=== PATIENT | female | born 1985 | race Caucasian/White ===

== ENCOUNTER 2020-06-13 16:06 | Outpatient (REF) | payer OTHER, SELFPAY | END 2020-06-13 16:07 | disposition home or self-care (01) | LOC: HO.LAB 16:06 | PROVIDERS: Visit Provider Internal Medicine | DX: Z20.828 Contact with and (suspected) exposure to other viral communicable diseases (principal) | CPT/HCPCS: C9803; U0003 ==

== ENCOUNTER 2020-11-15 10:34 | Outpatient (REF) | payer OTHER, SELFPAY ==
[2020-11-18 23:06] LABS: TS Negative Control Passed; TS Panel A 0; TS Panel B 2; TS Positive Control Passed; TSpotTB Negative (SeeBelow)
== END 2020-11-15 10:35 | disposition home or self-care (01) ==
LOC: HO.HMGCLDS 10:34
PROVIDERS: PCP Internal Medicine; Visit Provider Internal Medicine
DX: Z11.1 Encounter for screening for respiratory tuberculosis (principal)
CPT/HCPCS: 36415; 86481

== ENCOUNTER → 2021-11-05 09:44 | Outpatient (BNVA) | payer OTHER, SELFPAY | PROVIDERS: PCP Internal Medicine; Referring Provider Internal Medicine; Visit Provider Internal Medicine Cardiovascular Disease | DX: I49.8 Other specified cardiac arrhythmias (principal) | CPT/HCPCS: 93005; 99212 ==

== ENCOUNTER 2023-01-19 12:41 | Outpatient (AMB) | payer OTHER, SELFPAY ==
--- NOTE | 2023-01-19 13:57 | AM.OFFWIN_ITS ---
Intake Vital Signs 01/19/23 14:00 BP 120/82 Blood Pressure Location Lt brachial Position Sitting Pulse 82 Pulse Source Pulse Oximeter Pulse Oximetry (%) 99 Oxygen Delivery Method Room Air Intake Visit Reasons: EP Redness around big toe (lobby) Intake Note: Patient here for redness on left big toe for about 2 weeks. she is not sure if there was an injury as she has neuropathy and most of the time has a hard time feeling pain. Patient Tobacco Use Status: Former Tobacco user Allergies sulfamethoxazole [From Bactrim] Allergy (Mild, Verified 01/23/23 14:50) RASH trimethoprim [From Bactrim] Allergy (Mild, Verified 01/23/23 14:50) RASH oxycodone Allergy (Unknown, Verified 01/23/23 14:50) hives rash penicillin V Allergy (Unknown, Verified 01/23/23 14:50) hives, rash Sulfa (Sulfonamide Antibiotics) Allergy (Unknown, Verified 01/23/23 14:50) rash amoxicillin [Amoxicillin] Adverse Reaction (Mild, Verified 01/23/23 14:50) CANT FEEL LEGS Adhesive tape Allergy (Unknown, Uncoded 01/23/23 14:50) Rash Bactrim Allergy (Unknown, Uncoded 01/23/23 14:50) Anaphylaxis From PERCOCET Allergy (Unknown, Uncoded 01/23/23 14:50) RASH PCN Allergy (Unknown, Uncoded 01/23/23 14:50) Anaphylaxis Percocet Allergy (Unknown, Uncoded 01/23/23 14:50) Rash Medication List - Last Reconciled 01/23/23 by Umang Cohen MD aspirin (Adult Low Dose Aspirin) 162 mg PO DAILY doxycycline hyclate 100 mg PO BID insulin lispro subcut insulin pump cart,cont inf,BT (Omnipod Dash Pods (Gen 4) subcutaneous cartridge) As directed insulin pump cartridge As directed PNV no.151-pdlp-czlwi acid 28 mg iron- 800 mcg tabs PO propranolol ER 160 mg PO DAILY Do you need a note to return to daycare/school/sports/work: No HPI EP Redness around big toe (lobby) HPI Details 38-year-old female presents to the office for a sick visit. Patient has redness around the big toe of her right foot. [facility] Medical History (Updated 07/21/23 @ 14:51 by Umang Cohen MD) Annual physical exam Hidradenitis suppurativa HTN (hypertension) Hyperlipidemia IBS (irritable bowel syndrome) MDD (major depressive disorder) Migraine Normal Pap smear Palpitation POTS (postural orthostatic tachycardia syndrome) Psoriasis Type 2 diabetes mellitus Surgical History History of liver biopsy Hx of cholecystectomy Family History (Updated 01/21/23 @ 13:59 by Sandrine Emmanuel [facility]) Father Diabetes HTN (hypertension) Mother Multiple sclerosis Social History Household Members Other:: Student for respiratory therapy. Two children 11 and 18-year-old Housing: House Alcohol intake: current Alcohol intake frequency: holidays/special occasions only Patient Tobacco Use Status: Former Tobacco user e-Cigarette/Vaping Use: Never Used Current occupational status: unemployed Cognitive needs: No Hearing needs: No Vision needs: No Physical Exam Vital Signs: Last Vital Signs Pulse 82 01/19/23 14:00 BP 120/82 01/19/23 14:00 Pulse Ox 99 01/19/23 14:00 Oxygen Delivery Method Room Air 01/19/23 14:00 Extrem Other: Right foot: Great toe: Erythema beneath the nail base. Tender to touch. Assessment & Plan Assessment & Plan (1) Paronychia of fifth toe: Code(s): L03.039 - Cellulitis of unspecified toe Plan: Antibiotic called in. Keep foot elevated. Coding Level of Care Code Est Pt Level 3 (68047) Diagnoses Paronychia of fifth toe L03.039
[2023-01-19 14:00] VITALS: BP 120/82; PULSE 82; O2SAT 99
== END 2023-01-19 14:33 | disposition home or self-care (01) ==
PROVIDERS: PCP Internal Medicine; Visit Provider Internal Medicine
DX: L03.039 Cellulitis of unspecified toe (principal)
CPT/HCPCS: 99213

== ENCOUNTER 2023-01-21 13:51 | Outpatient (AMB) | payer OTHER, SELFPAY ==
--- NOTE | 2023-01-21 13:53 | A.OFFPC_ITS ---
Vital Signs 01/21/23 13:54 Height 5 ft 6 in Weight 201 lb BMI 32.4 BP 118/70 Blood Pressure Location Rt brachial Position Sitting Pulse 85 Pulse Source Pulse Oximeter Pulse Oximetry (%) 100 Oxygen Delivery Method Room Air Intake Visit Reasons: Podiatry Referral-Ingrown Toenail Intake Note: Pt is here today for a sick visit. Pt c/o ingrown nail in her toenail L foot. Allergies sulfamethoxazole [From Bactrim] Allergy (Mild, Verified 01/21/23 13:57) RASH trimethoprim [From Bactrim] Allergy (Mild, Verified 01/21/23 13:57) RASH oxycodone Allergy (Unknown, Verified 01/21/23 13:57) hives rash penicillin V Allergy (Unknown, Verified 01/21/23 13:57) hives, rash Sulfa (Sulfonamide Antibiotics) Allergy (Unknown, Verified 01/21/23 13:57) rash amoxicillin [Amoxicillin] Adverse Reaction (Mild, Verified 01/21/23 13:57) CANT FEEL LEGS Adhesive tape Allergy (Unknown, Uncoded 01/21/23 13:57) Rash Bactrim Allergy (Unknown, Uncoded 01/19/23 13:59) Anaphylaxis From PERCOCET Allergy (Unknown, Uncoded 01/21/23 13:57) RASH PCN Allergy (Unknown, Uncoded 01/21/23 13:57) Anaphylaxis Percocet Allergy (Unknown, Uncoded 01/21/23 13:57) Rash Medication List - Last Reconciled 01/21/23 by Linda Toney MD aspirin (Adult Low Dose Aspirin) 162 mg PO DAILY doxycycline hyclate 100 mg PO BID insulin lispro subcut insulin pump cart,cont inf,BT (Omnipod Dash Pods (Gen 4) subcutaneous cartridge) As directed insulin pump cartridge As directed PNV no.415-rybg-bblam acid 28 mg iron- 800 mcg tabs PO propranolol ER 160 mg PO DAILY Tobacco use date assessed: 01/21/23 Dental Screening Dental Screen Date: 01/21/23 Did you have a dental visit in the last 12 months?: Yes Did you have a dental problem in the last 6 months where you did not have access to dental care?: No Was dental information given to patient?: Patient has dentist HPI Podiatry Referral-Ingrown Toenail HPI Details Patient complains of left big toe pain and swelling for the last week. Patient denies any injury or discharge. Type 1 diabetes is controlled on insulin pump and patient follows up with endocrinology. [facility] Medical History (Updated 01/21/23 @ 14:29 by Linda Toney MD) Annual physical exam Hidradenitis suppurativa HTN (hypertension) Hyperlipidemia IBS (irritable bowel syndrome) MDD (major depressive disorder) Migraine Normal Pap smear Palpitation POTS (postural orthostatic tachycardia syndrome) Psoriasis Type 2 diabetes mellitus Surgical History History of liver biopsy Hx of cholecystectomy Family History (Updated 01/21/23 @ 13:59 by Sandrine Emmanuel [facility]) Father Diabetes HTN (hypertension) Mother Multiple sclerosis Social History Household Members Other:: Student for respiratory therapy. Two children 11 and 18-year-old Housing: House Alcohol intake: current Alcohol intake frequency: holidays/special occasions only Patient Tobacco Use Status: Former Tobacco user e-Cigarette/Vaping Use: Never Used Current occupational status: unemployed Cognitive needs: No Hearing needs: No Vision needs: No Questionnaire PHQ-9 Over the last 2 weeks, how often have you been bothered by any of the following problems? 1. Little interest or pleasure in doing things: more than half the days 2. Feeling down, depressed, or hopeless: not at all 3. Trouble falling or staying asleep, or sleeping too much: more than half the days 4. Feeling tired or having little energy: more than half the days 5. Poor appetite or overeating: not at all 6. Feeling bad about yourself - or that you are a failure or have let yourself or your family down: not at all 7. Trouble concentrating on things, such as reading the newspaper or watching television: not at all 8. Moving or speaking so slowly that other people could have noticed. Or the opposite - being so fidgety or restless that you have been moving around a lot more than usual: not at all 9. Thoughts that you would be better off or of hurting yourself in some way: not at all Total score: 6 Depression Screening Interpretation: Negative Source: Developed by Madi Molinaet B.W. Jeffery, Ang Smiley and colleagues, with an educational sharon from [employer]. Thrive Questionnaire Date Thrive assessed: 01/21/23 I am a: Patient What is your living situation today?: I have a steady place to live Within the past 12 months, did the food you bought not last and you didn't have the money to get more?: Never true Within the past 12 months, did you worry whether your food would run out before you got money to buy more?: Never true Do you have trouble paying for medicines?: No Do you have trouble getting transportation to medical appointments?: No Do you have trouble paying your heating and electricity bill?: No Do you have trouble taking care of your child, family member or friend?: No Do you have trouble with day-to-day activities such as bathing, preparing meals, shopping, managing finances, etc.?: No Are you currently unemployed and looking for a job?: No Are you interested in more education?: No Please select the resources that you would like help with: None Currently or been in a relationship where the following occur: no concerns reported AUDIT C Alcohol Use Questionnaire (AUDIT-C) 1. How often do you have a drink containing alcohol?: Never 3. How often do you have six or more drinks on one occasion?: Never Total Score: 0 Review of Systems Const All systems reviewed & are unremarkable except as noted in HPI and below Reports no additional complaints Eyes Reports no additional complaints ENT Reports no additional complaints Card Reports no additional complaints Resp Reports no additional complaints GI Reports no additional complaints Physical exam (Primary Care) Vital Signs: Last Vital Signs Pulse 85 01/21/23 13:54 BP 118/70 01/21/23 13:54 Pulse Ox 100 01/21/23 13:54 Oxygen Delivery Method Room Air 01/21/23 13:54 BMI result Body Mass Index 32.4 Tobacco/Smoking Status: Tobacco use Status Tobacco use date assessed 01/21/23 01/21/23 14:00 Patient Tobacco Use Status Former Tobacco user 01/21/23 14:00 e-Cigarette/Vaping Use Never Used 01/21/23 13:53 PHQ-9: PHQ-9 Score PHQ-9: Total score 6 01/21/23 14:00 Depression Screening Interpretation: Negative Thrive Assessment: Date of Thrive Assessment Date Thrive assessed 01/21/23 01/21/23 14:00 Currently or been in a relationship where the following occur: no concerns reported Const General: no acute distress HENMT Ears: hearing grossly normal bilaterally Neck Neck: Yes supple Resp Effort & Inspection: normal respiratory effort Auscultation: clear to auscultation bilaterally Cardio Rhythm: regular rhythm Heart sounds: S1 normal heart sound present and S2 normal heart sound present Extrem Other: Left 1st toe slight erythema and tenderness of the nailfold no discharge Assessment and Plan Assessment & Plan (1) Hyperlipidemia: Code(s): E78.5 - Hyperlipidemia, unspecified Plan: check lipids (2) Type 2 diabetes mellitus: Comment: IDDM , Dr. Boland, on Insulin pump,last A1C 8.6 09/2020 Code(s): E11.9 - Type 2 diabetes mellitus without complications Plan: cont current tx (3) POTS (postural orthostatic tachycardia syndrome): Comment: f/u Dr. Maxwell Code(s): I49.8 - Other specified cardiac arrhythmias (4) Ingrown toenail of left foot: Code(s): L60.0 - Ingrowing nail Plan: Doxycycline 100 mg twice a day for 7 days is prescribed and she will be referred to podiatry Orders: Orders Comprehensive [place]. Panel Fast Today E11.9 - Type 2 diabetes mellitus without complications, E78.5 - Hyperlipidemia, unspecified, I49.8 - Other specified cardiac arrhythmias Hemoglobin A1c Today E11.9 - Type 2 diabetes mellitus without complications, E78.5 - Hyperlipidemia, unspecified, I49.8 - Other specified cardiac arrhythmias Lipid Panel Today E11.9 - Type 2 diabetes mellitus without complications, E78.5 - Hyperlipidemia, unspecified, I49.8 - Other specified cardiac arrhythmias TSH reflex Free T4 Today E11.9 - Type 2 diabetes mellitus without complications, E78.5 - Hyperlipidemia, unspecified, I49.8 - Other specified cardiac arrhythmias Complete Blood Count Auto Diff Today E11.9 - Type 2 diabetes mellitus without complications, E78.5 - Hyperlipidemia, unspecified, I49.8 - Other specified cardiac arrhythmias Microalbumin, Random (w Creat) Today E11.9 - Type 2 diabetes mellitus without complications Referrals Podiatry Referral L60.0 - Ingrowing nail Medications: New doxycycline hyclate 100 mg PO BID 14 tabs 0RF Coding Level of Care Code Est Pt Level 3 (41154) Diagnoses Hyperlipidemia E78.5 Type 2 diabetes mellitus E11.9 POTS (postural orthostatic tachycardia syndrome) I49.8 Ingrown toenail of left foot L60.0
[2023-01-21 13:54] VITALS: BP 118/70; PULSE 85; O2SAT 100; BMI 32.4
== END 2023-01-21 14:31 | disposition home or self-care (01) ==
PROVIDERS: PCP Internal Medicine; Visit Provider Internal Medicine
DX: E78.5 Hyperlipidemia, unspecified (principal); E11.9 Type 2 diabetes mellitus without complications; I49.8 Other specified cardiac arrhythmias; L60.0 Ingrowing nail
CPT/HCPCS: 99213

== ENCOUNTER 2023-02-13 08:33 | Outpatient (REF) | payer OTHER, SELFPAY ==
[2023-02-13 11:36] LABS: MANUAL DIFF FLAG NO
[2023-02-13 11:47] LABS: Basophils Absolute Auto 0.1 X10*3/uL (0.0-0.2); Basophils Percent Auto 0.6 % (0-2); Eosinophils Absolute Auto 0.2 X10*3/uL (0.0-0.4); Eosinophils Percent Auto 2.3 % (0-4); Hematocrit 43.5 % (37.0-47.0); Hemoglobin 14.4 g/dl (12.0-16.0); Imm Gran Abs Auto 0.03 X10*3/uL (0.00-0.03); Imm Gran Pct Auto 0.3 % (0.0-0.4); Lymphocytes Absolute Auto 3.5 X10*3/uL (1.2-4.9); Lymphocytes Percent Auto 34.7 % (20-40); Mean Corpuscular HGB Conc 33.1 g/dl (31.0-35.0); Mean Corpuscular Hemoglobin 29.1 pg (27.0-33.0); Mean Corpuscular Volume 88.1 fL (80.0-98.0); Monocytes Percent Auto 9.6 % (2-11); Neutrophils Absolute Auto 5.3 x10*3/uL (2.0-8.3); Neutrophils Percent Auto 52.5 % (45-73); Platelet Count 308 X10*3/uL (160-400); Red Blood Count 4.94 X10*6/uL (4.20-5.50); Red Cell Distribution Width 12.8 % (11.0-16.0); White Blood Count 10.1 X10*3/uL (4.8-10.8)
[2023-02-13 12:15] LABS: Estimated Average Glucose 183 mg/dL
[2023-02-13 12:19] LABS: Creatinine Urine 184.38 mg/dL
[2023-02-13 12:35] LABS: Alanine Aminotransferase 26 U/L (0-31); Alkaline Phosphatase 86 U/L (39-117); Anion Gap 13 (12-20); Aspartate Amino Transferase 18 U/L (5-31); Bilirubin Total 0.5 mg/dL (0.0-1.0); Blood Urea Nitrogen 11 mg/dL (9-16); Calcium 9.9 mg/dL (8.4-10.2); Carbon Dioxide 23 mmol/L (22-29); Chloride 104 mmol/L (96-108); Cholesterol 178 mg/dL; Estimated Glomerular Filt Rate > 60; Glucose Fasting 163 mg/dL (60-99); HDL Cholesterol 38 mg/dL; LDL Cholesterol Calculated 111 mg/dl; Potassium 3.8 mmol/L (3.3-5.1); Sodium 136 mmol/L (135-145); Total Protein 8.1 g/dL (6.5-8.0); Triglycerides 148 mg/dL
[2023-02-13 12:40] LABS: TSH reflex Free T4 1.42 uIU/mL (0.32-4.0)
== END 2023-02-13 08:34 | disposition home or self-care (01) ==
LOC: HO.HMGCLDS 08:33
PROVIDERS: PCP Internal Medicine; Visit Provider Internal Medicine
DX: E11.9 Type 2 diabetes mellitus without complications (principal); E78.5 Hyperlipidemia, unspecified; I49.8 Other specified cardiac arrhythmias
CPT/HCPCS: 36415; 80053; 80061; 82043; 83036; 84443; 85025

== ENCOUNTER 2023-02-17 08:36 | Outpatient (AMB) | payer OTHER, SELFPAY ==
--- NOTE | 2023-02-17 09:10 | MHC.PC.OV ---
Vital Signs 02/17/23 09:11 Height 5 ft 6 in Weight 200 lb BMI 32.3 BP 104/66 Blood Pressure Location Rt brachial Position Sitting Pulse 88 Pulse Source Pulse Oximeter Pulse Oximetry (%) 99 Oxygen Delivery Method Room Air Intake Visit Reasons: Physical exam Intake Note: Pt is here today for PE. 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 Allergies sulfamethoxazole [From Bactrim] Allergy (Mild, Verified 02/17/23 09:20) RASH trimethoprim [From Bactrim] Allergy (Mild, Verified 02/17/23 09:20) RASH oxycodone Allergy (Unknown, Verified 02/17/23 09:20) hives rash penicillin V Allergy (Unknown, Verified 02/17/23 09:20) hives, rash Sulfa (Sulfonamide Antibiotics) Allergy (Unknown, Verified 02/17/23 09:20) rash amoxicillin [Amoxicillin] Adverse Reaction (Mild, Verified 02/17/23 09:20) CANT FEEL LEGS Adhesive tape Allergy (Unknown, Uncoded 02/17/23 09:20) Rash Bactrim Allergy (Unknown, Uncoded 02/17/23 09:20) Anaphylaxis From PERCOCET Allergy (Unknown, Uncoded 02/17/23 09:20) RASH PCN Allergy (Unknown, Uncoded 02/17/23 09:20) Anaphylaxis Percocet Allergy (Unknown, Uncoded 02/17/23 09:20) Rash Medication List - Last Reconciled 02/17/23 by Linda Toney MD aspirin (Adult Low Dose Aspirin) 162 mg PO DAILY insulin lispro subcut insulin pump cart,cont inf,BT (Omnipod Dash Pods (Gen 4) subcutaneous cartridge) As directed insulin pump cartridge As directed PNV no.600-haqp-posra acid 28 mg iron- 800 mcg tabs PO propranolol ER 160 mg PO DAILY Tobacco use date assessed: 01/21/23 HPI Physical exam HPI Details Pt presents for PE. She follows up with residential concierge for type 1 diabetes and has been on insulin pump. Patient was evaluated by horse breaker for left eyelid ptosis and was recommended to see neurologist, have carotid artery ultrasound and chest x-ray to rule out Marshal's syndrome. [facility] Medical History (Updated 02/17/23 @ 10:23 by Linda Toney MD) Annual physical exam Hidradenitis suppurativa HTN (hypertension) Hyperlipidemia IBS (irritable bowel syndrome) MDD (major depressive disorder) Migraine Normal Pap smear Palpitation POTS (postural orthostatic tachycardia syndrome) Psoriasis Type 2 diabetes mellitus Surgical History History of liver biopsy Hx of cholecystectomy Family History Father Diabetes HTN (hypertension) Mother Multiple sclerosis Social History Household Members Other:: Student for respiratory therapy. Two children 11 and 18-year-old Housing: House Alcohol intake: current Alcohol intake frequency: holidays/special occasions only Patient Tobacco Use Status: Former Tobacco user e-Cigarette/Vaping Use: Never Used Current occupational status: unemployed Cognitive needs: No Hearing needs: No Vision needs: No Questionnaire Thrive Questionnaire Date Thrive assessed: 01/21/23 I am a: Patient What is your living situation today?: I have a steady place to live Within the past 12 months, did the food you bought not last and you didn't have the money to get more?: Never true Within the past 12 months, did you worry whether your food would run out before you got money to buy more?: Never true AUDIT C Alcohol Use Questionnaire (AUDIT-C) 1. How often do you have a drink containing alcohol?: Never 3. How often do you have six or more drinks on one occasion?: Never Total Score: 0 ROHIT-7 AMB Questionnaire ROHIT-7 Feeling nervous, anxious, or on edge: 1 = Several days Not being able to stop or control worryin = Several days Worrying too much about different things: 1 = Several days Trouble relaxin = More than half the days Being so restless that it is hard to sit still: 1 = Several days Becoming easily annoyed or irritable: 3 = Nearly every day Feeling afraid as if something awful might happen: 1 = Several days Total ROHIT-7 score (0-4 normal; 5-9 mild; 10-14 moderate; 15-21 severe): 10 Source: Developed by Drs. Arun Raphael, Galina Gil, Ang Smiley and colleagues, with an educational sharon from [employer]. Review of Systems Const All systems reviewed & are unremarkable except as noted in HPI and below Reports no additional complaints Eyes Reports no additional complaints ENT Reports no additional complaints Card Reports no additional complaints Resp Reports no additional complaints GI Reports no additional complaints Reports no additional complaints Musc Reports no additional complaints Physical exam (Primary Care) Vital Signs: Last Vital Signs Pulse 88 02/17/23 09:11 BP 104/66 02/17/23 09:11 Pulse Ox 99 02/17/23 09:11 Oxygen Delivery Method Room Air 02/17/23 09:11 BMI result Body Mass Index 32.3 Tobacco/Smoking Status: Tobacco use Status Tobacco use date assessed 01/21/23 02/17/23 09:11 Patient Tobacco Use Status Former Tobacco user 02/17/23 09:11 e-Cigarette/Vaping Use Never Used 02/17/23 09:11 Thrive Assessment: Date of Thrive Assessment Date Thrive assessed 01/21/23 02/17/23 09:11 Const General: no acute distress HENMT Head: Yes normal to inspection Ears: hearing grossly normal bilaterally General nose exam: Normal external nose present Face and sinus: Yes normal facial exam Mouth: Normal oral and palatal mucosa present Throat: Yes posterior oropharynx normal Eyes General: appearance normal, both eyes and all related structures Neck Neck: Yes no lymphadenopathy and Yes supple Resp Effort & Inspection: normal respiratory effort Auscultation: clear to auscultation bilaterally Cardio Rhythm: regular rhythm Heart sounds: S1 normal heart sound present and S2 normal heart sound present GI Inspection: Yes normal to inspection Palpation (GI): Soft to palpation Percussion: Yes normal to percussion Auscultation: normal bowel sounds Assessment and Plan Assessment & Plan (1) Ptosis of eyelid, left: Code(s): H02.402 - Unspecified ptosis of left eyelid Plan: Check carotid artery ultrasound chest x-ray and referred to Neurology (2) Type 2 diabetes mellitus: Comment: IDDM , Dr. Boland, on Insulin pump,last A1C 8.6 09/2020 Code(s): E11.9 - Type 2 diabetes mellitus without complications Plan: A1c was 8.0. ADA diet regular physical activity weight loss discussed with the patient. She follows up with residential concierge every 3 months and has her insulin pump adjusted (3) Hyperlipidemia: Comment: Diet-controlled Code(s): E78.5 - Hyperlipidemia, unspecified Plan: Continue low-cholesterol diet check lipid profile in 1 year (4) POTS (postural orthostatic tachycardia syndrome): Comment: f/u Dr. Maxwell Code(s): I49.8 - Other specified cardiac arrhythmias Plan: Follow-up with Cardiology Orders: Orders US carotid duplex BI Today H02.402 - Unspecified ptosis of left eyelid XR chest 1V Today H02.402 - Unspecified ptosis of left eyelid Comprehensive [place]. Panel Fast 365 Days E11.9 - Type 2 diabetes mellitus without complications, E78.5 - Hyperlipidemia, unspecified, I49.8 - Other specified cardiac arrhythmias, Z00.00 - Encounter for general adult medical examination without abnormal findings Hemoglobin A1c 365 Days E11.9 - Type 2 diabetes mellitus without complications, E78.5 - Hyperlipidemia, unspecified, I49.8 - Other specified cardiac arrhythmias, Z00.00 - Encounter for general adult medical examination without abnormal findings Lipid Panel 365 Days E11.9 - Type 2 diabetes mellitus without complications, E78.5 - Hyperlipidemia, unspecified, I49.8 - Other specified cardiac arrhythmias, Z00.00 - Encounter for general adult medical examination without abnormal findings TSH reflex Free T4 365 Days E11.9 - Type 2 diabetes mellitus without complications, E78.5 - Hyperlipidemia, unspecified, I49.8 - Other specified cardiac arrhythmias, Z00.00 - Encounter for general adult medical examination without abnormal findings Vitamin D 25-OH Total 365 Days E11.9 - Type 2 diabetes mellitus without complications, E78.5 - Hyperlipidemia, unspecified, I49.8 - Other specified cardiac arrhythmias, Z00.00 - Encounter for general adult medical examination without abnormal findings Complete Blood Count Auto Diff 365 Days E11.9 - Type 2 diabetes mellitus without complications, E78.5 - Hyperlipidemia, unspecified, I49.8 - Other specified cardiac arrhythmias, Z00.00 - Encounter for general adult medical examination without abnormal findings Referrals Neurology Referral H02.402 - Unspecified ptosis of left eyelid Coding Level of Care Code Est Pt Prev Care 18-39y(66138) Diagnoses Ptosis of eyelid, left H02.402 Type 2 diabetes mellitus E11.9 Hyperlipidemia E78.5 POTS (postural orthostatic tachycardia syndrome) I49.8
[2023-02-17 09:11] VITALS: BP 104/66; PULSE 88; O2SAT 99; BMI 32.3
== END 2023-02-17 10:26 | disposition home or self-care (01) ==
PROVIDERS: PCP Internal Medicine; Visit Provider Internal Medicine
DX: Z00.00 Encounter for general adult medical examination without abnormal findings (principal); H02.402 Unspecified ptosis of left eyelid; E11.9 Type 2 diabetes mellitus without complications; E78.5 Hyperlipidemia, unspecified; I49.8 Other specified cardiac arrhythmias
CPT/HCPCS: 99395

== ENCOUNTER 2023-02-23 14:53 | Outpatient (REF) | payer OTHER, SELFPAY ==
--- NOTE | ~2023-02-23 | XR_ITS ---
EXAMINATION: XR CHEST CLINICAL INFORMATION: Ptosis left eyelid COMPARISON: Previous chest x-ray most recent January 2015 TECHNIQUE: 2 views of the chest were obtained. FINDINGS: No significant abnormality is noted involving the heart, lungs, mediastinum, bony thorax or soft tissues. XR/XR chest 2V IMPRESSION: Unremarkable examination.
--- NOTE | ~2023-02-23 | US_ITS ---
EXAMINATION: US EXTRACRANIAL CAROTID DUPLEX, BILATERAL CLINICAL INFORMATION: Left eye ptosis. COMPARISON: None available. TECHNIQUE: Real-time ultrasound and Doppler techniques (integrating B-mode 2-D vascular images, Doppler spectral analysis and color-flow Doppler imaging) were utilized to interrogate the extracranial carotid arteries, the vertebral arteries and proximal subclavian arteries bilaterally. The degree of stenosis is determined by criteria similar to NASCET. FINDINGS: Right Side: 1. There is mild atherosclerotic plaque seen in the bifurcation/proximal ICA region. 2. The common carotid artery PSV proximally is 126 cm/s and distally 93 cm/s. 3. The proximal internal carotid artery velocities are 95 cm/s systolic and 27 cm/s diastolic. 4. The proximal external carotid artery PSV is 94 cm/s. 5. The vertebral artery shows antegrade flow. 6. The subclavian artery waveforms are normal. Left Side: 1. There is no atherosclerotic plaque seen in the bifurcation/proximal ICA region. 2. The common carotid artery PSV proximally is 120 cm/s and distally 84 cm/s. 3. The proximal internal carotid artery velocities are 84 cm/s systolic and 28 cm/s diastolic. 4. The proximal external carotid artery PSV is 86 cm/s. 5. The vertebral artery shows antegrade flow. 6. The subclavian artery waveforms are normal. US/US carotid duplex BI IMPRESSION: 1. RIGHT: Minimal, non-hemodynamically significant stenosis of the proximal right internal carotid artery corresponding to a 0-49% stenosis by velocity criteria. 2. LEFT: Normal left internal carotid artery without atherosclerotic plaque or hemodynamically significant stenosis.
== END 2023-02-23 14:54 | disposition home or self-care (01) ==
LOC: HO.US 14:53
PROVIDERS: PCP Internal Medicine; Visit Provider Internal Medicine
DX: H02.402 Unspecified ptosis of left eyelid (principal)
CPT/HCPCS: 71046; 93880

== ENCOUNTER 2023-03-02 10:36 | Outpatient (AMB) | payer OTHER, SELFPAY ==
--- NOTE | 2023-03-02 10:41 | A.OFFVIS_ITS ---
Intake Vital Signs 03/02/23 10:43 Height 5 ft 6 in Weight 199 lb 2 oz BMI 32.1 BP 110/82 Blood Pressure Location Rt brachial Position Sitting Pulse 82 Pulse Source Pulse Oximeter Pulse Oximetry (%) 96 Oxygen Delivery Method Room Air Intake Visit Reasons: INP-Unspecified ptosis of left eyelid-confirmed Intake Note: Pt presents to the office today for a new patient visit for uspecified ptosis of left eyelid. She states this started about a year ago. Pts states that when she is tired her eye tends to close more. Pt states she get double vision and blurred vision constantly. Pt does drive but only in times of emergencies or if her is at work. She states sunlight bothers her eyes more. Allergies sulfamethoxazole [From Bactrim] Allergy (Mild, Verified 03/02/23 10:41) RASH trimethoprim [From Bactrim] Allergy (Mild, Verified 03/02/23 10:41) RASH oxycodone Allergy (Unknown, Verified 03/02/23 10:41) hives rash penicillin V Allergy (Unknown, Verified 03/02/23 10:41) hives, rash Sulfa (Sulfonamide Antibiotics) Allergy (Unknown, Verified 03/02/23 10:41) rash amoxicillin [Amoxicillin] Adverse Reaction (Mild, Verified 03/02/23 10:41) CANT FEEL LEGS Adhesive tape Allergy (Unknown, Uncoded 03/02/23 10:41) Rash Bactrim Allergy (Unknown, Uncoded 03/02/23 10:41) Anaphylaxis From PERCOCET Allergy (Unknown, Uncoded 03/02/23 10:41) RASH PCN Allergy (Unknown, Uncoded 03/02/23 10:41) Anaphylaxis Percocet Allergy (Unknown, Uncoded 03/02/23 10:41) Rash HPI HPI Comments History of Present Illness Details 38y/o female comes for evaluation of left eyelid drooping she started noticing droopy left eye about 8 months ago . she also has double vision on and off . It is worse with bright light.she denies pain. she has h/o diabetes - over 20 years , has insulin pump she denies head injury or headaches. she had carotid doppler last week which showed minimal disease on the right. she denies numbness or tingling in herface. Denies speech problems, denies vertigo , tongue numbness or dysphagia. she has loud snoring with frequent arousals and daytime sleepiness. [facility]LY [facility] Medical History (Updated 03/02/23 @ 11:19 by Antonia Rock MD) Annual physical exam Diplopia Hidradenitis suppurativa HTN (hypertension) Hyperlipidemia Hypersomnia IBS (irritable bowel syndrome) Loud snoring MDD (major depressive disorder) Migraine Normal Pap smear Palpitation POTS (postural orthostatic tachycardia syndrome) Psoriasis Type 2 diabetes mellitus Surgical History History of liver biopsy Hx of cholecystectomy Family History Father Diabetes HTN (hypertension) Mother Multiple sclerosis Social History Household Members Other:: Student for respiratory therapy. Two children 11 and 18-year-old Housing: House Alcohol intake: current Alcohol intake frequency: holidays/special occasions only Patient Tobacco Use Status: Former Tobacco user e-Cigarette/Vaping Use: Never Used Current occupational status: unemployed Cognitive needs: No Hearing needs: No Vision needs: No Review of Systems Const Reports snoring and Reports stops breathing during sleep Eyes Reports diplopia Resp Reports snoring Musc Reports numbness and Reports tingling Neuro Reports numbness and Reports tingling Physical Exam Vital Signs: Last Vital Signs Pulse 82 03/02/23 10:43 BP 110/82 03/02/23 10:43 Pulse Ox 96 03/02/23 10:43 Oxygen Delivery Method Room Air 03/02/23 10:43 BMI result Body Mass Index 32.1 Const General: cooperative, healthy appearing and comfortable Nutritional Appearance: overweight Orientation/consciousness: patient oriented x3 Eyes Pupils: Equal, round and reactive pupils present Neck Neck: Yes no meningeal signs Neuro Other: left eye partial ptosis, no diplopia , no nystagmus General: patient oriented x3, no meningeal signs and no focal motor deficits Cranial nerves: Yes Facial sensation intact/muscles of mastication intact, Yes Equal, round and reactive pupils present, Yes Bilaterally intact EOM present, Yes Nystagmus not present and Yes Normal facial strength present Cognition (Neuro): normal cognition Gait exam (Neuro): Normal gait present Motor exam (neuro): 5/5 motor strength present throughout, Normal motor muscle tone present throughout and Motor abnormalities not present Deep tendon reflexes (DTR's): Right triceps reflex intensity grade: 1+, Left triceps reflex intensity grade: 1+, Rt Biceps (C5, C6): 1+, Left biceps reflex intensity grade: 1+, Right brachioradialis reflex intensity grade: 1+, Left brachioradialis reflex intensity grade: 1+, Right patellar reflex intensity grade: 1+ and Left patellar reflex intensity grade: 1+ Coordination: [id number] test normal and [id number] test normal Pupils: Normal pupillary reactivity/response: right and left Psych Appearance: grossly normal Assessment & Plan Assessment & Plan (1) Ptosis of eyelid, left: Comment: ? left 3 rd nerve palsy R/O aneurysm Code(s): H02.402 - Unspecified ptosis of left eyelid (2) Diplopia: Code(s): H53.2 - Diplopia (3) Loud snoring: Code(s): R06.83 - Snoring (4) Hypersomnia: Code(s): G47.10 - Hypersomnia, unspecified Plan I will schedule her for MRI and MRA to r/o 3rd nerve compression Home sleep study to r/o sleep apnea. Orders: Orders MR angio head wo/w con Today H02.402 - Unspecified ptosis of left eyelid, H53.2 - Diplopia MR head/brain wo con Today H02.402 - Unspecified ptosis of left eyelid, H53.2 - Diplopia RT home sleep study Today G47.10 - Hypersomnia, unspecified, R06.83 - Snoring Coding Level of Care Code New Pt Level 4 (23571) Diagnoses Ptosis of eyelid, left H02.402 Diplopia H53.2 Loud snoring R06.83 Hypersomnia G47.10
[2023-03-02 10:43] VITALS: BP 110/82; PULSE 82; O2SAT 96; BMI 32.1
== END 2023-03-02 11:17 | disposition home or self-care (01) ==
PROVIDERS: PCP Internal Medicine; Visit Provider Psychiatry & Neurology Neurology
DX: H02.402 Unspecified ptosis of left eyelid (principal); H53.2 Diplopia; R06.83 Snoring; G47.10 Hypersomnia, unspecified
CPT/HCPCS: 99204

== ENCOUNTER → 2023-03-02 10:36 | Outpatient (BNVA) | payer OTHER, SELFPAY | PROVIDERS: PCP Internal Medicine; Visit Provider Psychiatry & Neurology Neurology | DX: H02.402 Unspecified ptosis of left eyelid (principal); H53.2 Diplopia; R06.83 Snoring; G47.10 Hypersomnia, unspecified | CPT/HCPCS: 99202 ==

== ENCOUNTER → 2023-04-06 16:08 | Outpatient (REF) | payer OTHER, SELFPAY | LOC: HO.SL 16:08 | PROVIDERS: PCP Internal Medicine; Visit Provider Psychiatry & Neurology Neurology | DX: G47.10 Hypersomnia, unspecified (principal); R06.83 Snoring | CPT/HCPCS: 95806 ==

== ENCOUNTER → 2023-04-06 16:17 | Outpatient (BNV) | payer OTHER, SELFPAY | PROVIDERS: PCP Internal Medicine; Visit Provider Psychiatry & Neurology Neurology | DX: R06.83 Snoring (principal) | CPT/HCPCS: 95806 ==

== ENCOUNTER 2023-04-08 10:35 | Outpatient (REF) | payer OTHER, SELFPAY ==
--- NOTE | ~2023-04-08 | MR_ITS ---
EXAMINATION: MR BRAIN WITHOUT CONTRAST MR ANGIOGRAPHY HEAD WITHOUT AND WITH CONTRAST CLINICAL INFORMATION: Diplopia. COMPARISON: Brain MRI report from 04/11/2009. TECHNIQUE: Multiplanar, multisequence imaging of the brain was obtained without intravenous administration of contrast. Postcontrast and 3-D [id number] MR angiography acquired. Multiple 3-D reformatted images are processed on the technologist workstation. The patient received 10 mL of Gadavist intravenously for the MR angiogram portion of the study. FINDINGS: No diffusion abnormalities are identified to suggest an acute or subacute infarct. The ventricles are normal in size. No mass effect or midline shift is seen. Nonspecific mild scattered white matter signal changes are visible. No extra-axial fluid collections are seen. The brainstem and cerebellum are normal. No pathologic magnetic susceptibility artifact is identified on the gradient refocused acquisition. The craniovertebral junction, marrow signal, and midline structures are normal. The major intracranial flow voids at the level of the viejas of [place] are preserved. The dural venous sinus flow voids are maintained. The mastoid air cells are well aerated. There is mild patchy mucosal thickening in the paranasal sinuses. MRA of the viejas of [place] demonstrates a normal caliber to the anterior and posterior circulation vasculature. No stenoses or occlusions are seen. No vascular malformation or aneurysms are identified. MR/MR angio head wo/w con IMPRESSION: Nonspecific mild scattered white matter signal changes. Otherwise, no acute process. Normal MRA of the head.
--- NOTE | ~2023-04-08 | MR_ITS ---
EXAMINATION: MR BRAIN WITHOUT CONTRAST MR ANGIOGRAPHY HEAD WITHOUT AND WITH CONTRAST CLINICAL INFORMATION: Diplopia. COMPARISON: Brain MRI report from 04/11/2009. TECHNIQUE: Multiplanar, multisequence imaging of the brain was obtained without intravenous administration of contrast. Postcontrast and 3-D [id number] MR angiography acquired. Multiple 3-D reformatted images are processed on the technologist workstation. The patient received 10 mL of Gadavist intravenously for the MR angiogram portion of the study. FINDINGS: No diffusion abnormalities are identified to suggest an acute or subacute infarct. The ventricles are normal in size. No mass effect or midline shift is seen. Nonspecific mild scattered white matter signal changes are visible. No extra-axial fluid collections are seen. The brainstem and cerebellum are normal. No pathologic magnetic susceptibility artifact is identified on the gradient refocused acquisition. The craniovertebral junction, marrow signal, and midline structures are normal. The major intracranial flow voids at the level of the lum[place] of [place] are preserved. The dural venous sinus flow voids are maintained. The mastoid air cells are well aerated. There is mild patchy mucosal thickening in the paranasal sinuses. MRA of the lum[place] of [place] demonstrates a normal caliber to the anterior and posterior circulation vasculature. No stenoses or occlusions are seen. No vascular malformation or aneurysms are identified. MR/MR head/brain wo con IMPRESSION: Nonspecific mild scattered white matter signal changes. Otherwise, no acute process. Normal MRA of the head.
[2023-04-08] MEDS: gadobutroL 10 ML VIAL IVPUSH (11:58)
== END 2023-04-08 10:36 | disposition home or self-care (01) ==
LOC: HO.MRI 10:35
PROVIDERS: PCP Internal Medicine; Visit Provider Psychiatry & Neurology Neurology
DX: H53.2 Diplopia (principal); H02.402 Unspecified ptosis of left eyelid
CPT/HCPCS: 70546; 70551; A9585

== ENCOUNTER → 2023-05-08 20:30 | Outpatient (REF) | payer OTHER, SELFPAY | LOC: HO.SL 20:30 | PROVIDERS: PCP Internal Medicine; Visit Provider Nurse Practitioner Family | DX: G47.10 Hypersomnia, unspecified (principal); R06.83 Snoring | CPT/HCPCS: 95810 ==

== ENCOUNTER → 2023-05-08 22:29 | Outpatient (BNV) | payer OTHER, SELFPAY | PROVIDERS: PCP Internal Medicine; Visit Provider Psychiatry & Neurology Neurology | DX: G47.10 Hypersomnia, unspecified (principal) | CPT/HCPCS: 95810 ==

== ENCOUNTER 2023-06-15 09:23 | Outpatient (AMB) | payer OTHER, SELFPAY ==
--- NOTE | 2023-06-15 09:28 | MHC.OFFVIS ---
Intake Vital Signs 06/15/23 09:30 Height 5 ft 6 in Weight 196 lb 6 oz BMI 31.7 BP 116/72 Blood Pressure Location Lt brachial Position Sitting Respiration 15 Pulse 81 Pulse Source Pulse Oximeter Pulse Oximetry (%) 98 Oxygen Delivery Method Room Air Intake Visit Reasons: 3m f/u ptosis of left eyelid - Conf Intake Note: Pt presents to the office for 3 month follow up for blepharoptosis. Director Of Assisted Living Required: No Allergies sulfamethoxazole [From Bactrim] Allergy (Mild, Verified 06/15/23 09:29) RASH trimethoprim [From Bactrim] Allergy (Mild, Verified 06/15/23 09:29) RASH oxycodone Allergy (Unknown, Verified 06/15/23 09:29) hives rash penicillin V Allergy (Unknown, Verified 06/15/23 09:29) hives, rash Sulfa (Sulfonamide Antibiotics) Allergy (Unknown, Verified 06/15/23 09:29) rash amoxicillin [Amoxicillin] Adverse Reaction (Mild, Verified 06/15/23 09:29) CANT FEEL LEGS Adhesive tape Allergy (Unknown, Uncoded 06/15/23 09:29) Rash Bactrim Allergy (Unknown, Uncoded 06/15/23 09:29) Anaphylaxis From PERCOCET Allergy (Unknown, Uncoded 06/15/23 09:29) RASH PCN Allergy (Unknown, Uncoded 06/15/23 09:29) Anaphylaxis Percocet Allergy (Unknown, Uncoded 06/15/23 09:29) Rash Medication List - Last Reconciled 06/15/23 by Antonia Rock MD aspirin (Adult Low Dose Aspirin) 162 mg PO DAILY insulin lispro subcut insulin pump cart,cont inf,BT (Omnipod Dash Pods (Gen 4) subcutaneous cartridge) As directed insulin pump cartridge As directed [MuSK antibody levels As directed] propranolol ER 160 mg PO DAILY pyridostigmine bromide 30 mg PO TID HPI HPI Comments History of Present Illness Details 38y/o female comes for follow up of left eyelid drooping . Her MRI MRA brain were normal. she started noticing droopy left eye about 11 months ago . she also has double vision on and off . It is worse with bright light.she denies pain. she has h/o diabetes - over 20 years , has insulin pump she denies head injury or headaches. she had carotid doppler last week which showed minimal disease on the right. she denies numbness or tingling in her face. Denies speech problems, denies vertigo , tongue numbness or dysphagia. she has loud snoring with frequent arousals and daytime sleepiness- sleep study was normal [facility] Medical History Hypersomnia Loud snoring Diplopia Annual physical exam Normal Pap smear Hyperlipidemia POTS (postural orthostatic tachycardia syndrome) Migraine Hidradenitis suppurativa HTN (hypertension) MDD (major depressive disorder) Psoriasis IBS (irritable bowel syndrome) Palpitation Type 2 diabetes mellitus Surgical History Hx of cholecystectomy History of liver biopsy Family History Father Diabetes HTN (hypertension) Mother Multiple sclerosis Social History Household Members Other:: Student for respiratory therapy. Two children 11 and 18-year-old Housing: House Alcohol intake: current Alcohol intake frequency: holidays/special occasions only Patient Tobacco Use Status: Former Tobacco user e-Cigarette/Vaping Use: Never Used Current occupational status: unemployed Cognitive needs: No Hearing needs: No Vision needs: No Physical Exam Vital Signs: Last Vital Signs Pulse 81 06/15/23 09:30 Resp 15 06/15/23 09:30 BP 116/72 06/15/23 09:30 Pulse Ox 98 06/15/23 09:30 Oxygen Delivery Method Room Air 06/15/23 09:30 BMI result Body Mass Index 31.7 Const General: cooperative, healthy appearing and comfortable Nutritional Appearance: overweight Orientation/consciousness: patient oriented x3 Eyes Pupils: Equal, round and reactive pupils present Neck Neck: Yes no meningeal signs Neuro Other: left eye partial ptosis, no diplopia , no nystagmus General: patient oriented x3, no meningeal signs and no focal motor deficits Cranial nerves: Yes Facial sensation intact/muscles of mastication intact, Yes Equal, round and reactive pupils present, Yes Bilaterally intact EOM present, Yes Nystagmus not present and Yes Normal facial strength present Cognition (Neuro): normal cognition Gait exam (Neuro): Normal gait present Motor exam (neuro): 5/5 motor strength present throughout, Normal motor muscle tone present throughout and Motor abnormalities not present Coordination: [id number] test normal and [id number] test normal Pupils: Normal pupillary reactivity/response: right and left Psych Appearance: grossly normal Assessment & Plan Assessment & Plan (1) Ptosis of eyelid, left: Comment: ? left 3 rd nerve palsy R/O aneurysm Code(s): H02.402 - Unspecified ptosis of left eyelid (2) Diplopia: Code(s): H53.2 - Diplopia Plan Reviewed MRI MRA and sleep study results I suggested f/u with ophthalmology will check her MuSK , ACh antibodies- and trial he ysabel pyridostigmine 30 mg tid. she will contact me in 1 week for response. diabetes might be contributing to 3 rd nerve paresis. Discussed about monitoring and will follow up if she worsens Snoring- suggested breath easy or breath right nasal strips . Orders: Orders Acetylcholine Cath Laboratory Technician Modulating Today H02.402 - Unspecified ptosis of left eyelid, H53.2 - Diplopia Acetylcholine Recept. Blocking Today H02.402 - Unspecified ptosis of left eyelid, H53.2 - Diplopia Acetylcholine Receptor Binding Today H02.402 - Unspecified ptosis of left eyelid, H53.2 - Diplopia Medications: New [MuSK antibody levels] As directed 1 ea 0RF pyridostigmine bromide 30 mg PO TID 90 tabs 0RF Coding Level of Care Code Est Pt Level 4 (98934) Diagnoses Ptosis of eyelid, left H02.402 Diplopia H53.2
[2023-06-15 09:30] VITALS: BP 116/72; PULSE 81; RESP 15; O2SAT 98; BMI 31.7
== END 2023-06-15 09:54 | disposition home or self-care (01) ==
PROVIDERS: PCP Internal Medicine; Visit Provider Psychiatry & Neurology Neurology
DX: H02.402 Unspecified ptosis of left eyelid (principal); H53.2 Diplopia
CPT/HCPCS: 99214

== ENCOUNTER → 2023-06-15 09:23 | Outpatient (BNVA) | payer OTHER, SELFPAY | PROVIDERS: PCP Internal Medicine; Visit Provider Psychiatry & Neurology Neurology | DX: H02.402 Unspecified ptosis of left eyelid (principal); H53.2 Diplopia | CPT/HCPCS: 99212 ==

== ENCOUNTER 2023-07-18 09:43 | Outpatient (AMB) | payer OTHER, SELFPAY ==
--- NOTE | 2023-07-18 13:17 | MHC.OFFWIV ---
Intake Vital Signs 07/18/23 13:19 Weight 195 lb BP 120/90 H Blood Pressure Location Rt brachial Position Sitting Pulse 80 Pulse Source Pulse Oximeter Temp 97.9 F Temp Source Oral Pulse Oximetry (%) 100 Oxygen Delivery Method Room Air Intake Visit Reasons: EP open abscess lft breast (lobby) Intake Note: Patient here for abscess under left breast that has been leaking for about 1 week. Patient Tobacco Use Status: Former Tobacco user Allergies sulfamethoxazole [From Bactrim] Allergy (Mild, Verified 07/18/23 13:20) RASH trimethoprim [From Bactrim] Allergy (Mild, Verified 07/18/23 13:20) RASH oxycodone Allergy (Unknown, Verified 07/18/23 13:20) hives rash penicillin V Allergy (Unknown, Verified 07/18/23 13:20) hives, rash Sulfa (Sulfonamide Antibiotics) Allergy (Unknown, Verified 07/18/23 13:20) rash amoxicillin [Amoxicillin] Adverse Reaction (Mild, Verified 07/18/23 13:20) CANT FEEL LEGS Adhesive tape Allergy (Unknown, Uncoded 07/18/23 13:20) Rash Bactrim Allergy (Unknown, Uncoded 07/18/23 13:20) Anaphylaxis From PERCOCET Allergy (Unknown, Uncoded 07/18/23 13:20) RASH PCN Allergy (Unknown, Uncoded 07/18/23 13:20) Anaphylaxis Percocet Allergy (Unknown, Uncoded 07/18/23 13:20) Rash Do you need a note to return to daycare/school/sports/work: No HPI EP open abscess lft breast (lobby) HPI Details Patient is a 38-year-old female with a history of hidradenitis suppurativa who comes to the walk-in clinic complaining of Patient here for abscess under left breast that has been leaking for about 1 week. [facility] Medical History Hypersomnia Loud snoring Diplopia Annual physical exam Normal Pap smear Hyperlipidemia POTS (postural orthostatic tachycardia syndrome) Migraine Hidradenitis suppurativa HTN (hypertension) MDD (major depressive disorder) Psoriasis IBS (irritable bowel syndrome) Palpitation Type 2 diabetes mellitus Surgical History Hx of cholecystectomy History of liver biopsy Family History Father Diabetes HTN (hypertension) Mother Multiple sclerosis Social History Household Members Other:: Student for respiratory therapy. Two children 11 and 18-year-old Housing: House Alcohol intake: current Alcohol intake frequency: holidays/special occasions only Patient Tobacco Use Status: Former Tobacco user e-Cigarette/Vaping Use: Never Used Current occupational status: unemployed Cognitive needs: No Hearing needs: No Vision needs: No Review of Systems Const All systems reviewed & are unremarkable except as noted in HPI and below Physical Exam Vital Signs: Last Vital Signs Temp 97.9 F 07/18/23 13:19 Pulse 80 07/18/23 13:19 BP 120/90 H 07/18/23 13:19 Pulse Ox 100 07/18/23 13:19 Oxygen Delivery Method Room Air 07/18/23 13:19 Const General: cooperative, healthy appearing, no acute distress, alert, awake, Physically active and well groomed; No anxious, diaphoretic, ill appearing, intoxicated appearing, poor hygiene or tired appearing Orientation/consciousness: oriented to person Limitations: no limitations Resp Effort & Inspection: normal respiratory effort Cardio Rate: regular rate Skin Other: approx 1 cm lesion under the left pendulous breats with bloody dermal tissue visible, no tract visible and no palpable fluctuance. There is some underlying induration/edema that is mild, and no appreciable warmth or erythema. No streaking. No current bleeding or discharge. Neuro General: oriented to person Psych Appearance: grossly normal Mental Status: mental status grossly normal Speech and movement: Normal speech and movement present Affect: normal affect Attitude: cooperative Thought process: Normal thought process present Insight: Good insight present (Psych) Judgement: Good judgement present (Psych) Assessment & Plan Assessment & Plan (1) Hidradenitis suppurativa: Code(s): L73.2 - Hidradenitis suppurativa Plan Patient with hydradenitis suppurativa who has a chronic/1 year abscess that has acutely become painful and with active scant serosanguinous discharge as of the last few days. She has no systemic infection symptoms. The lesion does not look cellulitic but as she has acute symptoms suggestive of possible tunneling of the lesion, I think she needs to return to a package center supervisor or general surgeon if it continues to be aggravated, for surgical excision. She had excision of a few prior abscesses that had tunneled, however she had a change in insurance and needs a new referral. I put a referral in for her through the walk in, as her PCP is also in the [facility] group, however I told her that she might need an appointment for the referral to go through PCP if her insurance requires it. She will call the office early next week to see what the next step should be, and I will send a copy of this visit to her PCP, Dr. Toney. She might also benefit from a soft tissue ultrasound to evaluate this in the meantime, which could be ordered by her PCP. This was not available at the walk in today. We discussed that she will continue to soak the abscess a few times a day, and to keep the area clean, covered and dry otherwise. I also put her on doxycycline- which resolved the initial flare of the abscess for a year, and wrote her for naproxen to help with inflammation and pain. She knows to follow up with the walk in or with her PCP sooner if symptoms persist or worsen, or to go to the emergency department with worrisome symptoms. Orders: Referrals Dermatology Referral L73.2 - Hidradenitis suppurativa Medications: New doxycycline hyclate 100 mg PO BID 10 days 20 caps 0RF naproxen 500 mg PO BID 14 days PRN 28 tabs 0RF pain Coding Level of Care Code Est Pt Level 4 (58509) Diagnoses Hidradenitis suppurativa L73.2
[2023-07-18 13:19] VITALS: BP 120/90; PULSE 80; TEMP 36.6; O2SAT 100
== END 2023-07-18 14:12 | disposition home or self-care (01) ==
PROVIDERS: PCP Internal Medicine; Visit Provider Physician Assistant Medical
DX: L73.2 Hidradenitis suppurativa (principal)
CPT/HCPCS: 99051; 99214

== ENCOUNTER 2023-07-31 13:32 | Outpatient (AMB) | payer OTHER, SELFPAY ==
[2023-07-31 13:40] VITALS: BP 110/66; PULSE 92; O2SAT 98; BMI 32.1
--- NOTE | 2023-07-31 13:40 | A.OFFPC_ITS ---
Vital Signs 07/31/23 13:40 Height 5 ft 6 in Weight 199 lb BMI 32.1 BP 110/66 Blood Pressure Location Lt brachial Position Sitting Pulse 92 Pulse Source Pulse Oximeter Pulse Oximetry (%) 98 Oxygen Delivery Method Room Air Intake Visit Reasons: recurrent cyst on the breast Intake Note: Pt is here today for a sick visit. Pt c/o cyst under her L breast. Pt states that she has one 2 weeks ago. Allergies sulfamethoxazole [From Bactrim] Allergy (Mild, Verified 07/31/23 13:42) RASH trimethoprim [From Bactrim] Allergy (Mild, Verified 07/31/23 13:42) RASH oxycodone Allergy (Unknown, Verified 07/18/23 13:20) hives rash penicillin V Allergy (Unknown, Verified 07/31/23 13:42) hives, rash Sulfa (Sulfonamide Antibiotics) Allergy (Unknown, Verified 07/31/23 13:42) rash amoxicillin [Amoxicillin] Adverse Reaction (Mild, Verified 07/31/23 13:42) CANT FEEL LEGS Adhesive tape Allergy (Unknown, Uncoded 07/31/23 13:42) Rash Bactrim Allergy (Unknown, Uncoded 07/31/23 13:42) Anaphylaxis From PERCOCET Allergy (Unknown, Uncoded 07/31/23 13:42) RASH PCN Allergy (Unknown, Uncoded 07/31/23 13:42) Anaphylaxis Percocet Allergy (Unknown, Uncoded 07/31/23 13:42) Rash Medication List - Last Reconciled 07/31/23 by Linda Toney MD aspirin (Adult Low Dose Aspirin) 162 mg PO DAILY doxycycline hyclate 100 mg PO BID insulin lispro subcut insulin pump cart,cont inf,BT (Omnipod Dash Pods (Gen 4) subcutaneous cartridge) As directed insulin pump cartridge As directed [MuSK antibody levels As directed] naproxen 500 mg PO BID PRN 14 days propranolol ER 160 mg PO DAILY pyridostigmine bromide 30 mg PO TID Tobacco use date assessed: 07/31/23 Dental Screening Dental Screen Date: 07/31/23 Did you have a dental visit in the last 12 months?: Yes Did you have a dental problem in the last 6 months where you did not have access to dental care?: No Was dental information given to patient?: Patient has dentist HPI recurrent cyst on the breast HPI Details Patient presents complaining of recurrent skin cyst on the left breast. She completed a 10 day of doxycycline for skin abscess on the left breast 3 days ago and developed in the area next to original infection skin swelling erythema warmth and tenderness. Patient denies fever chills but reports the whole left breast tender to the touch. Patient A1c was 7.4 and she follows up with endocrinology for insulin-dependent diabetes on insulin pump. [facility] Medical History Hypersomnia Loud snoring Diplopia Annual physical exam Normal Pap smear Hyperlipidemia POTS (postural orthostatic tachycardia syndrome) Migraine Hidradenitis suppurativa HTN (hypertension) MDD (major depressive disorder) Psoriasis IBS (irritable bowel syndrome) Palpitation Type 2 diabetes mellitus Surgical History Hx of cholecystectomy History of liver biopsy Family History Father Diabetes HTN (hypertension) Mother Multiple sclerosis Social History Household Members Other:: Student for respiratory therapy. Two children 11 and 18-year-old Housing: House Alcohol intake: current Alcohol intake frequency: holidays/special occasions only Patient Tobacco Use Status: Former Tobacco user e-Cigarette/Vaping Use: Never Used Current occupational status: unemployed Cognitive needs: No Hearing needs: No Vision needs: No Questionnaire Thrive Questionnaire Date Thrive assessed: 01/21/23 AUDIT C Alcohol Use Questionnaire (AUDIT-C) 1. How often do you have a drink containing alcohol?: Never 3. How often do you have six or more drinks on one occasion?: Never Total Score: 0 Review of Systems Const All systems reviewed & are unremarkable except as noted in HPI and below Eyes Reports no additional complaints ENT Reports no additional complaints Card Reports no additional complaints GI Reports no additional complaints Reports no additional complaints Physical exam (Primary Care) Vital Signs: Last Vital Signs Pulse 92 07/31/23 13:40 BP 110/66 07/31/23 13:40 Pulse Ox 98 07/31/23 13:40 Oxygen Delivery Method Room Air 07/31/23 13:40 BMI result Body Mass Index 32.1 Tobacco/Smoking Status: Tobacco use Status Tobacco use date assessed 07/31/23 07/31/23 13:44 Patient Tobacco Use Status Former Tobacco user 07/31/23 13:44 e-Cigarette/Vaping Use Never Used 07/31/23 13:44 Thrive Assessment: Date of Thrive Assessment Date Thrive assessed 01/21/23 07/31/23 13:44 Const General: no acute distress HENMT Face and sinus: Yes normal facial exam Chest Other: There is an area of 2 x 2 induration erythema and tenderness at 05:00 o'clock area of left breast Resp Effort & Inspection: normal respiratory effort Auscultation: clear to auscultation bilaterally Cardio Rhythm: regular rhythm Heart sounds: S1 normal heart sound present and S2 normal heart sound present Assessment and Plan Assessment & Plan (1) Breast abscess: Code(s): N61.1 - Abscess of the breast and nipple Plan: For recurrent breast abscess doxycycline for 2 weeks is prescribed and patient will be referred to breast surgeon for evaluation. (2) Type 2 diabetes mellitus: Comment: IDDM , Dr. Boland, on Insulin pump,last A1C 8.6 09/2020 Code(s): E11.9 - Type 2 diabetes mellitus without complications Plan: Patient follows up with endocrinology Orders: Referrals Breast Surgery Referral N61.1 - Abscess of the breast and nipple Medications: Changed From doxycycline hyclate 100 mg PO BID 10 days 28 caps 0RF To doxycycline hyclate 100 mg PO BID 28 caps 0RF Refilled doxycycline hyclate 100 mg PO BID 10 days 28 caps 0RF Coding Level of Care Code Est Pt Level 3 (96919) Diagnoses Breast abscess N61.1 Type 2 diabetes mellitus E11.9
== END 2023-07-31 14:04 | disposition home or self-care (01) ==
PROVIDERS: PCP Internal Medicine; Visit Provider Internal Medicine
DX: N61.1 Abscess of the breast and nipple (principal); E11.9 Type 2 diabetes mellitus without complications
CPT/HCPCS: 99213

== ENCOUNTER 2023-09-14 11:48 | Outpatient (AMB) | payer OTHER, SELFPAY ==
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
[2023-09-14 12:23] VITALS: BP 130/80; PULSE 104; O2SAT 98
== END 2023-09-14 15:19 | disposition home or self-care (01) ==
PROVIDERS: PCP Internal Medicine; Visit Provider Internal Medicine
DX: S13.9XXA Sprain of joints and ligaments of unspecified parts of neck, initial encounter (principal)
CPT/HCPCS: 99213

== ENCOUNTER 2023-11-12 14:46 | Outpatient (AMB) | payer OTHER, SELFPAY ==
--- NOTE | 2023-11-12 14:52 | A.OFFVIS_ITS ---
Vital Signs 11/12/23 15:13 Height 5 ft 6 in Weight 194 lb 0.108 oz BMI 31.3 BP 108/60 Blood Pressure Location Rt brachial Position Sitting Pulse 88 Intake Visit Reasons: 2 year follow up NS Intake Note: 2 year follow-up with ekg feeling good It Sales Representative Required: No Allergies sulfamethoxazole [From Bactrim] Allergy (Mild, Verified 09/14/23 12:50) RASH trimethoprim [From Bactrim] Allergy (Mild, Verified 09/14/23 12:50) RASH oxycodone Allergy (Unknown, Verified 09/14/23 12:50) hives rash penicillin V Allergy (Unknown, Verified 09/14/23 12:50) hives, rash Sulfa (Sulfonamide Antibiotics) Allergy (Unknown, Verified 09/14/23 12:50) rash amoxicillin [Amoxicillin] Adverse Reaction (Mild, Verified 09/14/23 12:50) CANT FEEL LEGS Adhesive tape Allergy (Unknown, Uncoded 09/14/23 12:50) Rash Bactrim Allergy (Unknown, Uncoded 09/14/23 12:50) Anaphylaxis From PERCOCET Allergy (Unknown, Uncoded 09/14/23 12:50) RASH PCN Allergy (Unknown, Uncoded 09/14/23 12:50) Anaphylaxis Percocet Allergy (Unknown, Uncoded 09/14/23 12:50) Rash Medication List - Last Reconciled 11/12/23 by Morgan Maxwell MD aspirin (Adult Low Dose Aspirin) 162 mg PO DAILY cyclobenzaprine 10 mg PO BEDTIME doxycycline hyclate 100 mg PO BID insulin lispro subcut insulin pump cart,cont inf,BT (Omnipod Dash Pods (Gen 4) subcutaneous cartridge) As directed insulin pump cartridge As directed meloxicam 15 mg PO DAILY [MuSK antibody levels As directed] naproxen 500 mg PO BID PRN 14 days norethindrone (contraceptive) 0.35 mg PO DAILY propranolol ER 160 mg PO DAILY pyridostigmine bromide 30 mg PO TID spironolactone 100 mg PO DAILY HPI Comments Details: Ebony comes for follow-up. She is done very well from cardiac perspective. Denies any symptoms of lightheadedness. Denies any symptoms of rapid heart rate. Maintains adequate hydration. Takes all her medications. [facility] Medical History Hypersomnia Loud snoring Diplopia Annual physical exam Normal Pap smear Hyperlipidemia POTS (postural orthostatic tachycardia syndrome) Migraine Hidradenitis suppurativa HTN (hypertension) MDD (major depressive disorder) Psoriasis IBS (irritable bowel syndrome) Palpitation Type 2 diabetes mellitus Surgical History Hx of cholecystectomy History of liver biopsy Family History Father Diabetes HTN (hypertension) Mother Multiple sclerosis Social History Household Members Other:: Student for respiratory therapy. Two children 11 and 18-year-old Housing: House Alcohol intake: current Alcohol intake frequency: holidays/special occasions only Patient Tobacco Use Status: Former Tobacco user e-Cigarette/Vaping Use: Never Used Current occupational status: unemployed Cognitive needs: No Hearing needs: No Vision needs: No Review of Systems Const Denies chills, Denies fatigue, Denies fever(s), Denies frequent falls, Denies weakness, Denies weight gain and Denies weight loss ENT Denies dizziness Card Denies chest pain, Denies leg edema, Denies lightheadedness, Denies palpitations, Denies dyspnea, Denies dyspnea on exertion, Denies orthopnea and Denies other (loss of consciousness) Resp Denies cough, Denies dyspnea and Denies dyspnea on exertion GI Denies hematochezia and Denies change in stool character Musc Denies abnormal gait, Denies muscle weakness, Denies numbness, Denies radiating pain into limb and Denies tingling Neuro Denies abnormal gait, Denies dizziness, Denies frequent falls, Denies numbness, Denies tingling and Denies weakness Endo Denies fatigue and Denies palpitations Physical Exam Vital Signs: Last Vital Signs Pulse 88 11/12/23 15:13 BP 108/60 11/12/23 15:13 BMI result Body Mass Index 31.3 Const General: cooperative, comfortable, no acute distress, alert and awake Nutritional Appearance: obese Orientation/consciousness: patient oriented x3 Limitations: no limitations Neck Neck: Yes trachea midline, Yes supple and Yes no JVD Chest Chest palpation & inspection: normal inspection of the chest Resp Effort & Inspection: normal respiratory effort Auscultation: clear to auscultation bilaterally Cardio Jugular venous distension: no JVD Palpation: normal PMI Rate: regular rate Rhythm: regular rhythm Heart sounds: S1 normal heart sound present, S2 normal heart sound present, no click, no gallops, no murmurs and no rubs GI Auscultation: normal bowel sounds Skin General skin exam: no rashes or lesions noted Neuro General: patient oriented x3 and no focal motor deficits Extrem General: Yes no clubbing, cyanosis or edema Psych Appearance: grossly normal Office Procedures EKG Details: EKG shows normal sinus rhythm with normal EKG at 88 beats per minute [id number], Complete Assessment & Plan Assessment & Plan (1) POTS (postural orthostatic tachycardia syndrome): Comment: f/u Dr. Maxwell Code(s): I49.8 - Other specified cardiac arrhythmias Category: Medical Plan: Patient with prior history of POTS which is not well controlled on current medical therapy. Mechanism of POTS was discussed. She is done well with current nonselective beta-clarissa with propranolol on increase hydration. Dione nue the same. No other change in therapy. Orthostatic precautions were discussed. Stress mitigation strategies to be avoided. Will follow up in the clinic if need be. Thank you for allowing me to partake in his Coding Level of Care Code Est Pt Level 3 (08219) Diagnoses POTS (postural orthostatic tachycardia syndrome) I49.8 CPT Codes EKG - CPT: 06455-[id number], Complete ([id number])
[2023-11-12 15:13] VITALS: BP 108/60; PULSE 88; BMI 31.3
== END 2023-11-12 15:16 | disposition home or self-care (01) ==
PROVIDERS: PCP Internal Medicine; Visit Provider Internal Medicine Cardiovascular Disease
DX: I49.8 Other specified cardiac arrhythmias (principal)
CPT/HCPCS: 93010; 99213

== ENCOUNTER → 2023-11-12 14:46 | Outpatient (BNVA) | payer OTHER, SELFPAY | PROVIDERS: PCP Internal Medicine; Visit Provider Internal Medicine Cardiovascular Disease | DX: I49.8 Other specified cardiac arrhythmias (principal) | CPT/HCPCS: 93005; 99212 ==

== ENCOUNTER 2023-11-27 08:04 | Outpatient (AMB) | payer OTHER, SELFPAY ==
--- NOTE | 2023-11-27 08:06 | MHC.OFFWIV ---
Intake Vital Signs 11/27/23 08:07 Height 5 ft 6 in BP 120/80 Blood Pressure Location Rt brachial Position Sitting Pulse 97 Pulse Source Pulse Oximeter Temp 98.2 F Temp Source Oral Pulse Oximetry (%) 100 Oxygen Delivery Method Room Air Intake Visit Reasons: EP shortness of breath cough Intake Note: pt is here for shortness of breath with cough Patient Tobacco Use Status: Former Tobacco user Allergies sulfamethoxazole [From Bactrim] Allergy (Mild, Verified 11/27/23 08:07) RASH trimethoprim [From Bactrim] Allergy (Mild, Verified 11/27/23 08:07) RASH oxycodone Allergy (Unknown, Verified 11/27/23 08:07) hives rash penicillin V Allergy (Unknown, Verified 11/27/23 08:07) hives, rash Sulfa (Sulfonamide Antibiotics) Allergy (Unknown, Verified 11/27/23 08:07) rash amoxicillin [Amoxicillin] Adverse Reaction (Mild, Verified 11/27/23 08:07) CANT FEEL LEGS Adhesive tape Allergy (Unknown, Uncoded 09/14/23 12:50) Rash Bactrim Allergy (Unknown, Uncoded 09/14/23 12:50) Anaphylaxis From PERCOCET Allergy (Unknown, Uncoded 09/14/23 12:50) RASH PCN Allergy (Unknown, Uncoded 09/14/23 12:50) Anaphylaxis Percocet Allergy (Unknown, Uncoded 09/14/23 12:50) Rash Do you need a note to return to daycare/school/sports/work: Yes HPI HPI Comments History of Present Illness Details 38 y/o female patient who presents to walk in clinic with c/o cough and SOB for few days now. Denies any Asthma or COPD history. [facility], [facility] Medical History Hypersomnia Loud snoring Diplopia Annual physical exam Normal Pap smear Hyperlipidemia POTS (postural orthostatic tachycardia syndrome) Migraine Hidradenitis suppurativa HTN (hypertension) MDD (major depressive disorder) Psoriasis IBS (irritable bowel syndrome) Palpitation Type 2 diabetes mellitus Surgical History Hx of cholecystectomy History of liver biopsy Family History Father Diabetes HTN (hypertension) Mother Multiple sclerosis Social History Household Members Other:: Student for respiratory therapy. Two children 11 and 18-year-old Housing: House Alcohol intake: current Alcohol intake frequency: holidays/special occasions only Patient Tobacco Use Status: Former Tobacco user e-Cigarette/Vaping Use: Never Used Current occupational status: unemployed Cognitive needs: No Hearing needs: No Vision needs: No Review of Systems Const All systems reviewed & are unremarkable except as noted in HPI and below Physical Exam Vital Signs: Last Vital Signs Temp 98.2 F 11/27/23 08:07 Pulse 97 11/27/23 08:07 BP 120/80 11/27/23 08:07 Pulse Ox 100 11/27/23 08:07 Oxygen Delivery Method Room Air 11/27/23 08:07 Const General: comfortable and no acute distress Nutritional Appearance: obese Orientation/consciousness: patient oriented x3 HEENT Head: Yes normocephalic Ears: external ears normal and TM's normal bilaterally General nose exam: Normal nasal mucous membranes and turbinates present Face and sinus: Yes sinuses nontender Mouth: moist mucous membranes Throat: Yes postnasal drainage Resp Effort & Inspection: normal respiratory effort and able to speak in complete sentences Auscultation: clear to auscultation bilaterally, no crackles, no rales, no rhonchi and no wheezes Cardio Rate: regular rate Rhythm: regular rhythm Neuro General: patient oriented x3, gait normal and moves all extremities Psych Speech and movement: Normal speech and movement present Assessment & Plan Assessment & Plan (1) Cough in adult: Code(s): R05.9 - Cough, unspecified Plan: - OTC cough remedies - Warm fluids with honey - Rest Medications: New benzonatate 100 mg PO TID 30 caps 0RF R05.9 - Cough, unspecified loratadine (Claritin) 10 mg PO DAILY 30 tabs 0RF R05.9 - Cough, unspecified Coding Level of Care Code Est Pt Level 3 (16084) Diagnoses Cough in adult R05.9 Time Spent (min) 15
[2023-11-27 08:07] VITALS: BP 120/80; PULSE 97; TEMP 36.8; O2SAT 100
== END 2023-11-27 09:06 | disposition home or self-care (01) ==
PROVIDERS: PCP Internal Medicine; Visit Provider Nurse Practitioner Family
DX: R05.9 Cough, unspecified (principal)
CPT/HCPCS: 99213

== ENCOUNTER 2024-01-13 13:54 | Outpatient (AMB) | payer OTHER, SELFPAY ==
--- NOTE | 2024-01-13 14:22 | MHC.OFFVIS ---
Vital Signs 01/13/24 14:23 Height 5 ft 6 in Weight 202 lb BMI 32.6 BP 112/62 Blood Pressure Location Rt brachial Position Sitting Respiration 16 Pulse 89 Pulse Source Pulse Oximeter Pulse Oximetry (%) 99 Oxygen Delivery Method Room Air Intake Visit Reasons: follow up Ptosis of left eyelid - Confirmed Intake Note: Pt presents for a 7 month follow up for diplopia. 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 Allergies sulfamethoxazole [From Bactrim] Allergy (Mild, Verified 01/13/24 14:23) RASH trimethoprim [From Bactrim] Allergy (Mild, Verified 01/13/24 14:23) RASH oxycodone Allergy (Unknown, Verified 01/13/24 14:23) hives rash penicillin V Allergy (Unknown, Verified 01/13/24 14:23) hives, rash Sulfa (Sulfonamide Antibiotics) Allergy (Unknown, Verified 01/13/24 14:23) rash amoxicillin [Amoxicillin] Adverse Reaction (Mild, Verified 01/13/24 14:23) CANT FEEL LEGS Adhesive tape Allergy (Unknown, Uncoded 01/13/24 14:23) Rash Bactrim Allergy (Unknown, Uncoded 01/13/24 14:23) Anaphylaxis From PERCOCET Allergy (Unknown, Uncoded 01/13/24 14:23) RASH PCN Allergy (Unknown, Uncoded 01/13/24 14:23) Anaphylaxis Percocet Allergy (Unknown, Uncoded 01/13/24 14:23) Rash Medication List - Last Reconciled 01/13/24 by Antonia Rock MD aspirin (Adult Low Dose Aspirin) 162 mg PO DAILY benzonatate 100 mg PO TID cyclobenzaprine 10 mg PO BEDTIME insulin lispro subcut insulin pump cart,cont inf,BT (Omnipod Dash Pods (Gen 4) subcutaneous cartridge) As directed insulin pump cartridge As directed loratadine (Claritin) 10 mg PO DAILY [MuSK antibody levels As directed] norethindrone (contraceptive) 0.35 mg PO DAILY propranolol ER 160 mg PO DAILY pyridostigmine bromide 30 mg PO TID spironolactone 100 mg PO DAILY HPI Comments Details: 38y/o female comes for follow up of left eyelid drooping . Her MRI MRA brain were normal. she started noticing droopy left eye about 18 months ago . she also has double vision on and off . It is worse with bright light.she denies pain. she has h/o diabetes - over 20 years , has insulin pump she denies head injury or headaches. she had carotid doppler last week which showed minimal disease on the right. she denies numbness or tingling in her face. Denies speech problems, denies vertigo , tongue numbness or dysphagia. she has loud snoring with frequent arousals and daytime sleepiness- sleep study was normal [facility] Medical History Hypersomnia Loud snoring Diplopia Annual physical exam Normal Pap smear Hyperlipidemia POTS (postural orthostatic tachycardia syndrome) Migraine Hidradenitis suppurativa HTN (hypertension) MDD (major depressive disorder) Psoriasis IBS (irritable bowel syndrome) Palpitation Type 2 diabetes mellitus Surgical History Hx of cholecystectomy History of liver biopsy Family History Father Diabetes HTN (hypertension) Mother Multiple sclerosis Social History Household Members Other:: Student for respiratory therapy. Two children 11 and 18-year-old Housing: House Alcohol intake: current Alcohol intake frequency: holidays/special occasions only Patient Tobacco Use Status: Former Tobacco user e-Cigarette/Vaping Use: Never Used Current occupational status: unemployed Cognitive needs: No Hearing needs: No Vision needs: No Physical Exam Vital Signs: Last Vital Signs Pulse 89 01/13/24 14:23 Resp 16 01/13/24 14:23 BP 112/62 01/13/24 14:23 Pulse Ox 99 01/13/24 14:23 Oxygen Delivery Method Room Air 01/13/24 14:23 BMI result Body Mass Index 32.6 Const General: cooperative, healthy appearing and comfortable Nutritional Appearance: overweight Orientation/consciousness: patient oriented x3 Eyes Pupils: Equal, round and reactive pupils present Neck Neck: Yes no meningeal signs Neuro Other: left eye partial ptosis, no diplopia , no nystagmus General: patient oriented x3, no meningeal signs and no focal motor deficits Cranial nerves: Yes Facial sensation intact/muscles of mastication intact, Yes Equal, round and reactive pupils present, Yes Bilaterally intact EOM present, Yes Nystagmus not present and Yes Normal facial strength present Cognition (Neuro): normal cognition Gait exam (Neuro): Normal gait present Motor exam (neuro): 5/5 motor strength present throughout, Normal motor muscle tone present throughout and Motor abnormalities not present Coordination: [id number] test normal and [id number] test normal Pupils: Normal pupillary reactivity/response: right and left Psych Appearance: grossly normal Assessment & Plan Assessment & Plan (1) Ptosis of eyelid, left: Comment: ? 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 she did not trial pyridostigmine diabetes might be contributing to 3 rd nerve paresis. Her recent Hag A 1 C is 7.9. discussed about good diabetes control Discussed about monitoring and will follow up if she worsens Snoring- suggested breath easy or breath right nasal strips . Orders: Orders MuSK Antibody Today H02.402 - Unspecified ptosis of left eyelid, H53.2 - Diplopia Coding Level of Care Code Est Pt Level 4 (37405) Diagnoses Ptosis of eyelid, left H02.402 Diplopia H53.2
[2024-01-13 14:23] VITALS: BP 112/62; PULSE 89; RESP 16; O2SAT 99; BMI 32.6
== END 2024-01-13 14:39 | disposition home or self-care (01) ==
PROVIDERS: PCP Internal Medicine; Visit Provider Psychiatry & Neurology Neurology
DX: H02.402 Unspecified ptosis of left eyelid (principal); H53.2 Diplopia
CPT/HCPCS: 99214

== ENCOUNTER → 2024-01-13 13:54 | Outpatient (BNVA) | payer OTHER, SELFPAY | PROVIDERS: PCP Internal Medicine; Visit Provider Psychiatry & Neurology Neurology | DX: H02.402 Unspecified ptosis of left eyelid (principal); H53.2 Diplopia | CPT/HCPCS: 99212 ==

== ENCOUNTER 2024-01-13 14:42 | Outpatient (REF) | payer OTHER, SELFPAY ==
[2024-01-19 16:08] LABS: Acetylcholine Receptor Binding <0.30 nmol/L
[2024-01-22 16:58] LABS: Acetylcholine Recep Modulating <1
[2024-01-26 18:34] LABS: Acetylcholine Recept. Blocking <15 (<15)
== END 2024-01-13 14:43 | disposition home or self-care (01) ==
LOC: HO.HKASLDS 14:42
PROVIDERS: Visit Provider Psychiatry & Neurology Neurology
DX: H53.2 Diplopia (principal); H02.402 Unspecified ptosis of left eyelid
CPT/HCPCS: 36415; 86041; 86042; 86043; 86366

== ENCOUNTER 2024-02-17 09:15 | Outpatient (REF) | payer OTHER, SELFPAY ==
[2024-02-17 10:30] LABS: MANUAL DIFF FLAG NO
[2024-02-17 10:36] LABS: Basophils Absolute Auto 0.1 X10*3/uL (0.0-0.2); Basophils Percent Auto 0.5 % (0-2); Eosinophils Absolute Auto 0.3 X10*3/uL (0.0-0.4); Eosinophils Percent Auto 2.7 % (0-4); Hematocrit 36.7 % (37.0-47.0); Hemoglobin 12.6 g/dl (12.0-16.0); Imm Gran Abs Auto 0.06 X10*3/uL (0.00-0.03); Imm Gran Pct Auto 0.6 % (0.0-0.4); Lymphocytes Absolute Auto 3.4 X10*3/uL (1.2-4.9); Lymphocytes Percent Auto 35.3 % (20-40); Mean Corpuscular HGB Conc 34.3 g/dl (31.0-35.0); Mean Corpuscular Hemoglobin 30.7 pg (27.0-33.0); Mean Corpuscular Volume 89.5 fL (80.0-98.0); Mean Platelet Volume 12.2 fL (9.4-12.3); Monocytes Absolute Auto 0.8 X10*3/uL (0.1-1.2); Neutrophils Absolute Auto 5.1 x10*3/uL (2.0-8.3); Neutrophils Percent Auto 52.9 % (45-73); Platelet Count 302 X10*3/uL (160-400); White Blood Count 9.7 X10*3/uL (4.8-10.8)
[2024-02-17 10:55] LABS: Alanine Aminotransferase 23 U/L (0-31); Albumin Level 3.7 g/dL (3.5-5.0); Alkaline Phosphatase 76 U/L (39-117); Anion Gap 13 (12-20); Aspartate Amino Transferase 22 U/L (5-31); Bilirubin Total 0.4 mg/dL (0.0-1.0); Blood Urea Nitrogen 11 mg/dL (9-16); Calcium 9.3 mg/dL (8.4-10.2); Carbon Dioxide 24 mmol/L (22-29); Chloride 104 mmol/L (96-108); Cholesterol 161 mg/dL (<200); Estimated Glomerular Filt Rate > 60; Glucose Fasting 107 mg/dL (60-99); HDL Cholesterol 38 mg/dL (>40); LDL Cholesterol Calculated 99 mg/dL (<100); Potassium 3.7 mmol/L (3.3-5.1); Sodium 137 mmol/L (135-145); Total Protein 7.3 g/dL (6.5-8.0); Triglycerides 122 mg/dL (<150)
[2024-02-17 11:02] LABS: Estimated Average Glucose 154 mg/dL
[2024-02-17 11:13] LABS: TSH reflex Free T4 1.25 uIU/mL (0.32-4.0); Vitamin D 25-OH Total 39.2 ng/mL (>30)
== END 2024-02-17 09:16 | disposition home or self-care (01) ==
LOC: HO.HMGCLDS 09:15
PROVIDERS: PCP Internal Medicine; Visit Provider Internal Medicine
DX: Z00.00 Encounter for general adult medical examination without abnormal findings (principal); E78.5 Hyperlipidemia, unspecified; E11.9 Type 2 diabetes mellitus without complications; I49.8 Other specified cardiac arrhythmias
CPT/HCPCS: 36415; 80053; 80061; 82306; 83036; 84443; 85025

== ENCOUNTER 2024-02-23 08:45 | Outpatient (AMB) | payer OTHER, SELFPAY ==
[2024-02-23 08:46] VITALS: BP 122/80; PULSE 83; O2SAT 97; BMI 32.8
--- NOTE | 2024-02-23 08:46 | MHC.PC.OV ---
Vital Signs 02/23/24 08:46 Height 5 ft 6 in Weight 203 lb BMI 32.8 BP 122/80 Blood Pressure Location Lt brachial Position Sitting Pulse 83 Pulse Source Pulse Oximeter Pulse Oximetry (%) 97 Oxygen Delivery Method Room Air Intake Visit Reasons: PE- NEEDS PHQ9 + A1C Intake Note: Pt is here today for PE. Allergies sulfamethoxazole [From Bactrim] Allergy (Mild, Verified 02/23/24 08:50) RASH trimethoprim [From Bactrim] Allergy (Mild, Verified 02/23/24 08:50) RASH oxycodone Allergy (Unknown, Verified 02/23/24 08:50) hives rash penicillin V Allergy (Unknown, Verified 02/23/24 08:50) hives, rash Sulfa (Sulfonamide Antibiotics) Allergy (Unknown, Verified 02/23/24 08:50) rash amoxicillin [Amoxicillin] Adverse Reaction (Mild, Verified 02/23/24 08:50) CANT FEEL LEGS Adhesive tape Allergy (Unknown, Uncoded 02/23/24 08:50) Rash Bactrim Allergy (Unknown, Uncoded 02/23/24 08:50) Anaphylaxis From PERCOCET Allergy (Unknown, Uncoded 02/23/24 08:50) RASH PCN Allergy (Unknown, Uncoded 02/23/24 08:50) Anaphylaxis Percocet Allergy (Unknown, Uncoded 02/23/24 08:50) Rash Medication List - Last Reconciled 02/23/24 by Linda Toney MD aspirin (Adult Low Dose Aspirin) 162 mg PO DAILY insulin lispro subcut insulin pump cart,cont inf,BT (Omnipod Dash Pods (Gen 4) subcutaneous cartridge) As directed insulin pump cartridge As directed loratadine (Claritin) 10 mg PO DAILY [MuSK antibody levels As directed] norethindrone (contraceptive) 0.35 mg PO DAILY propranolol ER 160 mg PO DAILY pyridostigmine bromide 30 mg PO TID spironolactone 100 mg PO DAILY Tobacco use date assessed: 02/23/24 Dental Screening Dental Screen Date: 02/23/24 Did you have a dental visit in the last 12 months?: Yes Did you have a dental problem in the last 6 months where you did not have access to dental care?: No Was dental information given to patient?: Patient has dentist HPI PE- NEEDS PHQ9 + A1C HPI Details Pt presents for PE. PFSH Medical History (Updated 02/23/24 @ 11:57 by Linda Toney MD) Hypersomnia Loud snoring Diplopia Annual physical exam Normal Pap smear Hyperlipidemia POTS (postural orthostatic tachycardia syndrome) Migraine Hidradenitis suppurativa HTN (hypertension) MDD (major depressive disorder) Psoriasis IBS (irritable bowel syndrome) Palpitation Type 2 diabetes mellitus Surgical History Hx of cholecystectomy History of liver biopsy Family History Father Diabetes HTN (hypertension) Mother Multiple sclerosis Social History Household Members Other:: Student for respiratory therapy. Two children 11 and 18-year-old Housing: House Alcohol intake: current Alcohol intake frequency: holidays/special occasions only Patient Tobacco Use Status: Former Tobacco user e-Cigarette/Vaping Use: Never Used service: No Current occupational status: unemployed Cognitive needs: No Hearing needs: No Vision needs: No Questionnaire PHQ-9 Over the last 2 weeks, how often have you been bothered by any of the following problems? 1. Little interest or pleasure in doing things: more than half the days 2. Feeling down, depressed, or hopeless: more than half the days 3. Trouble falling or staying asleep, or sleeping too much: more than half the days 4. Feeling tired or having little energy: more than half the days 5. Poor appetite or overeating: more than half the days 6. Feeling bad about yourself - or that you are a failure or have let yourself or your family down: not at all 7. Trouble concentrating on things, such as reading the newspaper or watching television: not at all 8. Moving or speaking so slowly that other people could have noticed. Or the opposite - being so fidgety or restless that you have been moving around a lot more than usual: not at all 9. Thoughts that you would be better off or of hurting yourself in some way: not at all Total score: 10 Depression Screening Interpretation: Positive (Patient is established with therapist) Depression Screening Follow-up: Existing condition and In treatment Depression Screening Done: Yes 26779 - PHQ-9 Billing: Yes Source: Developed by Drs. Arun Raphael, Galina Gil, Ang Smiley and colleagues, with an educational sharon from [employer]. Thrive Questionnaire Date Thrive assessed: 02/23/24 I am a: Patient What is your living situation today?: I have a steady place to live Within the past 12 months, did the food you bought not last and you didn't have the money to get more?: Never true Within the past 12 months, did you worry whether your food would run out before you got money to buy more?: Never true Do you have trouble paying for medicines?: No Do you have trouble getting transportation to medical appointments?: No Do you have trouble paying your heating and electricity bill?: No Do you have trouble taking care of your child, family member or friend?: No Do you have trouble with day-to-day activities such as bathing, preparing meals, shopping, managing finances, etc.?: No Are you currently unemployed and looking for a job?: No Are you interested in more education?: No Please select the resources that you would like help with: None Currently or been in a relationship where the following occur: No concerns reported THRIVE Score: 0 AUDIT C Alcohol Use Questionnaire (AUDIT-C) 1. How often do you have a drink containing alcohol?: Monthly or less 2. How many drinks containing alcohol do you have on a typical day when you are drinking?: 1 or 2 3. How often do you have six or more drinks on one occasion?: Less than monthly Total Score: 2 ROHIT-7 AMB Questionnaire ROHIT-7 Date ROHIT - 7 assessed: 02/23/24 Feeling nervous, anxious, or on edge: 0 = Not at all Not being able to stop or control worryin = Not at all Worrying too much about different things: 0 = Not at all Trouble relaxin = Not at all Being so restless that it is hard to sit still: 0 = Not at all Becoming easily annoyed or irritable: 0 = Not at all Feeling afraid as if something awful might happen: 0 = Not at all Total ROHIT-7 score (0-4 normal; 5-9 mild; 10-14 moderate; 15-21 severe): 0 Source: Developed by Galina MolinaW. Jeffery, Ang Smiley and colleagues, with an educational sharon from [employer]. ROHIT-7 Assessment Billing ROHIT-7 Assessment Tool: ROHIT-7 Assessment 85770 Review of Systems Const All systems reviewed & are unremarkable except as noted in HPI and below Eyes Reports no additional complaints ENT Reports no additional complaints Card Reports no additional complaints Resp Reports no additional complaints GI Reports no additional complaints Reports no additional complaints Physical exam (Primary Care) Vital Signs: Last Vital Signs Pulse 83 02/23/24 08:46 BP 122/80 02/23/24 08:46 Pulse Ox 97 02/23/24 08:46 Oxygen Delivery Method Room Air 02/23/24 08:46 BMI result Body Mass Index 32.8 Tobacco/Smoking Status: Tobacco use Status Tobacco use date assessed 02/23/24 02/23/24 08:54 Patient Tobacco Use Status Former Tobacco user 02/23/24 08:47 e-Cigarette/Vaping Use Never Used 02/23/24 08:47 PHQ-9: PHQ-9 Score PHQ-9: Total score 10 02/23/24 09:28 Depression Screening Interpretation: Positive (Patient is established with therapist) Depression Screening Follow-up: Existing condition and In treatment Thrive Assessment: Date of Thrive Assessment Date Thrive assessed 02/23/24 02/23/24 08:47 Currently or been in a relationship where the following occur: No concerns reported Const General: no acute distress HENMT Head: Yes normal to inspection Ears: TM's normal bilaterally Face and sinus: Yes normal facial exam Mouth: Normal oral and palatal mucosa present Throat: Yes posterior oropharynx normal Neck Neck: Yes no lymphadenopathy and Yes supple Resp Effort & Inspection: normal respiratory effort Auscultation: clear to auscultation bilaterally Cardio Rhythm: regular rhythm Heart sounds: S1 normal heart sound present and S2 normal heart sound present GI Inspection: Yes normal to inspection Palpation (GI): Soft to palpation Percussion: Yes normal to percussion Auscultation: normal bowel sounds Extrem General: Yes no clubbing, cyanosis or edema Assessment and Plan Assessment & Plan (1) Anemia: Code(s): D64.9 - Anemia, unspecified Plan: check CBC, Iron and vit B12 (2) Annual physical exam: Code(s): Z00.00 - Encounter for general adult medical examination without abnormal findings Plan: Well-balanced diet regular physical activity discussed with the patient. She is up-to-date with the Pap smear by biosolids management technician (3) Normal Pap smear: Comment: By biosolids management technician (4) Type 2 diabetes mellitus: Comment: IDDM , Dr. Boland, on Insulin pump,last A1C 8.6 09/2020 Code(s): E11.9 - Type 2 diabetes mellitus without complications Plan: A1c is 7.0, ADA diet regular physical activity discussed with the patient she follows up with endocrinology (5) POTS (postural orthostatic tachycardia syndrome): Comment: f/u Dr. Maxwell Code(s): I49.8 - Other specified cardiac arrhythmias Plan: Follow-up with cardiology, cont propranolol (6) Diplopia: Comment: f/u with neurology Code(s): H53.2 - Diplopia Orders: Orders IRON PROFILE 1 Month D64.9 - Anemia, unspecified Hemoglobin A1c 1 Year E11.9 - Type 2 diabetes mellitus without complications, E78.5 - Hyperlipidemia, unspecified, I49.8 - Other specified cardiac arrhythmias, Z00.00 - Encounter for general adult medical examination without abnormal findings Complete Blood Count Auto Diff 1 Year E11.9 - Type 2 diabetes mellitus without complications, E78.5 - Hyperlipidemia, unspecified, I49.8 - Other specified cardiac arrhythmias, Z00.00 - Encounter for general adult medical examination without abnormal findings Lipid Panel 1 Year E11.9 - Type 2 diabetes mellitus without complications, E78.5 - Hyperlipidemia, unspecified, I49.8 - Other specified cardiac arrhythmias, Z00.00 - Encounter for general adult medical examination without abnormal findings TSH reflex Free T4 1 Year E11.9 - Type 2 diabetes mellitus without complications, E78.5 - Hyperlipidemia, unspecified, I49.8 - Other specified cardiac arrhythmias, Z00.00 - Encounter for general adult medical examination without abnormal findings Complete Blood Count Auto Diff 1 Month D64.9 - Anemia, unspecified Vitamin B12 and Folate 1 Month D64.9 - Anemia, unspecified Comprehensive [place]. Panel Fast 1 Year E11.9 - Type 2 diabetes mellitus without complications, E78.5 - Hyperlipidemia, unspecified, I49.8 - Other specified cardiac arrhythmias, Z00.00 - Encounter for general adult medical examination without abnormal findings Microalbumin, Random (w Creat) 1 Year E11.9 - Type 2 diabetes mellitus without complications, E78.5 - Hyperlipidemia, unspecified, I49.8 - Other specified cardiac arrhythmias, Z00.00 - Encounter for general adult medical examination without abnormal findings Coding Level of Care Code Est Pt Prev Care 40-64y(52553) Diagnoses Anemia D64.9 Annual physical exam Z00.00 Normal Pap smear Z12.4 Type 2 diabetes mellitus E11.9 POTS (postural orthostatic tachycardia syndrome) I49.8 Diplopia H53.2 Additional Codes ROHIT-7 Assessment Billing - ROHIT-7 Assessment Tool: ROHIT-7 Assessment [id number] ([id number])
== END 2024-02-23 09:40 | disposition home or self-care (01) ==
PROVIDERS: PCP Internal Medicine; Visit Provider Internal Medicine
DX: Z00.00 Encounter for general adult medical examination without abnormal findings (principal); E11.9 Type 2 diabetes mellitus without complications; D64.9 Anemia, unspecified; I49.8 Other specified cardiac arrhythmias; H53.2 Diplopia
CPT/HCPCS: 99396

== ENCOUNTER 2024-10-19 09:47 | Outpatient (REF) | payer OTHER, SELFPAY ==
--- OUTSIDE RECORDS SUMMARY | 2024-10-19 12:27 | XMS_ITS | Referral Summary ---
Author Organization [facility] Address [address] [place] [address] Care Team Providers Care Keypunch Operator Name Role Phone Linda Toney Primary Care Provider [phone] Encounters Date Type Department Care Team Description 09/29/2024 Telephone [facility] 4th [address] [place] [phone] Fruit Or Nut Crops Farm Manager: Gabriela Garcia MD 09/29/2024 3:00 PM EDT Office Visit [facility] 4th Floor [address] [place] [phone] Fruit Or Nut Crops Farm Manager: Kelsy Castro MD Hidradenitis suppurativa (Primary Dx) 09/15/2024 Telephone [facility] 4th Floor [address] [place] [phone] Fruit Or Nut Cro[employer] Farm Manager: Jazmine Baum MD 09/08/2024 2:00 PM EST Infusion [facility]fusion [facility] [address] [place] [address] Kelsy Gibson MD Johnson, Jennifer A, RN Hidradenitis suppurativa (Primary Dx) 09/06/2024 Orders Only [facility] [address] [place] [address] Reba Leija, PharmD 08/03/2024 Refill [facility] 2nd Floor [address] [facility], [place] [address] Fruit Or Nut Crops Farm Manager: Shonda No LPN Hidradenitis suppurativa (Primary Dx) 07/28/2024 myChart Message [facility] 4th Floor [address] [facility], Fourth [place] [phone] Fruit Or Nut Crops Farm Manager: Kelsy Castro MD Dfmla 07/28/2024 1:00 PM EST Infusion [facility] Infusion Clinic [address] [place] [address] Kelsy Gibson MD Charter, Isabel, RN Hidradenitis [...] Daily 03/17/2024 Active blood-glucose meter,continuous (Dexcom G7 Dinkey Press Operator) misc by Other route once daily as [...] Dx 07/2022 followed by retina specialist in [place]. Left eye ptosis and intermittent double vision since 2022-followed by Dr. Rock at [facility] neuro. Right carotid stenosis. Resolved Problems Problem [...] Info) Description 10/20/2024 2:00 PM EDT Infusion [facility] Infusion Clinic [address] [place] [phone] Kelsy Gibson MD [address] [place] [address] Paola Childress, buffing wheel former automatic * Due to [place] [employer] law, this organization might not be sharing negative HIV tests. Procedure Name Priority Date/Time Associated Diagnosis Comments HEPATITIS C ANTIBODY W/REFLEX TO HCV RNA, QUANTITATIVE PCR Routine 05/13/2024 9:42 AM EST High risk medication use from Last 3 Months or Most Recently Relevant to Health Maintenance Results * Due to [place] [employer] law, this organization might not be sharing negative HIV tests. * Hepatitis C Antibody w/Reflex to HCV RNA, Quantitative PCR (05/13/2024 9:42 AM EST) Hepatitis C Antibody NON-REACT RIVKA NON-REACT RIVKA 05/13/2024 7:42 PM EST [employer] Comment: HCV antibody was non-reactive. There is no laboratory evidence of HCV infection. In most cases, no further action is required. However, if recent HCV exposure is suspected, a test for HCV RNA (test code 57860) is suggested. For additional information please refer to http://education.[employer]/faq/IVC58f5 (This link is being provided for informational/ educational purposes only.) Blood Structure of peripheral vein / Unknown Venipuncture / Unknown 05/13/2024 9:42 AM EST 05/13/2024 9:42 AM EST Narrative [facility] - 05/13/2024 7:42 PM EST [facility] Received Date: Kelsy Gibson MD LAB BLOOD ORDERABLES Final R esult [facility] [address] [facility] 3rd Floor, [place] [address], [place] [facility] [address] [facility] 3rd Floor, [place] [address], [place] [phone] from Last 3 Months or Most Recently Relevant to Health Maintenance Insurance [facility] Member Subscriber Plan / Payer (Ef fective 2024-Present) Name:Ebony Varghese Relation to Subscriber:Self Name:Ebony Varghese Payer ID:[id number] Type:HMO Address: [facility] [place] [id number] Care Teams Keypunch Operator Relationship Specialty Start Date End Date Linda Toney [address] [place] [address] PCP - General Internal Medicine 03/25/24
--- OUTSIDE RECORDS SUMMARY | 2024-10-19 12:27 | XMS_ITS | Clinical Summary ---
Author Organization [facility] Address [address] [place] [address] Care Team Providers Care Paint Roller Cover Machine Setter Name Role Phone Raul Titus MD Primary Care Provider [phone] Surgical History Surgery Date Site/Laterality Comments CHOLECYSTECTOMY PROCEDURE:CHOLECYSTECTOMY DENTAL SURGERY PROCEDURE:DENTAL SURGERY INGUINAL HIDRADENITIS EXCISION 07/27/2017 Left PROCEDURE:INGUINAL HIDRADENITIS EXCISION;COMMENT:Procedure: EXCISION HIDRADENITIS INGUINAL LEFT; Surgeon: Josie Rivera MD; Location: [facility] MAIN OPERATING ROOM; Service: General; [...] age to complete this topic Care Teams Paint Roller Cover Machine Setter Relationship Specialty Start Date End Date Raul Titus MD [address] [place] [address] [address] MAYRA José PCP - General 07/24/17
--- OUTSIDE RECORDS SUMMARY | 2024-10-19 12:28 | XMS_ITS | Clinical Summary ---
Author Organization [facility] Address [address] [place] [address] Care Team Providers Care Hitting Coach Name Role Phone Raul Titus Primary Care Provider [phone] Allergies Active Allergy Reactions Criticality Noted Date [...] age to complete this topic Care Teams Hitting Coach Relationship Specialty Start Date End Date Raul Titus DO [address] [place] [address] PCP - General 07/24/17
--- OUTSIDE RECORDS SUMMARY | 2024-10-19 12:28 | XMS_ITS | Clinical Summary ---
Author Organization [facility] Address [address] [place] [address] Care Team Providers Care Filler Shaker Name Role Phone Linda Toney Primary Care Provider [phone] Allergies Active Allergy Reactions Criticality Noted Date Comments Amoxicillin Hives,Itching,Rash Low 12/27/2015 Clindamycin Unknown 05/13/2024 Oxycodone Nausea And Vomiting 07/24/2017 GI upset Oxycodone-Acetaminophen Headache,Hives,L ighthead edness,Palpitations,Rash Low 01/28/2023 Penicillin Hives 01/28/2023 Sulfamethoxazole-Trimethopr im Dyspnea,Fatigue,Hives,Ra sh,Unknown High 12/27/2015 Medications camille peroxid/hydrocor t/ (CAMILLE PEROX-HC & CLEANSER NO.14 TOP) 09/16/2023 Active benzoyl peroxide 10% cleanser SMARTSIG:To pical Daily 03/17/2024 Active blood-glucose meter,continuous (Dexcom G7 Aircraft Maintenance Technician) misc by Other route once daily as [...] Dx 07/2022 followed by retina specialist in [place]. Left eye ptosis and intermittent double vision since 2022-followed by Dr. Rock at [facility] neuro. Right carotid stenosis. Resolved Problems Problem Noted Date Diagnosed Date Resolved Date Disease due to severe acute respiratory syndrome coronavirus 2 (SARS-CoV-2) 02/22/202209/04 Overview (09/29/2024): Problem added by Discern Expert Encounters Date Type Department Care Team Description 09/29/2024 3:00 PM EDT Office Visit [facility] Dermatology Clinic [address]th [address] [facility], [place] [phone] Choir Accompanist: Kelsy Castro MD Hidradenitis suppurativa (Primary Dx) 09/29/2024 Telephone [facility] [address] [facility], [place] [phone] Choir Accompanist: Gabriela Garcia MD 09/15/2024 Telephone [facility] [address] [facility], [place] [address] Choir Accompanist: Jazmine Baum MD 09/08/2024 2:00 PM EST Infusion [facility] Infusion Clinic [address] [place] [address] Kelsy Gibson MD Johnson, Jennifer A, RN Hidradenitis suppurativa (Primary Dx) 09/06/2024 Orders Only [facility] [address] [place] [address] Reba Leija, PharmD 08/03/2024 Refill [facility]atology Clinic [address]nd [address] [facility], [place] [address] Choir Accompanist: Shonda No LPN Hidradenitis suppurativa (Primary Dx) 07/28/2024 1:00 PM EST Infusion [facility]fusion Clinic [address] [place] [address] Kelsy Gibson MD Charter, Isabel, RN Hidradenitis suppurativa (Primary Dx) 07/28/2024 myChart Message [facility]atology Clinic [address] [facility], [place] [phone] Choir Accompanist: Kelsy Castro MD Dfmla from Last 3 [...] Info) Description 10/20/2024 2:00 PM EDT Infusion [facility] Infusion Clinic [address] [place] [address] Kelsy Gibson MD [address] [place] [address] Paola Childress, RN Health Maintenance Due Date Last Done Comments [...] Screening Completed 05/13/2024 Procedures * Due to [employer] law, this organization might not be sharing negative HIV tests. Procedure Name Priority Date/Time Associated Diagnosis Comments HEPATITIS C ANTIBODY W/REFLEX TO HCV RNA, QUANTITATIVE PCR Routine 05/13/2024 9:42 AM EST High risk medication use from Last 3 Months or Most Recently Relevant to Health Maintenance Results * Due to [place] [employer] law, this organization might not be sharing negative HIV tests. * Hepatitis C Antibody w/Reflex to HCV RNA, Quantitative PCR (05/13/2024 9:42 AM EST) Hepatitis C Antibody NON-REACT RIVKA NON-REACT RIVKA 05/13/2024 7:42 PM EST [employer] [facility] Comment: HCV antibody was non-reactive. There is no laboratory evidence of HCV infection. In most cases, no further action is required. However, if recent HCV exposure is suspected, a test for HCV RNA (test code 52488) is suggested. For additional information please refer to http://education.D[employer]torburada.com[employer]/faq/HGJ54f7 (This link is being provided for informational/ educational purposes only.) Blood Structure of peripheral vein / Unknown Venipuncture / Unknown 05/13/2024 9:42 AM EST 05/13/2024 9:42 AM EST Narrative [facility] - 05/13/2024 7:42 PM EST [facility] Received Date: us Kelsy Gibson MD LAB BLOOD ORDERABLES Final R esult [facility] [address] [facility] 3rd Floor, [place] [address], [facility] [address] [facility] 3rd Floor, [place] [address], from Last 3 Months or Most Recently Relevant to Health Maintenance Insurance [facility] Member Subscriber Plan / Payer (Ef fective 2024-Present) Name:Ebony Varghese Relation to Subscriber:Self Name:Ebnoy Varghese Payer ID:[id number] Group ID:Not on file Type:Not on file Address: [address] [address] Care Teams Filler Shaker Relationship Specialty Start Date End Date Linda Toney [address] [place] [address] PCP - General Internal Medicine 03/25/24
--- OUTSIDE RECORDS SUMMARY | 2024-10-19 12:28 | XMS_ITS | Encounter Summary ---
Author Organization [facility] Address [address] [place] [address] Care Team Providers Care Chief Of Internal Medicine Name Role Phone Linda Toney Primary Care Provider [phone] Encounter Details Date Type Department Care Team (Late st Contact Info) Description 09/15/2024 Telephone [facility] 4th Floor [address] [facility], [place] [address] Editorial Assistant: Jazmine Baum MD [address] [place] [address] [place] [address] Social History Tobacco Use Types Packs/Day Years [...] PM EDT reanna Jean nurse coordinator from [facility] requested a call back from the office regarding patients next infusions. Patient will need auth for home infusion and Reanna will help with auth. Best # to reach her is #[phone] documented in this encounter Plan of Treatment Upcoming Encounters Date Type Department Care Team (Late st Contact Info) Description 10/20/2024 2:00 PM EDT Infusion [facility] Infusion Clinic [address] [place] [address] Kelsy Gibson MD [address] [place] [address] Paola Childress, RN documented as of this encounter Visit Diagnoses Not on filedocumented in this encounter Care Teams Chief Of Internal Medicine Relationship Specialty Start Date End Date Linda Toney [address] [place] [address] PCP - General Internal Medicine 03/25/24 documented as of this encounter
--- OUTSIDE RECORDS SUMMARY | 2024-10-19 12:28 | XMS_ITS | Encounter Summary ---
Author Organization [facility] Address [address] [place] [address] Care Team Providers Care Machine Feeder Name Role Phone Linda Toney Primary Care Provider [phone] Encounter Details Date Type Department Care Team (Late st Contact Info) Description 09/06/2024 Orders Only [facility] [address] [place] [address] Reba Leija, PharmD Social History Tobacco Use [...] Info) Description 10/20/2024 2:00 PM EDT Infusion [facility] Infusion Clinic [address] [place] [address] Kelsy Gibson MD [address] [place] [address] Paola Childress, RN documented as of this encounter Visit Diagnoses Not on filedocumented in this encounter Care Teams Machine Feeder Relationship Specialty Start Date End Date Flor Toneyanna [address] [place] [address] PCP - General Internal Medicine 03/25/24 documented as of this encounter
[2024-10-19 13:19] LABS: MANUAL DIFF FLAG NO
[2024-10-19 13:20] LABS: Basophils Absolute Auto 0.1 X10*3/uL (0.0-0.2); Basophils Percent Auto 0.5 % (0-2); Eosinophils Absolute Auto 0.2 X10*3/uL (0.0-0.4); Eosinophils Percent Auto 2.6 % (0-4); Hematocrit 39.6 % (37.0-47.0); Hemoglobin 13.6 g/dl (12.0-16.0); Imm Gran Abs Auto 0.03 X10*3/uL (0.00-0.03); Imm Gran Pct Auto 0.3 % (0.0-0.4); Lymphocytes Absolute Auto 2.9 X10*3/uL (1.2-4.9); Lymphocytes Percent Auto 30.7 % (20-40); Mean Corpuscular HGB Conc 34.3 g/dl (31.0-35.0); Mean Corpuscular Hemoglobin 30.7 pg (27.0-33.0); Mean Corpuscular Volume 89.4 fL (80.0-98.0); Mean Platelet Volume 12.7 fL (9.4-12.3); Monocytes Absolute Auto 0.7 X10*3/uL (0.1-1.2); Monocytes Percent Auto 7.2 % (2-11); Neutrophils Absolute Auto 5.5 x10*3/uL (2.0-8.3); Neutrophils Percent Auto 58.7 % (45-73); Platelet Count 314 X10*3/uL (160-400); Red Blood Count 4.43 X10*6/uL (4.20-5.50); Red Cell Distribution Width 13.1 % (11.0-16.0); White Blood Count 9.4 X10*3/uL (4.8-10.8)
[2024-10-19 13:56] LABS: INTERNATIONAL NORM RATIO 1.1 (0.9-1.1); Prothrombin Time 12.7 SEC (10.9-12.4)
[2024-10-19 13:59] LABS: Partial Thromboplastin Time 32.6 SEC (26.0-36.8)
== END 2024-10-19 09:48 | disposition home or self-care (01) ==
LOC: HO.HMGCLDS 09:47
PROVIDERS: PCP Internal Medicine; Visit Provider Internal Medicine
DX: R04.0 Epistaxis (principal); E10.9 Type 1 diabetes mellitus without complications; Z96.41 Presence of insulin pump (external) (internal)
CPT/HCPCS: 36415; 85025; 85610; 85730; 96127

== ENCOUNTER 2024-10-19 09:47 | Outpatient (AMB) | payer OTHER, SELFPAY ==
[2024-10-19 09:56] VITALS: BP 104/74; PULSE 84; RESP 18; TEMP 36.7; O2SAT 98; BMI 33.1
--- NOTE | 2024-10-19 09:56 | MHC.PC.OV ---
Vital Signs 10/19/24 09:56 Height 5 ft 6 in Weight 205 lb BMI 33.1 BP 104/74 Blood Pressure Location Lt brachial Position Sitting Respiration 18 Pulse 84 Pulse Source Pulse Oximeter Temp 98.1 F Temp Source Oral Pulse Oximetry (%) 98 Oxygen Delivery Method Room Air Intake Visit Reasons: bloody nose Intake Note: [place] is here today [place] [facility]. Pt c/o 6 episodes of nose bleeds since Thursday. Allergies sulfamethoxazole [From Bactrim] Allergy (Mild, Verified 10/19/24 09:58) RASH trimethoprim [From Bactrim] Allergy (Mild, Verified 10/19/24 09:58) RASH oxycodone Allergy (Unknown, Verified 10/19/24 09:58) hives rash penicillin V Allergy (Unknown, Verified 10/19/24 09:58) hives, rash Sulfa (Sulfonamide Antibiotics) Allergy (Unknown, Verified 10/19/24 09:58) rash amoxicillin [Amoxicillin] Adverse Reaction (Mild, Verified 10/19/24 09:58) CANT FEEL LEGS Adhesive tape Allergy (Unknown, Uncoded 10/19/24 09:58) Rash Bactrim Allergy (Unknown, Uncoded 10/19/24 09:58) Anaphylaxis From PERCOCET Allergy (Unknown, Uncoded 10/19/24 09:58) RASH PCN Allergy (Unknown, Uncoded 10/19/24 09:58) Anaphylaxis Percocet Allergy (Unknown, Uncoded 10/19/24 09:58) Rash Tobacco use date assessed: 10/19/24 Dental Screening Dental Screen Date: 10/19/24 Did you have a dental visit in the last 12 months?: Yes Did you have a dental problem in the last 6 months where you did not have access to dental care?: No Was dental information given to patient?: Patient has dentist HPI bloody nose HPI Details Patient complains of epistaxis from right nostril for 3 days. She denies any nose trauma, has not been using nasal sprays and denies symptoms of rhinitis. Patient denies symptoms of easy bruising and has not been taking NSAIDs. Type 1 diabetes is controlled on insulin pump. [facility]LY [facility] Medical History Hypersomnia Loud snoring Diplopia Annual physical exam Normal Pap smear Hyperlipidemia POTS (postural orthostatic tachycardia syndrome) Migraine Hidradenitis suppurativa HTN (hypertension) MDD (major depressive disorder) Psoriasis IBS (irritable bowel syndrome) Palpitation Type 2 diabetes mellitus Surgical History Hx of cholecystectomy History of liver biopsy Family History Father Diabetes HTN (hypertension) Mother Multiple sclerosis Social History Household Members Other:: Student for respiratory therapy. Two children 11 and 18-year-old Housing: House Alcohol intake: current Alcohol intake frequency: holidays/special occasions only Patient Tobacco Use Status: Former Tobacco user e-Cigarette/Vaping Use: Never Used service: No Current occupational status: unemployed Cognitive needs: No Hearing needs: No Vision needs: No Questionnaire PHQ-9 Over the last 2 weeks, how often have you been bothered by any of the following problems? 1. Little interest or pleasure in doing things: not at all 2. Feeling down, depressed, or hopeless: not at all 3. Trouble falling or staying asleep, or sleeping too much: not at all 4. Feeling tired or having little energy: not at all 5. Poor appetite or overeating: not at all 6. Feeling bad about yourself - or that you are a failure or have let yourself or your family down: not at all 7. Trouble concentrating on things, such as reading the newspaper or watching television: not at all 8. Moving or speaking so slowly that other people could have noticed. Or the opposite - being so fidgety or restless that you have been moving around a lot more than usual: not at all 9. Thoughts that you would be better off or of hurting yourself in some way: not at all Total score: 0 Depression Screening Interpretation: Negative Depression Screening Done: Yes 25875 - PHQ-9 Billing: Yes Source: Developed by Drs. Arun Raphael, Galina Gil, Ang Smiley and colleagues, with an educational sharon from [employer]. Thrive Questionnaire Date Thrive assessed: 10/19/24 I am a: Patient What is your living situation today?: I have a steady place to live Within the past 12 months, did the food you bought not last and you didn't have the money to get more?: Never true Within the past 12 months, did you worry whether your food would run out before you got money to buy more?: Never true Do you have trouble paying for medicines?: Yes Do you have trouble getting transportation to medical appointments?: No Do you have trouble paying your heating and electricity bill?: No Do you have trouble taking care of your child, family member or friend?: No Do you have trouble with day-to-day activities such as bathing, preparing meals, shopping, managing finances, etc.?: No Are you currently unemployed and looking for a job?: No Are you interested in more education?: No Please select the resources that you would like help with: None Currently or been in a relationship where the following occur: No concerns reported THRIVE Score: 0 AUDIT C Alcohol Use Questionnaire (AUDIT-C) 1. How often do you have a drink containing alcohol?: Monthly or less 2. How many drinks containing alcohol do you have on a typical day when you are drinking?: 1 or 2 3. How often do you have six or more drinks on one occasion?: Less than monthly Total Score: 2 ROHIT-7 AMB Questionnaire ROHIT-7 Date ROHIT - 7 assessed: 10/19/24 Feeling nervous, anxious, or on edge: 0 = Not at all Not being able to stop or control worryin = Not at all Worrying too much about different things: 0 = Not at all Trouble relaxin = Not at all Being so restless that it is hard to sit still: 0 = Not at all Becoming easily annoyed or irritable: 0 = Not at all Feeling afraid as if something awful might happen: 0 = Not at all Total ROHIT-7 score (0-4 normal; 5-9 mild; 10-14 moderate; 15-21 severe): 0 Source: Developed by Drs. Arun Raphael, Galina Gil, Ang Smiley and colleagues, with an educational sharon from [employer]. ROHIT-7 Assessment Billing ROHIT-7 Assessment Tool: ROHIT-7 Assessment 67589 Review of Systems Const All systems reviewed & are unremarkable except as noted in HPI and below Eyes Reports no additional complaints ENT Reports no additional complaints Card Reports no additional complaints Resp Reports no additional complaints GI Reports no additional complaints Reports no additional complaints Physical exam (Primary Care) Vital Signs: Last Vital Signs Temp 98.1 F 10/19/24 09:56 Pulse 84 10/19/24 09:56 Resp 18 10/19/24 09:56 BP 104/74 10/19/24 09:56 Pulse Ox 98 10/19/24 09:56 Oxygen Delivery Method Room Air 10/19/24 09:56 BMI result Body Mass Index 33.1 Tobacco/Smoking Status: Tobacco use Status Tobacco use date assessed 10/19/24 10/19/24 10:03 Patient Tobacco Use Status Former Tobacco user 10/19/24 10:03 e-Cigarette/Vaping Use Never Used 10/19/24 10:03 PHQ-9: PHQ-9 Score PHQ-9: Total score 0 10/19/24 10:03 Depression Screening Interpretation: Negative Thrive Assessment: Date of Thrive Assessment Date Thrive assessed 10/19/24 10/19/24 10:03 Currently or been in a relationship where the following occur: No concerns reported Const General: no acute distress HENMT Head: Yes normal to inspection Ears: TM's normal bilaterally General nose exam: Normal external nose present and Abnormal mucous membranes and turbinates present (Right nostril erythema and small amount of blood present) erythematous Face and sinus: Yes normal facial exam Mouth: Normal oral and palatal mucosa present Throat: Yes posterior oropharynx normal Eyes General: appearance normal, both eyes and all related structures Neck Neck: Yes supple Resp Effort & Inspection: normal respiratory effort Auscultation: clear to auscultation bilaterally Cardio Rhythm: regular rhythm Heart sounds: S1 normal heart sound present and S2 normal heart sound present Coding Level of Care Code Est Pt Level 3 (82181) Diagnoses Epistaxis R04.0 Additional Codes ROHIT-7 Assessment Billing - ROHIT-7 Assessment Tool: ROHIT-7 Assessment 54653 ([id number]) PHQ-9 - 15448 - PHQ-9 Billing: Yes ([id number]) Assessment & Plan Assessment & Plan (1) Epistaxis: Code(s): R04.0 - Epistaxis Category: Medical Plan: Check CBC PT and PTT, referred to ENT. Patient was advised to use cool mist humidifier and saline nasal gel for any worsening symptoms she was advised to go to the ED Orders: Orders Complete Blood Count Auto Diff Today R04.0 - Epistaxis Prothrombin Time INR Today R04.0 - Epistaxis Partial Thromboplastin Time Today R04.0 - Epistaxis Referrals Ear/Nose/Throat Referral R04.0 - Epistaxis Medications: Discontinued loratadine (Claritin) Discontinued Reason: Doctor's Order 10 mg PO DAILY 30 tabs 0RF R05.9 - Cough, unspecified
--- OUTSIDE RECORDS SUMMARY | 2024-10-19 11:01 | XMS_ITS | Referral Summary ---
Author Organization [facility] Address [address] [place] [address] Care Team Providers Care Science Intern Name Role Phone Linda Toney Primary Care Provider [phone] Encounters Date Type Department Care Team Description 09/29/2024 Telephone [facility] 4th Floor [address] [place] [phone] Solid [facility]: Gabriela Garcia MD 09/29/2024 3:00 PM EDT Office Visit [facility] 4th Floor [address] [place] [phone] [facility]: Kelsy Castro MD Hidradenitis suppurativa (Primary Dx) 09/15/2024 Telephone [facility] 4th Floor [address] [place] [phone] [facility]: Jazmine Baum MD 09/08/2024 2:00 PM EST Infusion [facility] [address] [place] [address] Kelsy Gibson MD Johnson, Jennifer A, RN Hidradenitis suppurativa (Primary Dx) 09/06/2024 Orders Only [facility] [address] [place] [address] Reba Leija, PharmD 08/03/2024 Refill [facility] 2nd Floor [address] [facility], [place] [address] [facility] [place]: Shonda No LPN Hidradenitis suppurativa (Primary Dx) 07/28/2024 myChart Message [facility] 4th Floor [address] [facility], [place] [phone] Solid [facility] [place]: Kelsy Castro MD Dfmla 07/28/2024 1:00 PM EST Infusion [facility] [address] [place] [address] Kelsy Gibson MD Charter, Isabel, RN Hidradenitis suppurativa (Primary Dx) from Last 3 Months Allergies Active Allergy Reactions Criticality Noted Date Comments Amoxicillin Hives,Itching,Rash Low 12/27/2015 Clindamycin Unknown 05/13/2024 Oxycodone Nausea And Vomiting 07/24/2017 GI upset Oxycodone-Acetaminophen Headache,Hives,L ighthead edness,Palpitations,Rash Low 01/28/2023 Penicillin Hives 01/28/2023 Sulfamethoxazole-Trimethopr im Dyspnea,Fatigue,Hives,Ra sh,Unknown High 12/27/2015 Medications camille peroxid/hydrocor t/ (CAMILLE PEROX-HC & CLEANSER NO.14 TOP) 09/16/2023 Active benzoyl peroxide 10% cleanser SMARTSIG:To pical Daily 03/17/2024 Active blood-glucose meter,continuous (Dexcom G7 Speech Therapy Director) misc by Other route once daily as needed. 05/10/2024 Active blood-glucose sensor (Dexcom G6 Sensor) device 1 each by Other route. 04/21/2024 Active cyclobenzaprine (FLEXERIL) 10 mg tablet SMARTSI Tablet(s) By Mouth Every Night 09/14/2023 Active insulin lispro protamin-lispro (HumaLOG Mix 50-50 Insuln U-100) 100 unit/mL (50-50) suspension 08/17/2003 Active Hospital, Clinic, or Other Facility Administered Medication Ordered Dose Route Frequency Start Date End Date Status triamcinolone acetonide (KENALOG-10) injection 10 mgIndications:Hidraden itis suppurativa 10 mg intraderma Once 09/29/2024 09/29/2024 Ended Active Problems Problem Noted Date Diagnosed Date Fatty liver 09/29/2024 Class 1 obesity 09/29/2024 Depression 09/29/2024 Hypertension 09/29/2024 Psoriasis 09/29/2024 Type 1 diabetes mellitus with hyperglycemia 08/07 Fatigue 02/06/2024 Vitamin D deficiency, unspecified 08/02/[address] 01/28/2023 Postural orthostatic tachycardia syndrome (POTS) 05/08/2020 Hidradenitis suppurativa of multiple sites 12/06 Diabetes 1.5, 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 metformin for few months then DKA and switch to basal/bolus insulin. MiniMed pump 2004. CGM added around 2005. Changed to OmniPod with Dexcom around 2021. OmniPod 5 with Dexcom. Symptomatic PNP. Had nerve conduction studies in 2009. Left diabetic retinopathy Dx 07/2022 followed by retina specialist in [place]. Left eye ptosis and intermittent double vision since 2022-followed by Dr. Rock at [facility] neuro. Right carotid stenosis. Resolved Problems Problem Noted Date Diagnosed Date Resolved Date Disease due to severe acute respiratory syndrome coronavirus 2 (SARS-CoV-2) 02/22/202209/04 Overview (09/29/2024): Problem added by Discern Expert Immunizations Immunization Administration Dates Next Due Covid-19 Monovalent Vaccine, Moderna, mRNA, PF 11/03/2020,10/04/2020,09/07/2020,2020 Influenza, Injectable, Quadr ivalent, Contains Preservative 06/06/2019 Influenza, Injectable, Quadr ivalent, Preservative Free 04/15/2021,03/29/2020 Influenza, Trivalent, MDV, Injectable 03/21/2017 Tetanus Toxoid, Reduced Diph theria Toxoid, and Acellular Pertussis Vaccine, Adsorbed 01/13/2022 Social History Tobacco Use Types Packs/Day Years Used Date Smoking Tobacco: Never Assessed Comments Unknown Sex and Gender Information Value Date Recorded Sex Assigned at Female 03/25/2024 10:38 AM EDT Legal Sex Female 10:33 AM EDT Gender Identity Female 05/08/2024 3:54 PM EST Sexual Orientation Straight 05/08/2024 3: 54 PM EST Last Filed Vital Signs Vital Sign Reading Time Taken Comments Blood Pressure 107/72 09/08/2024 1:59 PM EST Pulse 93 09/08/2024 1:59 PM EST Temperature 36.8 ??C (98.2 ??F) 09/08/2024 1:59 PM ES T Respiratory Rate 20 09/08/2024 1:59 PM EST Oxygen Saturation 97% 09/08/2024 1:59 PM EST Inhaled Oxygen Concentration - - Weight 95.3 kg (210 lb) 09/29/2024 3:16 PM EDT Height 169.1 cm (5' 6.58 ) 06/30/2024 1:59 PM ES T Body Mass Index 33.31 06/30/2024 1:59 PM EST Plan of Treatment Upcoming Encounters Date Type Department Care Team (Late st Contact Info) Description 10/20/2024 2:00 PM EDT Infusion [facility] [address] [place] [address] Kelsy Gibson MD [address] [place] [id number] Procedures * Due to [place] Memamp law, this organization might not be sharing negative HIV tests. Procedure Name Priority Date/Time Associated Diagnosis Comments HEPATITIS C ANTIBODY W/REFLEX TO HCV RNA, QUANTITATIVE PCR Routine 05/13/2024 9:42 AM EST High risk medication use from Last 3 Months or Most Recently Relevant to Health Maintenance Results * Due to [place] Mem[employer] law, this organization might not be sharing negative HIV tests. * Hepatitis C Antibody w/Reflex to HCV RNA, Quantitative PCR (05/13/2024 9:42 AM EST) Hepatitis C Antibody NON-REACT RIVKA NON-REACT RIVKA 05/13/2024 7:42 PM EST [employer] [facility] Comment: HCV antibody was non-reactive. There is no laboratory evidence of HCV infection. In most cases, no further action is required. However, if recent HCV exposure is suspected, a test for HCV RNA (test code 54909) is suggested. For additional information please refer to http://education.[employer]/faq/QET71f8 (This link is being provided for informational/ educational purposes only.) Blood Structure of peripheral vein / Unknown Venipuncture / Unknown 05/13/2024 9:42 AM EST 05/13/2024 9:42 AM EST Narrative [facility] - 05/13/2024 7:42 PM EST [facility] Received Date: Kelsy Gibson MD LAB BLOOD ORDERABLES Final R esult [facility] [address] [facility] [address]rd [address], [place] [address], [facility] [employer] [facility] [address] [facility] [address], [place] [address], from Last 3 Months or Most Recently Relevant to Health Maintenance Insurance [facility] Care Teams Science Intern Relationship Specialty Start Date End Date Linda Toney [address] [place] [phone] PCP - General Internal Medicine 03/25/24
--- OUTSIDE RECORDS SUMMARY | 2024-10-19 11:01 | XMS_ITS | Clinical Summary ---
Author Organization [facility] Address [address] [place] [address] Care Team Providers Care Frame And Scrap Crusher Name Role Phone Raul Titus Primary Care Provider Allergies Active Allergy Reactions Criticality Noted Date Comments Amoxicillin Rash Low 07/24/2017 Sulfamethoxazole-Trimethoprim Rash Low 2017 Oxycodone Nausea And Vomiting 07/24/2017 GI upset Medications Medication Sig Dispensed Refills Start Date End Date Status insulin lispro (HumaLOG) injection 100 units/mL Inject under the skin continuous. Via insulin pump 0 Active HYDROmorphone (DILAUDID) 2 MG tablet Take 1 tablet (2 mg total) by mouth every 4 (four) hours as needed for pain. 15 tablet 0 07/27/2017 Active Social History Tobacco Use Types Packs/Day Years Used Date Smoking Tobacco: Every Day Cigarettes 0.3 Smokeless Tobacco: Never Alcohol Use Standard Drinks/Week Comments No 0 (1 standard drink = 0.6 oz pur e alcohol) Sex and Gender Information Value Date Recorded Sex Assigned at Not on file Gender Identity Not on file Sexual Orientation Not on file Last Filed Vital Signs Vital Sign Reading Time Taken Comments Blood Pressure 124/74 07/27/2017 9:54 AM EST Pulse 78 07/27/2017 9:54 AM EST Temperature 36.1 ??C (97 ??F) 07/27/2017 9:00 AM EST Respiratory Rate 20 07/27/2017 9:30 AM EST Oxygen Saturation 97% 07/27/2017 9:54 AM EST Inhaled Oxygen Concentration - - Weight 78.9 kg (174 lb) 07/24/2017 8:23 AM EST Height 170.2 cm (5' 7 ) 07/24/2017 8:23 AM EST Body Mass Index 27.25 07/24/2017 8:23 AM EST Plan of Treatment Health Maintenance Due Date Last Done Comments Hepatitis B Vaccines (1 of 3 - 3-dose series) 1984 Hepatitis C Screening 1984 COVID-19 Vaccine (#1) 1984 Pneumococcal Vaccine (1 of 2 - PCV) 01/04/1990 Depression Screening 1996 Preventative Health Evaluation 01/04/2002 DTap / Tdap / Td (1 - Tdap) 01/04/2003 Cervical Cancer Screening (P ap Smear) 01/04/2005 Influenza Vaccine (#1) 2024 RSV Ped < 20 months Aged Out No longe r eligible based on patient's age to complete this topic Care Teams Frame And Scrap Crusher Relationship Specialty Start Date End Date Raul Titus DO [address] [place] [address] PCP - General 07/24/17
--- OUTSIDE RECORDS SUMMARY | 2024-10-19 11:01 | XMS_ITS | Clinical Summary ---
Author Organization [facility] Address [address] [place] [address] Care Team Providers Care Showcase Trimmer Name Role Phone Raul Titus MD Primary Care Provider [phone] Surgical History Surgery Date Site/Laterality Comments CHOLECYSTECTOMY PROCEDURE:CHOLECYSTECTOMY DENTAL SURGERY PROCEDURE:DENTAL SURGERY INGUINAL HIDRADENITIS EXCISION 07/27/2017 Left PROCEDURE:INGUINAL HIDRADENITIS EXCISION;COMMENT:Procedure: EXCISION HIDRADENITIS INGUINAL LEFT; Surgeon: Josie Rivera MD; Location: [facility] MAIN OPERATING ROOM; Service: General; Laterality: Left; Medical History Medical History Date Comments Arrhythmia DX:Arrhythmia;CO MMENT:On 07/24/17 pt states she has tachycardia at times but per PCP has never been concerned enough to pursue further workup Diabetes mellitus type I (CM S/HCC V24, CMS/HCC V28) DX:Diabetes mellitus type I (HCC);COMMENT:Insulin pump Social History Tobacco Use Types Packs/Day Years Used Date Smoking Tobacco: Every Day Cigarettes Smokeless Tobacco: Never Alcohol Use Standard Drinks/Week Comments No 0 (1 standard drink = 0.6 oz pur e alcohol) Comments Unknown Sex and Gender Information Value Date Recorded Sex Assigned at Not on file Legal Sex Female 8:37 AM EST Gender Identity Not on file Sexual Orientation Not on file Obstetrics History Plan of Treatment Health Maintenance Due Date Last Done Comments Breast Cancer Screening 1984 DTaP,Tdap,and Td Vaccines (1 - Tdap) 01/04/2003 Hepatitis B Vaccines (1 of 3 - 19+ 3-dose series) 01/04/2003 Cervical Cancer Screening: P ap Smear 01/04/2005 COVID-19 Vaccine (2023-2 5 season) 2024 Influenza Vaccine (Season Ended) 2025 HIB Vaccines Aged Out No longer eligi ble based on patient's age to complete this topic HPV Vaccines Aged Out No longer eligi ble based on patient's age to complete this topic Hepatitis A Vaccines Aged Out No long er eligible based on patient's age to complete this topic IPV Vaccines Aged Out No longer eligi ble based on patient's age to complete this topic MMR Vaccines Aged Out No longer eligi ble based on patient's age to complete this topic Meningococcal ACWY Vaccine Aged Out N o longer eligible based on patient's age to complete this topic Meningococcal B Vaccine Aged Out No l onger eligible based on patient's age to complete this topic Pneumococcal Vaccine: Pediat rics (0 to 5 Years) and At-Risk Patients (6 to 64 Years) Aged Out No longer eligible b ased on patient's age to complete this topic RSV Immunization Patients Un lala 20 months Aged Out No longer eligible b ased on patient's age to complete this topic Varicella Vaccines Aged Out No longer eligible based on patient's age to complete this topic Care Teams Showcase Trimmer Relationship Specialty Start Date End Date Raul Titus MD [address] [place] [address] [address] MAYRA José PCP - General 07/24/17
--- OUTSIDE RECORDS SUMMARY | 2024-10-19 11:01 | XMS_ITS | Encounter Summary ---
Author Organization [facility] Address [address] [place] [address] Care Team Providers Care Armature Balancer Name Role Phone Lnida Toney Primary Care Provider [phone] Encounter Details Date Type Department Care Team (Late st Contact Info) Description 09/15/2024 Telephone [facility] 4th Floor [address] [facility], [place] [address] Sample Case Porter: Jazmine Baum MD [address] [place] [address] [place] [address] Social History Tobacco Use Types Packs/Day Years Used Date Smoking Tobacco: Never Assessed Comments Unknown Sex and Gender Information Value Date Recorded Sex Assigned at Female 03/25/2024 10:38 AM EDT Legal Sex Female 10:33 AM EDT Gender Identity Female 05/08/2024 3:54 PM EST Sexual Orientation Straight 05/08/2024 3: 54 PM EST documented as of this encounter Miscellaneous Notes * Telephone Encounter - Ashlee Ramirez - 09/15/2024 1:12 PM EDT reanna Jean nurse coordinator from [facility] requested a call back from the office regarding patients next infusions. Patient will need auth for home infusion and Reanna will help with auth. Best # to reach her is #[phone] documented in this encounter Plan of Treatment Upcoming Encounters Date Type Department Care Team (Late st Contact Info) Description 10/20/2024 2:00 PM EDT Infusion [facility] [address] [place] [id number] Kelsy Gibson MD [address] [place] [address] documented as of this encounter Visit Diagnoses Not on filedocumented in this encounter Care Teams Armature Balancer Relationship Specialty Start Date End Date Linda Toney [address] [place] [address] PCP - General Internal Medicine 03/25/24 documented as of this encounter
--- OUTSIDE RECORDS SUMMARY | 2024-10-19 11:01 | XMS_ITS | Encounter Summary ---
Author Organization [facility] Address [address] [place] [address] Care Team Providers Care Seating Upholsterer Name Role Phone Linda Toney Primary Care Provider [phone] Encounter Details Date Type Department Care Team (Late st Contact Info) Description 09/06/2024 Orders Only [facility] [address] [place] [address] Reba Leija, PharmD Social History Tobacco Use Types Packs/Day Years Used Date Smoking Tobacco: Never Assessed Comments Unknown Sex and Gender Information Value Date Recorded Sex Assigned at Female 03/25/2024 10:38 AM EDT Legal Sex Female 10:33 AM EDT Gender Identity Female 05/08/2024 3:54 PM EST Sexual Orientation Straight 05/08/2024 3: 54 PM EST documented as of this encounter Plan of Treatment Upcoming Encounters Date Type Department Care Team (Late st Contact Info) Description 10/20/2024 2:00 PM EDT Infusion [facility] [address] [place] [address] Kelsy Gibson MD [address] [place] [address] documented as of this encounter Visit Diagnoses Not on filedocumented in this encounter Care Teams Seating Upholsterer Relationship Specialty Start Date End Date Linda Toney [address] [place] [address] PCP - General Internal Medicine 03/25/24 documented as of this encounter
--- OUTSIDE RECORDS SUMMARY | 2024-10-19 11:01 | XMS_ITS | Clinical Summary ---
Author Organization [facility] Address [address] [place] [address] Care Team Providers Care Hebrew Cantor Name Role Phone Linda Toney Primary Care Provider [phone] Allergies Active Allergy Reactions Criticality Noted Date Comments Amoxicillin Hives,Itching,Rash Low 12/27/2015 Clindamycin Unknown 05/13/2024 Oxycodone Nausea And Vomiting 07/24/2017 GI upset Oxycodone-Acetaminophen Headache,Hives,L ighthead edness,Palpitations,Rash Low 01/28/2023 Penicillin Hives 01/28/2023 Sulfamethoxazole-Trimethopr im Dyspnea,Fatigue,Hives,Ra sh,Unknown High 12/27/2015 Medications camille peroxid/hydrocor t/ (CAMILLE PEROX-HC & CLEANSER NO.14 TOP) 09/16/2023 Active benzoyl peroxide 10% cleanser SMARTSIG:To pical Daily 03/17/2024 Active blood-glucose meter,continuous (Dexcom G7 Tombstone Carver) misc by Other route once daily as [...] proliferative reti nopathy 07/07/2000 Overview (09/29/2024): GDM 2001 treated with metformin. metformin for few months then DKA and switch to basal/bolus insulin. MiniMed pump 2004. CGM added around 2005. Changed to OmniPod with Dexcom around 2021. OmniPod 5 with Dexcom. Symptomatic PNP. Had nerve conduction studies in 2009. Left diabetic retinopathy Dx 07/2022 followed by retina specialist in [place]. Left eye ptosis and intermittent double vision since 2022-followed by Dr. Rock at [facility]. Right carotid stenosis. Resolved Problems Problem Noted Date Diagnosed Date Resolved Date Disease due to severe acute respiratory syndrome coronavirus 2 (SARS-CoV-2) 02/22/202209/04 Overview (09/29/2024): Problem added by Discern Expert Encounters Date Type Department Care Team Description 09/29/2024 3:00 PM EDT Office Visit [facility] 4th Floor [address] [facility], [place] [address] Early Childhood Specialist: Kelsy Castro MD Hidradenitis suppurativa (Primary Dx) 09/29/2024 Telephone [facility] 4th Floor [address] [facility], [place] [address] Early Childhood Specialist: Gabriela Garcia MD 09/15/2024 Telephone [facility] 4th Floor [address] [facility], [place] [address] Early Childhood Specialist: Jazmine Baum MD 09/08/2024 2:00 PM EST Infusion [facility] Infusion [facility] [address] [place] [address] Kelsy Gibson MD Johnson, Jennifer A, RN Hidradenitis suppurativa (Primary Dx) 09/06/2024 Orders Only [facility] [address] [place] [address] Reba Leija, PharmD 08/03/2024 Refill [facility] 2nd Floor [address] [facility], [place] [address] Early Childhood Specialist: Shonda No LPN Hidradenitis suppurativa (Primary Dx) 07/28/2024 1:00 PM EST Infusion [facility] Infusion [facility] [address] [place] [address] Kelsy Gibson MD Charter, Isabel, RN Hidradenitis suppurativa (Primary Dx) 07/28/2024 myChart Message [facility] 4th Floor [address] [facility], [place] [address] Early Childhood Specialist: Kelsy Castro MD Dfmla from Last 3 Months Immunizations Immunization Administration Dates Next Due Covid-19 [...] Info) Description 10/20/2024 2:00 PM EDT Infusion [facility]fusion [facility] [address] [place] [address] Kelsy Gibson MD [address] [place] [address] Health Maintenance Due Date Last Done Comments Cervical Cancer Screening 1984 HPV and Pap Smear 1984 Pap Smear 1984 Ophthalmology Exam 01/04/1994 Urine Microalbumin 01/04/1994 Varicella Vaccines (1 of 2 - 13+ 2-dose series) 01/04/1997 Hepatitis B Vaccines (1 of 3 - 19+ 3-dose series) 01/04/2003 Pneumococcal Vaccine: Pediat andrea (0-5 Years) and At-Risk Patients (6-50 Years) (1 of 2 - PCV) 01/04/2003 Mammogram 2024 COVID-19 Vaccine (5 - 2023-2 5 season) 2024 11/03/2020, 10/04/2020, 09/07/2020, Additional history exists Alcohol/Substance Use Screening 07/06/2024 Depression Screening and Follow-Up 07/06/2024 Social Drivers of Health Chandni ual Screening 07/06/2024 Hemoglobin A1C 07/27/2024 01/25/2024, 05/0 09/2023, 07/27/2023, Additional history exists Basic Metabolic Panel 01/24/2025 01/25/2024 Influenza Vaccine (Season Ended) 2025 04/15/2021, 03/29/2020, 06/06/2019, Additional history exists DTaP,Tdap,and Td Vaccines (2 - Td or Tdap) 01/14/2032 01/13/2022 RSV Vaccine (60+ years old a nd patients) (1 - 1-dose 75+ series) 01/04/2059 HIV Screening Completed 05/13/2024 Hepatitis C Screening Completed 05/13/2024 Procedures * Due to [place] [employer] law, this organization might not be sharing negative HIV tests. Procedure Name Priority Date/Time Associated Diagnosis Comments HEPATITIS C ANTIBODY W/REFLEX TO HCV RNA, QUANTITATIVE PCR Routine 05/13/2024 9:42 AM EST High risk medication use from Last 3 Months or Most Recently Relevant to Health Maintenance Results * Due to [place] [employer] law, this organization might not be sharing negative HIV tests. * Hepatitis C Antibody w/Reflex to HCV RNA, Quantitative PCR (05/13/2024 9:42 AM EST) Hepatitis C Antibody NON-REACT RIVKA NON-REACT RIVKA 05/13/2024 7:42 PM EST [employer] [facility] Comment: HCV antibody was non-reactive. There is no laboratory evidence of HCV infection. In most cases, no further action is required. However, if recent HCV exposure is suspected, a test for HCV RNA (test code 04393) is suggested. For additional information please refer to http://education.[employer]/faq/JEN34r9 (This link is being provided for informational/ educational purposes only.) Blood Structure of peripheral vein / Unknown Venipuncture / Unknown 05/13/2024 9:42 AM EST 05/13/2024 9:42 AM EST Narrative [facility] - 05/13/2024 7:42 PM EST [facility] Received Date: us Kelsy Gibson MD LAB BLOOD ORDERABLES Final R esult [facility] [address] [facility] 3rd Floor, [place] [address], [place] [phone] [facility] [address] [facility] 3rd Floor, [place] [address], from Last 3 Months or Most Recently Relevant to Health Maintenance Insurance [facility] Member Subscriber Plan / Payer (Ef fective 2024-Present) Name:Ebony Varghese Relation to Subscriber:Self Name:Ebony Varghese Payer ID:[id number] Group ID:Not on file Type:Not on file Address: [address] [address] Care Teams Hebrew Cantor Relationship Specialty Start Date End Date Linda Toney [address] [place] [address] PCP - General Internal Medicine 03/25/24
== END 2024-10-19 11:23 | disposition home or self-care (01) ==
PROVIDERS: PCP Internal Medicine; Visit Provider Internal Medicine
DX: R04.0 Epistaxis (principal)

== ENCOUNTER 2024-11-07 19:15 | Emergency (ER) | payer OTHER, SELFPAY ==
[2024-11-07 20:09] VITALS: BP 140/84; PULSE 81; RESP 16; TEMP 36.6; O2SAT 100; BMI 32.5
--- NOTE | 2024-11-07 20:31 | ED_ITS ---
HPI - General Adult General Chief complaint: Skin/Abscess/Foreign Body Stated complaint: left breast pain Time Seen by Provider: 11/07/24 22:07 Source: patient Mode of arrival: ambulatory Limitations: no limitations History of Present Illness ED Provider: Yesenia Lewis NP HPI narrative: Patient is a 39-year-old female who presents emergency department for evaluation. She has a known history of hidradenitis suppurativa of which she is currently being managed by [facility], currently on a clinical trial with Remicade. She reports over the past few days she has began developing painful palpable lumps beneath the left breast concerning for abscess, one which has opened and has had a small amount of bloody pus-like drainage. There are 2 additional areas she is concerned that an abscess is forming and has increasing pain. She denies associated fevers or chills. Denies any pain to the breasts or palpable lumps with in the breast, no areolar discharge. Related Data Home Medications ?Medication ?Instructions ?Recorded ?Confirmed insulin lispro 100 unit/mL subcut 11/08/20 02/23/24 subcutaneous solution insulin pump cartridge #5 ea 11/08/20 02/23/24 insulin pump cart,cont inf,BT #5 ea 01/03/22 02/23/24 (Omnipod Dash Pods (Gen 4) subcutaneous cartridge) norethindrone (contraceptive) 0.35 0.35 mg PO DAILY 11/12/23 02/23/24 mg tablet spironolactone 100 mg tablet 100 mg PO DAILY 11/12/23 02/23/24 empagliflozin 10 mg tablet 10 mg PO DAILY 10/19/24 (Jardiance) infliximab 100 mg intravenous IV 10/19/24 solution (Remicade) Previous Rx's ?Medication ?Instructions ?Recorded MuSK antibody levels #1 ea 06/15/23 pyridostigmine bromide 30 mg tablet 30 mg PO TID #90 tabs 06/15/23 propranolol 160 mg capsule,24 160 mg PO DAILY #90 caps 12/01/23 hr,extended release clindamycin HCl 300 mg capsule 300 mg PO TID 5 days #15 caps 11/07/24 Allergies Allergy/AdvReac Type Severity Reaction Status Date / Time sulfamethoxazole Allergy Mild RASH Verified 11/07/24 20:12 [From Bactrim] trimethoprim [From Bactrim] Allergy Mild RASH Verified 11/07/24 20:12 oxycodone Allergy Unknown hives rash Verified 11/07/24 20:12 penicillin V Allergy Unknown hives, rash Verified 11/07/24 20:12 Sulfa (Sulfonamide Allergy Unknown rash Verified 11/07/24 20:12 Antibiotics) amoxicillin [Amoxicillin] AdvReac Mild CANT FEEL Verified 11/07/24 20:12 LEGS Adhesive tape Allergy Unknown Rash Uncoded 11/07/24 20:12 Bactrim Allergy Unknown Anaphylaxis Uncoded 11/07/24 20:12 From PERCOCET Allergy Unknown RASH Uncoded 11/07/24 20:12 PCN Allergy Unknown Anaphylaxis Uncoded 11/07/24 20:12 Percocet Allergy Unknown Rash Uncoded 11/07/24 20:12 Review of Systems 2 Review of Systems: Yes all other systems are reviewed and are negative [facility] Past Medical History Attestation statement: The following information was validated with the patient. Source: old records reviewed Medical History Hypersomnia Loud snoring Diplopia Annual physical exam Normal Pap smear Hyperlipidemia POTS (postural orthostatic tachycardia syndrome) Migraine Hidradenitis suppurativa HTN (hypertension) MDD (major depressive disorder) Psoriasis IBS (irritable bowel syndrome) Palpitation Type 2 diabetes mellitus Surgical History Hx of cholecystectomy History of liver biopsy Family History Family History Father Diabetes HTN (hypertension) Mother Multiple sclerosis Social History Social History Household Members Other:: Student for respiratory therapy. Two children 11 and 18-year-old Housing: House Alcohol intake: current Alcohol intake frequency: does not drink Patient Tobacco Use Status: Former Tobacco user Smoked in Last 30 Days: No e-Cigarette/Vaping Use: Never Used Use of substances other than those prescribed or required for medical reasons: No Advance Directives: No Advance Directives Information Provided: No service: No Current occupational status: unemployed Cognitive needs: No Hearing needs: No Vision needs: No Physical Exam ED Vital Signs: Vital Signs - 24 hr 11/07/24 20:09 Temperature 97.9 F Pulse Rate 81 Respiratory Rate 16 Blood Pressure 140/84 H Pulse Oximetry 100 Oxygen Delivery Method Room Air BMI result Body Mass Index 32.5 Appearance: Alert.?Oriented to person, place and time. No acute distress.?Normal affect. CVS: Heart sounds normal. Normal heart rate and rhythm.? Pulses normal.?? Respiratory: No respiratory distress.? Lung sounds clear to auscultation bilaterally?? Skin: Skin warm and dry.? Normal skin color.? Examination of the left breast was performed with scallop binder ED RN. In the fold beneath the left breast, there is a 0.25 cm abscess that has opened, has a very small amount of bloody drainage at this time no purulence. There is too surrounding areas of very firm induration and surrounding erythema of the overlying skin without fluctuance Extremities: No lower extremity edema.? Neuro: Moves all extremities spontaneously. Sensation intact bilaterally. Ambulates with normal steady gait. Course Course Course Narrative: RME: 39-year-old female with severe hidradenitis presents to the ED for hidradenitis exacerbation under left breast that is open and drainage with redness. Patient is usually follow up with telemetry tech every 6 weeks for infusion due to severe hidradenitis. Patient states that is no appointment available until March. Labs ordered Medical Decision Making Medical Decision Making MDM Narrative: Patient is a 39-year-old female with past medical history of hidradenitis for which she is undergoing clinical treatment with Remicade presenting for concern for abscess beneath the left breast fold as per HPI, pertinent physical exam findings as per PE portion of this note. Reviewed with patient, at this time did not feel as though there is anything amenable to incision and drainage or even needle aspiration at this time given the significant induration currently present, given the overlying erythema IM concern for localized cellulitis to the area. She states that she has had a bad reaction to doxycycline in the past resulting in her having very severe anxiety and panic attacks after having been on it for so long. She states that typically clindamycin is beneficial for her if she has any abscess/flare. She received the 1st dose in the emergency department and prescription was sent to the pharmacy. She is without signs of systemic toxicity afebrile in no tachycardia. CBC is without leukocytosis or left shift. Chemistries overall unremarkable. She is stable for discharge outpatient follow-up with her doctors and strict return precautions were discussed Differential Diagnosis Differential Diagnoses: The differential diagnosis associated with the presentation includes (See narrative above) Lab Data MDM Lab Attestation statement: I reviewed the patient's lab results. (See narrative above) 11/07/24 20:32 11/07/24 20:32 Labs: Lab Results 11/07/24 Range/Units 20:32 WBC 10.7 (4.8-10.8) X10*3/uL RBC 4.45 (4.20-5.50) X10*6/uL Hgb 13.7 (12.0-16.0) g/dl Hct 39.6 (37.0-47.0) % MCV 89.0 (80.0-98.0) fL MCH 30.8 (27.0-33.0) pg MCHC 34.6 (31.0-35.0) g/dl RDW 13.1 (11.0-16.0) % Plt Count 276 (160-400) X10*3/uL MPV 12.2 (9.4-12.3) fL Absolute Nucleated RBC 0.000 (0.0-0.012) X10*3/uL Nucleated RBC % (auto) 0.0 (0.0-0.2) /100WBC Sodium 139 (135-145) mmol/L Potassium 3.8 (3.3-5.1) mmol/L Chloride 107 (96-108) mmol/L Carbon Dioxide 23 (22-29) mmol/L Anion Gap 13 (12-20) BUN 15 (9-16) mg/dL Creatinine 1.03 (0.5-1.4) mg/dL Estim Creat Clear Calc 85.4 Estimated GFR 59 Random Glucose 189 H (60-115) mg/dL Calcium 9.3 (8.4-10.2) mg/dL Total Bilirubin 0.3 (0.0-1.0) mg/dL AST 25 (5-31) U/L ALT 24 (0-31) U/L Alkaline Phosphatase 79 (39-117) U/L Total Protein 8.2 H (6.5-8.0) g/dL Albumin 4.1 (3.5-5.0) g/dL Independent Historian Clinical information obtained from an independent historian. History obtained from or confirmed by: Spouse External Record Review External record reviewed: Outpatient record Prescription Management I considered prescription management with: Antibiotic Discharge Plan Discharge Clinical Impression: Hidradenitis suppurativa Patient Disposition: Home, Self-Care Instructions: Hidradenitis Suppurativa (ED) Prescriptions: New clindamycin HCl 300 mg capsule 300 mg PO TID 5 Days Qty: 15 0RF No Action propranolol 160 mg capsule,extended release 24 hr 160 mg PO DAILY Qty: 90 3RF (DME) Omnipod Dash 5 Pack Pod Cartridge See Rx Instructions subcut .MEDSUPPLY Qty: 5 Rx Instructions: As directed insulin lispro 100 unit/mL solution subcut (DME) Omnipod Dash Pods (Gen 4) Cartridge See Rx Instructions subcut .MEDSUPPLY Qty: 5 Rx Instructions: As directed pyridostigmine bromide 30 mg tablet 30 mg PO TID Qty: 90 0RF (DME) MuSK antibody levels See Rx Instructions .Route .MEDSUPPLY Qty: 1 0RF Rx Instructions: As directed norethindrone (contraceptive) 0.35 mg tablet 0.35 mg PO DAILY spironolactone 100 mg tablet 100 mg PO DAILY Jardiance 10 mg tablet 10 mg PO DAILY infliximab [Remicade] 100 mg recon soln IV Referrals: Linda Toney MD [Primary Care Provider] - Print Language: [place] Islander
[2024-11-07 20:56] LABS: Alanine Aminotransferase 24 U/L (0-31); Albumin Level 4.1 g/dL (3.5-5.0); Alkaline Phosphatase 79 U/L (39-117); Anion Gap 13 (12-20); Aspartate Amino Transferase 25 U/L (5-31); Bilirubin Total 0.3 mg/dL (0.0-1.0); Blood Urea Nitrogen 15 mg/dL (9-16); Calcium 9.3 mg/dL (8.4-10.2); Carbon Dioxide 23 mmol/L (22-29); Chloride 107 mmol/L (96-108); Creatinine Clr Calc Pharmacy 85.4; Estimated Glomerular Filt Rate 59; Glucose Random 189 mg/dL (60-115); Potassium 3.8 mmol/L (3.3-5.1); Sodium 139 mmol/L (135-145); Total Protein 8.2 g/dL (6.5-8.0)
[2024-11-07 20:58] LABS: Hematocrit 39.6 % (37.0-47.0); Hemoglobin 13.7 g/dl (12.0-16.0); Mean Corpuscular HGB Conc 34.6 g/dl (31.0-35.0); Mean Corpuscular Hemoglobin 30.8 pg (27.0-33.0); Mean Platelet Volume 12.2 fL (9.4-12.3); Platelet Count 276 X10*3/uL (160-400); Red Blood Count 4.45 X10*6/uL (4.20-5.50); Red Cell Distribution Width 13.1 % (11.0-16.0); White Blood Count 10.7 X10*3/uL (4.8-10.8)
[2024-11-08 00:53] VITALS: BP 140/84; PULSE 81; RESP 16; TEMP 36.6; O2SAT 100
== END 2024-11-08 00:54 | disposition home or self-care (01) ==
PROVIDERS: Emergency Provider Emergency Medicine Emergency Medical Services; PCP Internal Medicine
DX: L73.2 Hidradenitis suppurativa (principal)
CPT/HCPCS: 36415; 80053; 85027; 99283; 99284

== ENCOUNTER 2024-11-17 07:40 | Outpatient (AMB) | payer OTHER, SELFPAY ==
--- NOTE | 2024-11-17 07:42 | MHC.OFFVIS ---
Vital Signs 11/17/24 07:43 Height 5 ft 7 in Weight 202 lb BMI 31.6 BP 112/80 Blood Pressure Location Rt brachial Position Sitting Intake Visit Reasons: follow up Ptosis of left eyelid Intake Note: patient following up MUSK test ordered 01/13/24 Allergies sulfamethoxazole [From Bactrim] Allergy (Mild, Verified 11/17/24 07:45) RASH trimethoprim [From Bactrim] Allergy (Mild, Verified 11/17/24 07:45) RASH oxycodone Allergy (Unknown, Verified 11/17/24 07:45) hives rash penicillin V Allergy (Unknown, Verified 11/17/24 07:45) hives, rash Sulfa (Sulfonamide Antibiotics) Allergy (Unknown, Verified 11/17/24 07:45) rash amoxicillin [Amoxicillin] Adverse Reaction (Mild, Verified 11/17/24 07:45) CANT FEEL LEGS Adhesive tape Allergy (Unknown, Uncoded 11/17/24 07:45) Rash Bactrim Allergy (Unknown, Uncoded 11/17/24 07:45) Anaphylaxis From PERCOCET Allergy (Unknown, Uncoded 11/17/24 07:45) RASH PCN Allergy (Unknown, Uncoded 11/17/24 07:45) Anaphylaxis Percocet Allergy (Unknown, Uncoded 11/17/24 07:45) Rash HPI Comments Details: 39y/o female comes for follow up of left eyelid drooping . Her MRI MRA brain were normal.all her anti MUSK ACH antibodies were negative. she started noticing droopy left eye about 2 1/2 months ago . she also has double vision on and off . It is worse with bright light.she denies pain.No worsening sincs last visit . her diabetes is under control with recent HgA1C at 6.2 she has h/o diabetes - over 20 years , has insulin pump she denies head injury or headaches. she had carotid doppler which showed minimal disease on the right. she denies numbness or tingling in her face. Denies speech problems, denies vertigo , tongue numbness or dysphagia. she has loud snoring with frequent arousals and daytime sleepiness- sleep study was normal in 2022 [facility] Medical History Hypersomnia Loud snoring Diplopia Annual physical exam Normal Pap smear Hyperlipidemia POTS (postural orthostatic tachycardia syndrome) Migraine Hidradenitis suppurativa HTN (hypertension) MDD (major depressive disorder) Psoriasis IBS (irritable bowel syndrome) Palpitation Type 2 diabetes mellitus Surgical History Hx of cholecystectomy History of liver biopsy Family History Father Diabetes HTN (hypertension) Mother Multiple sclerosis Social History Household Members Other:: Student for respiratory therapy. Two children 11 and 18-year-old Housing: House Alcohol intake: current Alcohol intake frequency: does not drink Patient Tobacco Use Status: Former Tobacco user e-Cigarette/Vaping Use: Never Used service: No Current occupational status: unemployed Cognitive needs: No Hearing needs: No Vision needs: No Physical Exam Vital Signs: Last Vital Signs BP 112/80 11/17/24 07:43 BMI result Body Mass Index 31.6 Const General: cooperative, healthy appearing and comfortable Nutritional Appearance: overweight Orientation/consciousness: patient oriented x3 Eyes Pupils: Equal, round and reactive pupils present Neck Neck: Yes no meningeal signs Neuro Other: left eye partial ptosis, no diplopia , no nystagmus General: patient oriented x3, no meningeal signs and no focal motor deficits Cranial nerves: Yes Facial sensation intact/muscles of mastication intact, Yes Equal, round and reactive pupils present, Yes Bilaterally intact EOM present, Yes Nystagmus not present and Yes Normal facial strength present Cognition (Neuro): normal cognition Gait exam (Neuro): Normal gait present Motor exam (neuro): 5/5 motor strength present throughout, Normal motor muscle tone present throughout and Motor abnormalities not present Coordination: [id number] test normal and [id number]-[id number] test normal Pupils: Normal pupillary reactivity/response: right and left Psych Appearance: grossly normal Assessment & Plan Assessment & Plan (1) Ptosis of eyelid, left: Comment: ? 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 she did not trial pyridostigmine( insurance did not approve) diabetes might be contributing to 3 rd nerve paresis. Her recent HgA1C A 1 C is 6.2 discussed about good diabetes control Discussed about monitoring and will follow up if she worsens Snoring- suggested breath easy or breath right nasal strips . Coding Level of Care Code Est Pt Level 4 (40732) Complex EM visit Add On G2211 Diagnoses Ptosis of eyelid, left H02.402 Diplopia H53.2
[2024-11-17 07:43] VITALS: BP 112/80; BMI 31.6
--- OUTSIDE RECORDS SUMMARY | 2024-11-17 07:43 | XMS_ITS | Clinical Summary ---
Author Organization [facility] Address [address] [place] [address] Care Team Providers Care Fitness Trainer Name Role Phone Linda Toney Primary Care Provider [phone] Allergies Active Allergy Reactions Criticality Noted Date Comments Amoxicillin Hives,Itching,Rash Low 12/27/2015 Clindamycin Unknown 05/13/2024 Oxycodone Nausea And Vomiting 07/24/2017 GI upset Oxycodone-Acetaminophen Headache,Hives,L ighthead edness,Palpitations,Rash Low 01/28/2023 Penicillin Hives 01/28/2023 Sulfamethoxazole-Trimethopr im Dyspnea,Fatigue,Hives,Ra sh,Unknown High 12/27/2015 Medications camille peroxid/hydrocor t/ (CAMILLE PEROX-HC & CLEANSER NO.14 TOP) 09/16/2023 Active benzoyl peroxide 10% cleanser SMARTSIG:To pical Daily 03/17/2024 Active blood-glucose meter,continuous (Dexcom G7 Tire Buffer) misc by Other route once daily as needed. 05/10/2024 Active blood-glucose sensor (Dexcom G6 Sensor) device 1 each by Other route. 04/21/2024 Active cyclobenzaprine (FLEXERIL) 10 mg tablet SMARTSI Tablet(s) By Mouth Every Night 09/14/2023 Active insulin lispro protamin-lispro (HumaLOG Mix 50-50 Insuln U-100) 100 unit/mL (50-50) suspension 08/17/2003 Active Active Problems Problem Noted Date Diagnosed Date [...] Dx 07/2022 followed by retina specialist in [place]. Left eye ptosis and intermittent double vision since 2022-followed by Dr. Rock at [facility] neuro. Right carotid stenosis. Resolved Problems Problem Noted Date Diagnosed Date Resolved Date Disease due to severe acute respiratory syndrome coronavirus 2 (SARS-CoV-2) 02/22/202209/04 Overview (09/29/2024): Problem added by Discern Expert Encounters Date Type Department Care Team Description 11/14/2024 myChart Message [facility] [address], [place] [phone] Fagot Heater Helper: Kelsy Castro MD [facility] and office notes 11/11/2024 Telephone [facility] [address] [place] [address], [place] [phone] Fagot Heater Helper: Danielle Neal LPN 11/10/2024 3:00 PM EDT Office Visit [facility] [address] [place] [address], [place] [phone] Fagot Heater Helper: Kelsy Castro, MD 11/07/2024 Telephone [facility] [address] [place] [phone] Fagot Heater Helper: Gabriela Garcia MD PAC Patient Request Call Back 11/04/2024 Telephone [facility] [address] [place] [phone] Fagot Heater Helper: Karo [facility] 10/20/2024 2:00 PM EDT Infusion [facility] Infusion [address] [id number] Kelsy Gibson MD Zacharia, An, RN Hidradenitis suppurativa of multiple sites (Primary Dx) 09/29/2024 3:00 PM EDT Office Visit [facility] [address] [place] [phone] Fagot Heater Helper: Kelsy Castro MD Hidradenitis suppurativa (Primary Dx) 09/29/2024 Telephone [facility] [address] [place] [phone] Fagot Heater Helper: Gabriela Garcia MD 09/15/2024 Telephone [facility] [address] [place] [phone] Fagot Heater Helper: Jazmine Baum MD 09/08/2024 2:00 PM EST Infusion [facility] [address] [place] [id number] Kelsy Gibson MD Johnson, Jennifer A, RN Hidradenitis suppurativa (Primary Dx) 09/06/2024 Orders Only [facility] [address] [place] [address] Reba Leija, PharmD from Last 3 Months Immunizations Immunization Administration [...] Sign Reading Time Taken Comments Blood Pressure 120/74 10/20/2024 2:17 PM EDT Pulse 88 10/20/2024 2:17 PM EDT Temperature 36.8 ??C (98.2 ??F) 10/20/2024 2:17 PM ED T Respiratory Rate 20 10/20/2024 2:17 PM EDT Oxygen Saturation 98% 10/20/2024 2:17 PM EDT Inhaled Oxygen Concentration - - Weight 93.1 kg (205 lb 3.2 oz) 11/10/2024 2:42 P M EDT Height 169.1 cm (5' 6.58 ) 06/30/2024 1:59 PM ES T Body Mass Index 32.55 06/30/2024 1:59 PM EST Plan of Treatment Upcoming Encounters Date Type Department Care Team (Late st Contact Info) Description 12/01/2024 2:00 PM EDT Infusion [facility] [address] [place], [place] [phone] Kelsy Gibson MD [address] [place], [place] [phone] 03/09/2025 1:00 PM EDT Office Visit [facility] 4th Floor [address] [facility], [place] [phone] Fagot Heater Helper: Kelsy Castro MD [address] [place] [address] Health Maintenance Due Date Last Done Comments Cervical Cancer Screening 1984 HPV and Pap Smear 1984 Pap Smear 1984 Ophthalmology Exam 01/04/1994 Urine Microalbumin 01/04/1994 Varicella Vaccines (1 of 2 - 13+ 2-dose series) 01/04/1997 Hepatitis B Vaccines (1 of 3 - 19+ 3-dose series) 01/04/2003 Pneumococcal Vaccine: Pediat andrea (0-5 Years) and At-Risk Patients (6-50 Years) (1 of 2 - PCV) 01/04/2003 COVID-19 Vaccine (2023-2 5 season) 2024 11/03/2020, 10/04/2020, 09/07/2020, Additional history exists Alcohol/Substance Use Screening 07/06/2024 Depression Screening and Follow-Up 07/06/2024 Social Drivers of Health Chandni ual Screening 07/06/2024 Influenza Vaccine (Season Ended) 2025 04/15/2021, 03/29/2020, 06/06/2019, Additional history exists Hemoglobin A1C 04/30/2025 10/29/2024, 01/04, 11/06/2023, Additional history exists Basic Metabolic Panel 10/29/2025 10/29/2024, 024 Mammogram 2026 01/06/2024, 12/12/2021 DTaP,Tdap,and Td Vaccines (2 - Td or Tdap) 01/14/2032 01/13/2022 RSV Vaccine (60+ years old a nd patients) (1 - 1-dose 75+ series) 01/04/2059 HIV Screening Completed 05/13/2024 Hepatitis C Screening Completed 05/13/2024 Procedures * Due to [place] [employer] law, this organization might not be sharing negative HIV tests. Procedure Name Priority Date/Time Associated Diagnosis Comments HEPATITIS C ANTIBODY W/REFLEX TO HCV RNA, QUANTITATIVE PCR Routine 05/13/2024 9:42 AM EST High risk medication use HM MAMMOGRAPHY, BILATERAL 01/06/2024 from Last 3 Months or Most Recently Relevant to Health Maintenance Results * Due to [place] [employer] law, this organization might not be sharing negative HIV tests. * Hepatitis C Antibody w/Reflex to HCV RNA, Quantitative PCR (05/13/2024 9:42 AM EST) Hepatitis C Antibody NON-REACT RIVKA NON-REACT RIVKA 05/13/2024 7:42 PM EST [employer] Comment: HCV antibody was non-reactive. There is no laboratory evidence of HCV infection. In most cases, no further action is required. However, if recent HCV exposure is suspected, a test for HCV RNA (test code 39592) is suggested. For additional information please refer to http://education.GoFish/faq/SAS80q2 (This link is being provided for informational/ educational purposes only.) Blood Structure of peripheral vein / Unknown Venipuncture / Unknown 05/13/2024 9:42 AM EST 05/13/2024 9:42 AM EST Narrative [facility] - 05/13/2024 7:42 PM EST [facility] Received Date: Kelsy Gibson MD LAB BLOOD ORDERABLES Final R esult [facility] [address] [facility] [address], [place] [address], [place] [phone] [employer] [address] [facility] 3rd Floor, [place] [address], [place] [phone] * HM Mammography, Bilateral (01/06/2024) Anatomical Region Laterality Modality Other 01/06/2024 us Onbase Scan [facility] Final Resu lt from Last 3 Months or Most Recently Relevant to Health Maintenance Insurance [facility] Care Teams Fitness Trainer Relationship Specialty Start Date End Date Linda Toney [address] [place] [address] PCP - General Internal Medicine 03/25/24
--- OUTSIDE RECORDS SUMMARY | 2024-11-17 07:43 | XMS_ITS | Encounter Summary ---
Author Organization [facility] Address [address] [place] [address] Care Team Providers Care Camera Repair Technician Name Role Phone Linda Toney Primary Care Provider [phone] Encounter Details Date Type Department Care Team (Late st Contact Info) Description 11/14/2024 myChart Message [facility] [address] [place] [phone] Tax Accountant: Kelsy Castro MD [address] [place] [phone] [employer] and office notes Social History Tobacco Use Types Packs/Day Years [...] Info) Description 12/01/2024 2:00 PM EDT Infusion [facility] [address] [place] [phone] Kelsy Gibson MD [address] [place] [phone] 03/09/2025 1:00 PM EDT Office Visit [facility] 4th Floor [address] [facility] [place] [phone] Tax Accountant: Kelsy Castro MD [address] [place] [address] documented as of this encounter Visit Diagnoses Not on filedocumented in this encounter Care Teams Camera Repair Technician Relationship Specialty Start Date End Date Linda Toney [address] [place] [address] PCP - General Internal Medicine 03/25/24 documented as of this encounter
--- OUTSIDE RECORDS SUMMARY | 2024-11-17 07:43 | XMS_ITS | Encounter Summary ---
Author Organization [facility] Address [address] [place] [address] Care Team Providers Care Rabbit Dresser Name Role Phone Linda Toney Primary Care Provider [phone] Encounter Details Date Type Department Care Team (Late st Contact Info) Description 11/11/2024 Telephone [facility] [address]th [address] [place] [address] [phone] Film Numberer: Danielle Neal LPN Social History Tobacco Use Types Packs/Day Years [...] Info) Description 12/01/2024 2:00 PM EDT Infusion [facility] [address] [place] [address] Kelsy Gibson MD [address] [place] [address] [phone] 03/09/2025 1:00 PM EDT Office Visit [facility] 4th [address] [place] [address] [phone] Film Numberer: Kelsy Castro MD [address] [place] [address] documented as of this encounter Visit Diagnoses Not on filedocumented in this encounter Care Teams Rabbit Dresser Relationship Specialty Start Date End Date Linda Toney [address] [place] [address] PCP - General Internal Medicine 03/25/24 documented as of this encounter
--- OUTSIDE RECORDS SUMMARY | 2024-11-17 07:43 | XMS_ITS | Referral Summary ---
Author Organization [facility] Address [address] [place] [address] Care Team Providers Care Implementation Lead Name Role Phone Linda Toney Primary Care Provider [phone] Encounters Date Type Department Care Team Description 11/14/2024 myChart Message [facility] [address] [place] [phone] Shop Manager: Kelsy Castro MD [facility] and office notes 11/11/2024 Telephone [facility] [address] [phone] Shop Manager: Danielle Neal LPN 11/10/2024 3:00 PM EDT Office Visit [facility] [address] [phone] Shop Manager: Kelsy Castro MD 11/07/2024 Telephone [facility] [address] [phone] Shop Manager: Gabriela Garcia MD PAC Patient Request Call Back 11/04/2024 Telephone [facility] [address] [place] [phone] Shop Manager: Karo Cain [facility] 10/20/2024 2:00 PM EDT Infusion [facility] [address] [place] [address] Kelsy Gibson MD Zacharia, An, RN Hidradenitis suppurativa of multiple sites (Primary Dx) 09/29/2024 Telephone [facility] [address] [phone] Shop Manager: Gabriela Garcia MD 09/29/2024 3:00 PM EDT Office Visit [facility] [address] [place] [address] [phone] Shop Manager: Kelsy Castro MD Hidradenitis suppurativa (Primary Dx) 09/15/2024 Telephone [facility] [address] [place] [phone] Shop Manager: Jazmine Baum MD 09/08/2024 2:00 PM EST Infusion [facility] [address] [place] [address] Kelsy Gibson MD Johnson, Jennifer A, RN Hidradenitis suppurativa (Primary Dx) 09/06/2024 Orders Only [facility] [address] [place] [address] Reba Leija, PharmD from Last 3 Months Allergies Active Allergy [...] Daily 03/17/2024 Active blood-glucose meter,continuous (Dexcom G7 Noxious Weeds And Pest Inspector) misc by Other route once daily as [...] Dx 07/2022 followed by retina specialist in [place]. Left eye ptosis and intermittent double vision since 2022-[place]. [place] [facility] [place]. Right carotid stenosis. Resolved Problems Problem Noted Date Diagnosed Date Resolved Date Disease due to severe acute respiratory syndrome coronavirus 2 (SARS-CoV-2) 02/22/202209/04/2025 Overview (09/29/2024): Problem added by Discern Expert [...] Info) Description 12/01/2024 2:00 PM EDT Infusion [facility] [address] [place] [address] Kelsy Gibson MD [address] [place] [address] 03/09/2025 1:00 PM EDT Office Visit [facility] 4th Floor [address] [facility], [place] [phone] Shop Manager: Kelsy Castro MD [address] [place] [address] Procedures * Due to [place] [employer] law, this organization might not be sharing negative HIV tests. Procedure Name Priority Date/Time Associated Diagnosis Comments HEPATITIS C ANTIBODY W/REFLEX TO HCV RNA, QUANTITATIVE PCR Routine 05/13/2024 9:42 AM EST High risk medication use HM MAMMOGRAPHY, BILATERAL 01/06/2024 from Last 3 Months or Most Recently Relevant to Health Maintenance Results * Due to [place] [employer] law, this organization might not be sharing negative HIV tests. * Hepatitis C Antibody w/Reflex to HCV RNA, Quantitative PCR (05/13/2024 9:42 AM EST) Hepatitis C Antibody NON-REACT RIVKA NON-REACT RIVKA 05/13/2024 7:42 PM EST [facility] Comment: HCV antibody was non-reactive. There is no laboratory evidence of HCV infection. In most cases, no further action is required. However, if recent HCV exposure is suspected, a test for HCV RNA (test code 89327) is suggested. For additional information please refer to http://education.Workspace.Social Shop/faq/AVB71f9 (This link is being provided for informational/ educational purposes only.) Blood Structure of peripheral vein / Unknown Venipuncture / Unknown 05/13/2024 9:42 AM EST 05/13/2024 9:42 AM EST Narrative [facility] [place] - 05/13/2024 7:42 PM EST [facility] Received Date: us Kelsy Gibson MD LAB BLOOD ORDERABLES Final R esult [facility] [address], [place] [address], [place] [phone] [employer] [facility] [address] [facility] [address]rd Floor, [place] [address], [place] [phone] * HM Mammography, Bilateral (01/06/2024) Anatomical Region Laterality Modality Other 01/06/2024 us Onbase Scan [facility] Final Resu lt from Last 3 Months or Most Recently Relevant to Health Maintenance Insurance [facility] Care Teams Implementation Lead Relationship Specialty Start Date End Date Linda Toney [address] [place] [address] PCP - General Internal Medicine 03/25/24
--- OUTSIDE RECORDS SUMMARY | 2024-11-17 07:43 | XMS_ITS | Clinical Summary ---
Author Organization [facility] Address [address] [place] [address] Care Team Providers Care Receptionist Doctor'S Office Name Role Phone Raul Titus MD Primary Care Provider [phone] Surgical History Surgery Date Site/Laterality Comments CHOLECYSTECTOMY PROCEDURE:CHOLECYSTECTOMY DENTAL SURGERY PROCEDURE:DENTAL SURGERY INGUINAL HIDRADENITIS EXCISION 07/27/2017 Left PROCEDURE:INGUINAL HIDRADENITIS EXCISION;COMMENT:Procedure: EXCISION HIDRADENITIS INGUINAL LEFT; Surgeon: Josie Rivera MD; Location: [facility] MAIN OPERATING ROOM; Service: General; Laterality: Left; [...] age to complete this topic Care Teams Receptionist Doctor'S Office Relationship Specialty Start Date End Date Raul Titus MD [address] [place] [address] Dr [address] MAYRA José PCP - General 07/24/17
--- OUTSIDE RECORDS SUMMARY | 2024-11-17 07:44 | XMS_ITS | Encounter Summary ---
Author Organization [facility] Address [address] [place] [address] Care Team Providers Care Teaching Aide Name Role Phone Linda Toney Primary Care Provider [phone] Encounter Details Date Type Department Care Team (Late st Contact Info) Description 09/06/2024 Orders Only [facility] [address] [place] [address] Reba Leija, PharmD Social History Tobacco Use [...] Info) Description 12/01/2024 2:00 PM EDT Infusion [facility] [address] [place] [address] Kelsy Gibson MD [address] [place] [address] 03/09/2025 1:00 PM EDT Office Visit [facility] [address]th [address] [place] [address], Fourth [place] [phone] Molder Pipe Covering: Kelsy Castro MD [address] [place] [address] documented as of this encounter Visit Diagnoses Not on filedocumented in this encounter Care Teams Teaching Aide Relationship Specialty Start Date End Date Linda Toney [address] [place] [address] PCP - General Internal Medicine 03/25/24 documented as of this encounter
--- OUTSIDE RECORDS SUMMARY | 2024-11-17 07:44 | XMS_ITS | Encounter Summary ---
Author Organization [facility] Address [address] [place] [address] Care Team Providers Care Coroner/Medical Examiner Name Role Phone Linda Toney Primary Care Provider [phone] Encounter Details Date Type Department Care Team (Late st Contact Info) Description 11/04/2024 Telephone [facility] 4th Floor [address] [facility], Fourth [place] [phone] Production Drilling Machine Operator: [facility] Social History Tobacco Use Types Packs/Day Years Used Date Smoking Tobacco: Never Assessed Comments Unknown Sex and Gender Information Value Date Recorded Sex Assigned at Female 03/25/2024 10:38 AM EDT Legal Sex Female 10:33 AM EDT Gender Identity Female 05/08/2024 3:54 PM EST Sexual Orientation Straight 05/08/2024 3: 54 PM EST documented as of this encounter Miscellaneous Notes * Telephone Encounter - Shonda Dolan LPN - 11/04/2024 11:48 AM EDT Called reanna back, called patient as well New PA to be submitted for 1 dose as pt is terming out of [facility] on 12/02/24 On December 04 we will need to resubmit under new primary insurance Pt needs to update us on insurance information at that time * Telephone Encounter - Tania Sifuentes - 11/04/2024 10:53 AM EDT Hi Reanna Merchant is returning your call regarding the frequency of patients infusion? Please call back to discuss, best contact is [phone]. Thank you documented in this encounter Plan of Treatment Upcoming Encounters Date Type Department Care Team (Late st Contact Info) Description 12/01/2024 2:00 PM EDT Infusion [facility] [address] [place] [address] Kelsy Gibson MD [address] [place] [address] 03/09/2025 1:00 PM EDT Office Visit [facility] 4th [address] [place] [address], Fourth [place] [phone] Production Drilling Machine Operator: Kelsy Castro MD [address] [place] [phone] documented as of this encounter Visit Diagnoses Not on filedocumented in this encounter Care Teams Coroner/Medical Examiner Relationship Specialty Start Date End Date Linda Toney [address] [place] [address] PCP - General Internal Medicine 03/25/24 documented as of this encounter
--- OUTSIDE RECORDS SUMMARY | 2024-11-17 07:44 | XMS_ITS | Encounter Summary ---
Author Organization [facility] Address [address] [place] [address] Care Team Providers Care Plaster Mixer Name Role Phone Linda Toney Primary Care Provider [phone] Reason for Visit * Reason Onset Date Comments PAC Patient Request Call Back 11/07/2024 Encounter Details Date Type Department Care Team (Late st Contact Info) Description 11/07/2024 Telephone [facility] 4th [address] [place] [address], [place] [phone] Lactation Consultant: Gabriela Garcia MD [address] [place] [address] [place] [address] PAC Patient Request Call Back Social History Tobacco Use Types Packs/Day Years [...] Telephone Encounter - Shonda Dolan LPN - 11/16/2024 8:47 AM EDT Seen in office Waiting on fax from [facility] regarding breast imaging * Telephone Encounter - Gabriela Rollins MD - 11/09/2024 11:01 AM EDT Called patient to discuss flare. She states she has three tender draining nodules under her right breast. After she called on Mondayshe ended up going to the ED and they gave her a three day course of minocycline. She does not takedoxycyline because she gets anxiety with this medication. Mely now has an appointment tomorrow for flare. We will plan on intralesional triamcinolone and further flare treatment tomorrow during her visit. * Telephone Encounter - Kristyn Mcclendon LPN - 11/09/2024 10:55 AM EDT Spoke with patient, apt scheduled with Dr. Gibson, 11/10/24 at 3p. Patient c/o HS flare left breast,received another call from [facility] during call, patient spoke with Dr. Rollins and was discussed to have ILK injections tomorrow, patient states was instructed by MD on mgmt of HS flare. * Telephone Encounter - Umm Alvarez - 11/07/2024 3:27 PM EDT [facility] called stating they having extended the patients expiration date for her Q5103 Inflectra (infliximab-dyyb) to 12/02/2024 and added 1 more dose. * Telephone Encounter - Monika Montanez - 11/07/2024 1:53 PM EDT Soonest appt scheduled. Patient added to wait list. Will reach out to patient if there is a sooner appointment. * Telephone Encounter - Caterina Karimi - 11/07/2024 1:32 PM EDT Patient calling to schedule an appointment for HS, She was last seen by Kelsy Gibson for the same reason for visit. She mentioned she is having a flare up with severe pain. PAC unable to schedule, Requests TE be sent to clinic. Please contact patient to schedule at [phone] Anytime of the day is great documented in this encounter Plan of Treatment Upcoming Encounters Date Type Department Care Team (Late st Contact Info) Description 12/01/2024 2:00 PM EDT Infusion [facility] [address] [place] [address] Kelsy Gibson MD [address] [place] [address] 03/09/2025 1:00 PM EDT Office Visit [facility] 4th Floor [address] [place] [address], [place] [phone] Lactation Consultant: Kelsy Castro MD [address] [place] [address] documented as of this encounter Visit Diagnoses Not on filedocumented in this encounter Care Teams Plaster Mixer Relationship Specialty Start Date End Date Linda Toney [address] [place] [address] PCP - General Internal Medicine 03/25/24 documented as of this encounter
--- OUTSIDE RECORDS SUMMARY | 2024-11-17 07:44 | XMS_ITS | Clinical Summary ---
Author Organization [facility] Address [address] [place] [address] Care Team Providers Care Coin Machine Supervisor Name Role Phone Raul Titus Primary Care Provider [phone] Allergies Active Allergy Reactions Criticality Noted Date [...] age to complete this topic Care Teams Coin Machine Supervisor Relationship Specialty Start Date End Date Raul Titus DO [address] [facility] [place] [address] PCP - General 07/24/17
== END 2024-11-17 08:03 | disposition home or self-care (01) ==
LOC: HO.HSMS 07:41
PROVIDERS: PCP Internal Medicine; Visit Provider Psychiatry & Neurology Neurology
DX: H02.402 Unspecified ptosis of left eyelid (principal); H53.2 Diplopia
CPT/HCPCS: 99214

== ENCOUNTER 2025-02-28 08:35 | Outpatient (REF) | payer OTHER, SELFPAY ==
--- NOTE | ~2025-02-28 | XR_ITS ---
EXAMINATION: XR SINUSES CLINICAL INFORMATION: J34.89 - Other specified disorders of nose and nasal sinuses COMPARISON: None available. TECHNIQUE: 3 views of the sinuses were obtained. FINDINGS: The paranasal sinuses are normally pneumatized without evidence of air-fluid levels or gross opacification. There is mild right nasal septal deviation. The orbits are intact. The mastoids are grossly aerated. The calvarium appears intact. The sella is normal in size. There is no soft tissue abnormality. XR/XR sinus min 3V IMPRESSION: 1. No radiographic evidence of significant paranasal sinus disease. 2. Sinus CT is more sensitive and specific if felt warranted. Electronically signed by: Vic Ruby MD 02/28/2025 01:23 PM EDT
== END 2025-02-28 08:36 | disposition home or self-care (01) ==
LOC: HO.HMGCX 08:35
PROVIDERS: PCP Internal Medicine; Visit Provider Internal Medicine
DX: Z00.00 Encounter for general adult medical examination without abnormal findings (principal); J34.89 Other specified disorders of nose and nasal sinuses; J32.9 Chronic sinusitis, unspecified; I49.8 Other specified cardiac arrhythmias; E78.5 Hyperlipidemia, unspecified; E11.9 Type 2 diabetes mellitus without complications; Z79.4 Long term (current) use of insulin
CPT/HCPCS: 70220; 83036; 99396

== ENCOUNTER 2025-02-28 08:35 | Outpatient (AMB) | payer OTHER, MEDICAID, SELFPAY ==
[2025-02-28 08:44] VITALS: BP 112/80; PULSE 84; RESP 15; TEMP 36.7; O2SAT 98; BMI 31.3
--- NOTE | 2025-02-28 08:44 | A.OFFPC_ITS ---
Vital Signs 02/28/25 08:44 Height 5 ft 7 in Weight 200 lb BMI 31.3 BP 112/80 Blood Pressure Location Rt brachial Position Sitting Respiration 15 Pulse 84 Pulse Source Pulse Oximeter Temp 98.0 F Temp Source Oral Pulse Oximetry (%) 98 Oxygen Delivery Method Room Air Intake Visit Reasons: Annual Intake Note: Pt is here today for her PE Allergies sulfamethoxazole (From Bactrim) Allergy (Mild, Verified 02/28/25 08:50) RASH trimethoprim (From Bactrim) Allergy (Mild, Verified 02/28/25 08:50) RASH oxycodone Allergy (Unknown, Verified 02/28/25 08:50) hives rash penicillin V Allergy (Unknown, Verified 02/28/25 08:50) hives, rash Sulfa (Sulfonamide Antibiotics) Allergy (Unknown, Verified 02/28/25 08:50) rash amoxicillin (Amoxicillin) Adverse Reaction (Mild, Verified 02/28/25 08:50) CANT FEEL LEGS Adhesive tape Allergy (Unknown, Uncoded 02/28/25 08:50) Rash Bactrim Allergy (Unknown, Uncoded 02/28/25 08:50) Anaphylaxis From PERCOCET Allergy (Unknown, Uncoded 02/28/25 08:50) RASH PCN Allergy (Unknown, Uncoded 02/28/25 08:50) Anaphylaxis Percocet Allergy (Unknown, Uncoded 02/28/25 08:50) Rash Medication List - Last Reconciled 02/28/25 by Linda Toney MD empagliflozin (Jardiance) 10 mg PO DAILY infliximab (Remicade) IV insulin lispro subcut insulin pump cart,cont inf,BT (Omnipod Dash Pods (Gen 4) subcutaneous cartridge) As directed insulin pump cartridge As directed [MuSK antibody levels As directed] propranolol ER 160 mg PO DAILY pyridostigmine bromide 30 mg PO TID Tobacco use date assessed: 02/28/25 Dental Screening Dental Screen Date: 02/28/25 Did you have a dental visit in the last 12 months?: No Did you have a dental problem in the last 6 months where you did not have access to dental care?: No Was dental information given to patient?: Patient has dentist HPI Annual HPI Details Pt presents for PE. She complains of chronic for 5 months nose pain worse when touching it. She denies nasal discharge congestion postnasal drip fever chills. Patient has an appointment with ENT in 5 months. She is established with endocrinology for type 1 diabetes controlled on insulin Omnipod. [facility] Medical History (Updated 02/28/25 @ 18:54 by Linda Toney MD) Hypersomnia Loud snoring Diplopia Annual physical exam Normal Pap smear Hyperlipidemia POTS (postural orthostatic tachycardia syndrome) Migraine Hidradenitis suppurativa HTN (hypertension) MDD (major depressive disorder) Psoriasis IBS (irritable bowel syndrome) Palpitation Type 2 diabetes mellitus Surgical History Hx of cholecystectomy History of liver biopsy Family History Father Diabetes HTN (hypertension) Mother Multiple sclerosis Social History Household Members Other:: Student for respiratory therapy. Two children 11 and 18-year-old Housing: House Alcohol intake: current Alcohol intake frequency: does not drink Patient Tobacco Use Status: Former Tobacco user e-Cigarette/Vaping Use: Never Used service: No Current occupational status: unemployed Cognitive needs: No Hearing needs: No Vision needs: No Questionnaire Thrive Questionnaire Date Thrive assessed: 10/17/24 I am a: Patient What is your living situation today?: I have a steady place to live Within the past 12 months, did the food you bought not last and you didn't have the money to get more?: Never true Within the past 12 months, did you worry whether your food would run out before you got money to buy more?: Never true Do you have trouble paying for medicines?: Yes Do you have trouble getting transportation to medical appointments?: No Do you have trouble paying your heating and electricity bill?: No Do you have trouble taking care of your child, family member or friend?: No Do you have trouble with day-to-day activities such as bathing, preparing meals, shopping, managing finances, etc.?: No Are you currently unemployed and looking for a job?: No Are you interested in more education?: No Please select the resources that you would like help with: None Currently or been in a relationship where the following occur: No concerns reported THRIVE Score: 0 ROHIT-7 AMB Questionnaire ROHIT-7 Date ROHIT - 7 assessed: 10/19/24 Source: Developed by Drs. Arun Raphael, Galina Gil, Ang Smiley and colleagues, with an educational sharon from [employer]. Review of Systems Const All systems reviewed & are unremarkable except as noted in HPI and below Eyes Reports no additional complaints ENT Reports no additional complaints Card Reports no additional complaints Resp Reports no additional complaints GI Reports no additional complaints Reports no additional complaints Physical exam (Primary Care) Vital Signs: Last Vital Signs Temp 98.0 F 02/28/25 08:44 Pulse 84 02/28/25 08:44 Resp 15 02/28/25 08:44 BP 112/80 02/28/25 08:44 Pulse Ox 98 02/28/25 08:44 Oxygen Delivery Method Room Air 02/28/25 08:44 BMI result Body Mass Index 31.3 Tobacco/Smoking Status: Tobacco use Status Tobacco use date assessed 02/28/25 02/28/25 08:56 Patient Tobacco Use Status Former Tobacco user 02/28/25 08:45 e-Cigarette/Vaping Use Never Used 02/28/25 08:45 Thrive Assessment: Date of Thrive Assessment Date Thrive assessed 10/17/24 02/28/25 08:45 Currently or been in a relationship where the following occur: No concerns reported Const General: no acute distress HENMT Head: Yes normal to inspection Ears: TM's normal bilaterally General nose exam: Normal external nose present, Normal nasal mucous membranes and turbinates present, No nasal discharge present and Other nasal findings present (Reproducible tenderness to palpation of the bridge and sides of the nose ) Face and sinus: Yes normal facial exam Throat: Yes posterior oropharynx normal Eyes General: appearance normal, both eyes and all related structures Neck Neck: Yes no lymphadenopathy and Yes supple Resp Effort & Inspection: normal respiratory effort Auscultation: clear to auscultation bilaterally Cardio Rhythm: regular rhythm Heart sounds: S1 normal heart sound present and S2 normal heart sound present GI Inspection: Yes normal to inspection Palpation (GI): Soft to palpation Percussion: Yes normal to percussion Auscultation: normal bowel sounds Results AMB Hemoglobin A1c AMB Hemoglobin A1c 7.6 % Last Edit by Asuncion Eason CMA on 02/28/25 08:59 Results Reviewed Results Reviewed: Laboratory Last Values Hgb A1c (Clinic) 7.6 % (4.0-6.0) H 02/28/25 08:44 Coding Level of Care Code Est Pt Prev Care 40-64y(83029) Diagnoses POTS (postural orthostatic tachycardia syndrome) I49.8 Hyperlipidemia E78.5 Type 2 diabetes mellitus E11.9 Annual physical exam Z00.00 Assessment & Plan Assessment & Plan (1) POTS (postural orthostatic tachycardia syndrome): Comment: f/u Dr. Maxwell Code(s): I49.8 - Other specified cardiac arrhythmias Category: Medical Plan: Follow-up with the Cardiology (2) Hyperlipidemia: Comment: Diet-controlled, patient refused statin Code(s): E78.5 - Hyperlipidemia, unspecified Category: Medical Plan: Patient will have a full blood work done by endocrinology at [facility] (3) Type 2 diabetes mellitus: Comment: IDDM , Dr. Boland, on Insulin pump,last A1C 8.6 09/2020 Code(s): E11.9 - Type 2 diabetes mellitus without complications Category: Medical Plan: A1c is 7.1 today. Continue current insulin regimen Jardiance for renal protection ADA diet and she follows-up with endocrinology (4) Annual physical exam: Code(s): Z00.00 - Encounter for general adult medical examination without abnormal findings Category: Medical Plan: Well-balanced diet regular physical activity weight loss discussed with the patient. She is up-to-date with the Pap smear mammogram by roll edge machine operator Orders: Orders XR sinus min 3V Today J32.9 - Chronic sinusitis, unspecified, J34.89 - Other specified disorders of nose and nasal sinuses AMB Hemoglobin A1c Today E11.9 - Type 2 diabetes mellitus without complications XR nasal bones min 3V Today J32.9 - Chronic sinusitis, unspecified, J34.89 - Other specified disorders of nose and nasal sinuses Medications: Refilled pyridostigmine bromide 30 mg PO TID 90 tabs 0RF
--- OUTSIDE RECORDS SUMMARY | 2025-02-28 08:47 | XMS_ITS | Clinical Summary ---
Author Organization [facility] Address [address] [place] [address] Care Team Providers Care Mine Engineer Name Role Phone Raul Titus Primary Care Provider [phone] Allergies Active Allergy Reactions Criticality Noted Date [...] 78 07/27/2017 9:54 AM EST Temperature 36.1 C (97 F) 07/27/2017 9:00 AM EST Respiratory Rate 20 [...] (P ap Smear) 01/04/2005 Influenza Vaccine (#1) 2025 RSV Ped < 20 months Aged Out No longe r eligible based on patient's age to complete this topic Care Teams Mine Engineer Relationship Specialty Start Date End Date Raul Titus DO [address] [place] [address] PCP - General 07/24/17
--- OUTSIDE RECORDS SUMMARY | 2025-02-28 08:47 | XMS_ITS | Encounter Summary ---
Author Organization [facility] Address [address] [place] [address] Care Team Providers Care Health Information Manager Name Role Phone Linda Toney Primary Care Provider [phone] Encounter Details Date Type Department Care Team (Late st Contact Info) Description 02/10/2025 Fantomhart Message [facility] Operating Room [address] [place] [address] MycOrder Mapper, Generic Provider [facility] [place] [id number] Questionnaire Submission Social History Tobacco Use Types Packs/Day Years [...] Care Team (Late st Contact Info) Description 03/09/2025 1:00 PM EDT Office Visit [facility] Dermatology Clinic 4th [address] [place] [address], [place] [phone] Ditch Digger: Kelsy Castro MD [address] [place] [address] 03/13/2025 Hospital Encounter [facility] Operating Room [address] [place] [address] May Cortés MD [address] [place] [address] Scheduled Procedures Name Priority Associated Diagnoses Date/Ti me EXCISION, SKIN AND SUBCUTANE OUS TISSUE, WITH REPAIR Hidradenitis suppurativa of multiple sites documented as of this encounter Visit Diagnoses Not on filedocumented in this encounter Care Teams Health Information Manager Relationship Specialty Start Date End Date Linda Toney [address] [place] [address] PCP - General Internal Medicine 03/25/24 documented as of this encounter
--- OUTSIDE RECORDS SUMMARY | 2025-02-28 08:47 | XMS_ITS | Clinical Summary ---
Author Organization [facility] Address [address] [place] [address] Care Team Providers Care Motor Transport Inspector Name Role Phone Linda Toney Primary Care Provider [phone] Allergies Active Allergy Reactions Criticality Noted Date Comments Amoxicillin Hives,Itching,Rash Low 12/27/2015 Clindamycin Unknown 05/13/2024 Oxycodone Nausea And Vomiting 07/24/2017 GI upset Oxycodone-Acetaminophen Headache,Hives,L ighthead edness,Palpitations,Rash Low 01/28/2023 Penicillin Hives 01/28/2023 Sulfamethoxazole-Trimethopr im Dyspnea,Fatigue,Hives,Ra sh,Unknown High 12/27/2015 Medications camille peroxid/hydrocor t/ (CAMILLE PEROX-HC & CLEANSER NO.14 TOP) 09/16/2023 Active benzoyl peroxide 10% cleanser SMARTSIG:To pical Daily 03/17/2024 Active blood-glucose meter,continuous (Dexcom G7 Career And Guidance Counselor) misc by Other route once daily as [...] Dx 07/2022 followed by retina specialist in [place]. Left eye ptosis and intermittent double vision since 2022-followed by Dr. Rock at [facility]. Right carotid stenosis. Resolved Problems Problem Noted Date Diagnosed Date Resolved Date Disease due to severe acute respiratory syndrome coronavirus 2 (SARS-CoV-2) 02/22/202209/04 Overview (09/29/2024): Problem added by Discern Expert Encounters Date Type Department Care Team Description 02/24/2025 myChart Message [facility] Dermatology Clinic 4th [address] [place] [phone] Milk Route Deliverer: Gardenia Mascorro RN [facility] 02/16/2025 myChart Message [facility] Dermatology Clinic 4th Floor [address] [place] [address] Milk Route Deliverer: Gardenia Mascorro RN [facility] 02/10/2025 myChart Message [facility] Operating Room [address] [place], [place] [phone] Mycemeliat, Generic Provider Questionnaire Submission 02/09/2025 Telephone [facility]ology [facility] 4th [address] [place] [phone] Milk Route Deliverer: Gardenia Mascorro, AN 02/09/2025 Documentation [facility]ology [facility] 4th Floor [address] [place] [phone] Milk Route Deliverer: Gardenia Mascorro RN 02/02/2025 Telephone [facility] Plastic Cosmetic Surgery [address] [place] [phone] Milk Route Deliverer: May Nguyen MD 02/01/2025 10:30 AM EDT Office Visit [facility] [address] [place] [address] Milk Route Deliverer: May Nguyen MD Hidradenitis suppurativa of multiple sites (Primary Dx) 01/26/2025 myChart Message [facility] Dermatology Clinic [address] [phone] Milk Route Deliverer: Gardenia Mascorro, AN [facility] 01/26/2025 Documentation [facility] 4th Floor [address] [place] [phone] Milk Route Deliverer: Gardenia Mascorro, AN 01/26/2025 Telephone [facility]atology [facility] 4th [address] [place] [phone] Milk Route Deliverer: Karo Cain Telephone Intake, Staff PAC Patient Request Call Back 01/26/2025 Telephone [facility] [address] [place] [address] Milk Route Deliverer: Darline Fernando PAC Appt Request - New 01/16/2025 Refill [facility] Dermatology Clinic 4th Floor [address] [facility], [place] [phone] Milk Route Deliverer: Gardenia Mascorro RN 01/02/2025 2:00 PM EDT Infusion [facility] Infusion [facility] [address] [place] [phone] Kelsy Gibson MD Gendron, Michelle M RN Hidradenitis suppurativa of multiple sites (Primary Dx) 12/28/2024 Telephone [facility] Financial Clearance Department [address] [place] [address] Linda Toney 12/01/2024 3:00 PM EDT Infusion [facility] [address] [place] [address] Kelsy Gibson MD Damelio, Kristen M, RN Hidradenitis suppurativa of multiple sites (Primary Dx) from Last 3 Months Immunizations Immunization Administration Dates Next Due Covid-19 Monovalent Vaccine, Moderna, mRNA, PF 11/03/2020,10/04/2020,08/10/2020,2016 Influenza, Injectable, Quadr ivalent, Contains Preservative 06/06/2019 [...] Sign Reading Time Taken Comments Blood Pressure 112/77 01/02/2025 2:26 PM EDT Pulse 87 01/02/2025 2:26 PM EDT Temperature 36.4 C (97.5 F) 01/02/2025 2:26 PM EDT Respiratory Rate 18 01/02/2025 2:26 PM EDT Oxygen Saturation 98% 01/02/2025 2:26 PM EDT Inhaled Oxygen Concentration - - Weight 90.5 kg (199 lb 8.3 oz) 01/02/2025 2:26 P M EDT Height 169.1 cm (5' 6.58 ) 06/30/2024 1:59 PM ES T Body Mass Index 31.65 06/30/2024 1:59 PM EST Plan of Treatment Upcoming Encounters Date Type Department Care Team (Late st Contact Info) Description 03/09/2025 1:00 PM EDT Office Visit [facility] Dermatology Clinic 4th Floor [address] [place] [address], [place] [phone] Milk Route Deliverer: Kelsy Castro MD [address] [place] [phone] 03/13/2025 Hospital Encounter [facility] Operating Room [address] [place] [address] May Cortés MD [address] [place] [phone] Scheduled Procedures Name Priority Associated Diagnoses Date/Ti me EXCISION, SKIN AND SUBCUTANE OUS TISSUE, WITH REPAIR Hidradenitis suppurativa of multiple sites Health Maintenance Due Date Last Done Comments [...] of 2 - PCV) 01/04/2003 COVID-19 Vaccine ( 2023-2 5 season) 2024 11/03/2020, 10/04/2020, 09/07/2020, Additional history exists Alcohol/Substance Use Screening 07/06/2024 Depression Screening and Follow-Up 07/06/2024 Social Drivers of Health Chandni ual Screening 07/06/2024 Influenza Vaccine (#1) 2025 , 03/29/2020, 06/06/2019, Additional history exists Hemoglobin A1C 04/30/2025 10/29/2024, 01/04, 11/06/2023, Additional history exists Basic Metabolic Panel 10/29/2025 10/29/2024, 024 Mammogram 2026 01/06/2024, 12/12/2021 DTaP,Tdap,and Td Vaccines (2 - Td or Tdap) 01/14/2032 01/13/2022 RSV Vaccine (60+ years old a nd patients) (1 - 1-dose 75+ series) 01/04/2059 HIV Screening Completed 05/13/2024 Hepatitis C Screening Completed 05/13/2024 Procedures * Due to [place] [employer] law, this organization might not be sharing negative HIV tests. Procedure Name Priority Date/Time Associated Diagnosis Comments HEPATITIS C ANTIBODY W/REFLEX TO HCV RNA, QUANTITATIVE PCR Routine 05/13/2024 9:42 AM EST High risk medication use HM MAMMOGRAPHY, BILATERAL 01/06/2024 from Last 3 Months or Most Recently Relevant to Health Maintenance Results * Due to [place] [employer] law, this organization might not be sharing negative HIV tests. * Hepatitis C Antibody w/Reflex to HCV RNA, Quantitative PCR (05/13/2024 9:42 AM EST) Hepatitis C Antibody NON-REACT RIVKA NON-REACT RIVKA 05/13/2024 7:42 PM EST [employer] Comment: HCV antibody was non-reactive. There is no laboratory evidence of HCV infection. In most cases, no further action is required. However, if recent HCV exposure is suspected, a test for HCV RNA (test code 09783) is suggested. For additional information please refer to http://education.Hotelscan/faq/UZM64l2 (This link is being provided for informational/ educational purposes only.) Blood Structure of peripheral vein / Unknown Venipuncture / Unknown 05/13/2024 9:42 AM EST 05/13/2024 9:42 AM EST Narrative [facility] - 05/13/2024 7:42 PM EST [facility] Received Date: us Klesy Gibson MD LAB BLOOD ORDERABLES Final R esult [facility] [address] [facility] [address]rd Floor, [place] [address], [place] [phone] [employer] [facility] [address] [facility] [address], [place] [address], [place] [phone] * HM Mammography, Bilateral (01/06/2024) Anatomical Region Laterality Modality Other 01/06/2024 us Onbase Scan [facility] Final Resu lt from Last 3 Months or Most Recently Relevant to Health Maintenance Insurance [place] [address] HS/FREE CARE [facility] MEDICAID [facility] Personally Care Teams Motor Transport Inspector Relationship Specialty Start Date End Date Linda Toney [address] [place] [address] PCP - General Internal Medicine 03/25/24
--- OUTSIDE RECORDS SUMMARY | 2025-02-28 08:47 | XMS_ITS | Clinical Summary ---
Author Organization [facility] Address [address] [place] [address] Care Team Providers Care Disposition Clerk Name Role Phone Raul Titus MD Primary Care Provider [phone] Surgical History Surgery Date Site/Laterality Comments CHOLECYSTECTOMY PROCEDURE:CHOLECYSTECTOMY DENTAL SURGERY PROCEDURE:DENTAL SURGERY INGUINAL HIDRADENITIS EXCISION 07/27/2017 Left PROCEDURE:INGUINAL HIDRADENITIS EXCISION;COMMENT:Procedure: EXCISION HIDRADENITIS INGUINAL LEFT; Surgeon: Josie Rivera MD; Location: [facility] MAIN OPERATING ROOM; Service: General; Laterality: [...] 01/04/2005 COVID-19 Vaccine (2023-2 5 season) 2024 Depression Screening 07/06/2024 Influenza Vaccine (#1) 2025 HIB Vaccines Aged Out No longer [...] 5 Years) and At-Risk Patients (6 to 49 Years) Aged Out No longer eligible b ased on patient's age to complete this topic RSV Immunization Patients Un lala 20 months Aged Out No longer eligible b ased on patient's age to complete this topic Varicella Vaccines Aged Out No longer eligible based on patient's age to complete this topic Care Teams Disposition Clerk Relationship Specialty Start Date End Date Raul Titus MD [address] [place] [address] Dr [address] MAYRA José PCP - General 07/24/17
--- OUTSIDE RECORDS SUMMARY | 2025-02-28 08:47 | XMS_ITS | Encounter Summary ---
Author Organization [facility] Address [address] [place] [address] Care Team Providers Care Director Of Elementary Education Name Role Phone Linda Toney Primary Care Provider [phone] Encounter Details Date Type Department Care Team (Late st Contact Info) Description 12/28/2024 Telephone [facility] Financial Clearance Department [address] [place] [address] Linda Toney [address] [place] [address] Social History Tobacco Use Types Packs/Day Years Used Date Smoking Tobacco: Never Assessed Comments Unknown Sex and Gender Information Value Date Recorded Sex Assigned at Female 03/25/2024 10:38 AM EDT Legal Sex Female 10:33 AM EDT Gender Identity Female 05/08/2024 3:54 PM EST Sexual Orientation Straight 05/08/2024 3: 54 PM EST documented as of this encounter Miscellaneous Notes * Telephone Encounter - Kristyn Mcclendon LPN - 01/04/2025 10:24 AM EDT Spoke with Haritha Merchant not needed at this time. Patient being set-up for home infusion. * Telephone Encounter - Kristyn Mcclendon LPN - 01/04/2025 9:31 AM EDT I have sent secure chat to [employer] to obtain your contact number, will not be able to move forward until response received. * Telephone Encounter - Kristyn Mcclendon LPN - 01/03/2025 9:17 AM EDT I can call to reschedule P2P, would you please provide me with your contact number and availability? * Telephone Encounter - Kristyn Mcclendon LPN - 12/29/2024 10:12 AM EDT Please advise regarding [facility] peer to peer review. * Telephone Encounter - Amanda Marie - 12/28/2024 3:25 PM EDT Patient is calling to follow up on PA for [facility] which she is due to take tomorrow. Unfortunately, I was not able to see any recent updates on the peer to peer that was in the works in November. Please give pt a call with an update. documented in this encounter Plan of Treatment Upcoming Encounters Date Type Department Care Team (Late st Contact Info) Description 03/09/2025 1:00 PM EDT Office Visit [facility] Dermatology Clinic [address]th [address] [place] [address], [place] [phone] Internal Audit Manager: Kelsy Castro MD [address] [place] [phone] 03/13/2025 Hospital Encounter [facility] Operating Room [address] [place] [address] May Cortés MD [address] [place] [address] Scheduled Procedures Name Priority Associated Diagnoses Date/Ti me EXCISION, SKIN AND SUBCUTANE OUS TISSUE, WITH REPAIR Hidradenitis suppurativa of multiple sites documented as of this encounter Visit Diagnoses Not on filedocumented in this encounter Care Teams Director Of Elementary Education Relationship Specialty Start Date End Date Linda Toney [address] [place] [address] PCP - General Internal Medicine 03/25/24 documented as of this encounter
--- OUTSIDE RECORDS SUMMARY | 2025-02-28 08:47 | XMS_ITS | Encounter Summary ---
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, macular edema presence unspecified, unspecified laterality, unspecified proliferative retinopathy type Nataliia Mortensen PA-C [address] [place] [address] Phone: tel: fax: [email or web address] Referral ID Status Reason Start Date Expiration Date V isits Requested Visits Authorized [id number] Pending Review 1 1 Reason for Visit * Reason Comments Medication Refill Encounter Details Date Type Department Care Team (Late st Contact Info) Description 02/25/2025 Refill [facility] [address] [place] [address] Nataliia Mortensen PA-C [address] [place] [phone] [email or web address] Medication Refill Social History Tobacco Use Types Packs/Day Years Used Date Smoking Tobacco: Former Cigarettes Smokeless Tobacco: Never Alcohol Use Standard Drinks/Week Comments Never 0 (1 standard drink = 0.6 oz pur e alcohol) Education Answer Date Recorded Are you interested in more education? Not on camden e 10/31/2022 Are you concerned about learning? Not on file 10/31/2022 No 10/31/2022 No 10/31/2022 Digital Access Answer Date Recorded No 12/01/2022 No 12/01/2022 Reliable internet access at home? Not on file 12/01/2022 Device with a working camera? Not on file Comments Unknown Sex and Gender Information Value Date Recorded Sex Assigned at Not on file Legal Sex Female 10:28 PM EDT Gender Identity Not on file Sexual Orientation Not on file documented as of this encounter Progress Notes * Yesika Joiner MA - 02/27/2025 9:42 AM EDT Rx Care Gap Status - Instructions for Clinical Staff (prescriber discretion applies): > Mismatch review guide > At least one request does not meet full criteria. Specifics below. > Labs due: Please remind patient. > No new orders needed. Lipid panel Urine Microalbumin Visit Info Last visit: 11/11/2024 Nataliia Mortensen PA-C - Endocrinology [facility] > Requested f/u: Return in about 8 months (around 07/14/2025). Upcoming visit: 04/10/2025 Karissa Boland MD - Endocrinology [facility] ACTIONS TAKEN BY Yesika Joiner MA - Labs needed - Teed up orders and/or reminded pt. Diabetes Rx Protocol (on Diabetes Registry) - insulin aspart Criteria not met; renew for up to 3 months. Visit in the past 14 months: Yes Clinical criteria: - BMP within past year: Yes - A1c within past 6 months: Yes - Lipid panel within past year: None (has active order) (LDL 107 on 01/25/2024) - Urine microalbumin within past year or on JUSTIN/ARB: None (has active order) Lab Results Component Value Date SODIUM 138 10/29/2024 POTASSIUM 4.1 10/29/2024 CHLORIDE 104 10/29/2024 CO2 23 10/29/2024 BUN 9 10/29/2024 CREATININE 0.60 10/29/2024 EGFR 116 10/29/2024 Lab Results Component Value Date HEMOGLOBIN A1C 6.3 (H) 10/29/2024 Lab Results Component Value Date LDL 107 01/25/2024 HDL 41 01/25/2024 CARDIAC RISK RATIO 4.6 (H) 01/25/2024 TRIGLYCERIDES 209 (H) 01/25/2024 CHOLESTEROL 190 01/25/2024 Health Maintenance Labs Due / Due Soon Topic Date Due URINE MICROALBUMIN/CREATININE RATIO Never done LIPID PANEL 01/24/2025 documented in this encounter Plan of Treatment Upcoming Encounters Date Type Department Care Team (Late st Contact Info) Description 04/10/2025 10:20 AM EDT Office Visit [facility] [address] [place] [address] Karissa Boland MD [address] [place] [address] 07/14/2025 8:00 AM EST Office Visit [facility] [address] [place] [address] [place] [address] Nataliia Mortensen PA-C [address] [place] [phone] [email or web address] documented as of this encounter Visit Diagnoses Diagnosis 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 It is not the complete legal health record.[facility]
--- OUTSIDE RECORDS SUMMARY | 2025-02-28 08:47 | XMS_ITS | Encounter Summary ---
Author Organization [facility] Address [address] [place] [address] Care Team Providers Care Beet End Supervisor Name Role Phone Linda Toney Primary Care Provider [phone] Encounter Details Date Type Department Care Team (Late st Contact Info) Description 02/24/2025 myChart Message [facility] Dermatology Clinic [address]th [address] [place] [phone] Forging Press Operator: Gardenia Mascorro, AN [facility] Social History Tobacco Use Types Packs/Day Years [...] Description 03/09/2025 1:00 PM EDT Office Visit [facility] Dermatology Clinic 4th [address] [place] [phone] Forging Press Operator: Kelsy Castro MD [address] [place] [address] 03/13/2025 Hospital Encounter [facility] Operating Room [address] [place] [address] May Cortés MD [address] [place] [address] Scheduled Procedures Name Priority Associated Diagnoses Date/Ti me EXCISION, SKIN AND SUBCUTANE OUS TISSUE, WITH REPAIR Hidradenitis suppurativa of multiple sites documented as of this encounter Visit Diagnoses Not on filedocumented in this encounter Care Teams Beet End Supervisor Relationship Specialty Start Date End Date Linda Toney [address] [place] [address] PCP - General Internal Medicine 03/25/24 documented as of this encounter
--- OUTSIDE RECORDS SUMMARY | 2025-02-28 08:47 | XMS_ITS | Encounter Summary ---
Author Organization [facility] Address [address] [place] [address] Care Team Providers Care Bell Person Name Role Phone Linda Tnoey Primary Care Provider Reason for Visit * Reason Onset Date Comments PAC Appt Request - New 01/26/2025 Encounter Details Date Type Department Care Team (Late Contact Info) Description 01/26/2025 Telephone [facility] Plastic Cosmetic Surgery [address] [place] [phone] High Frequency Mill Operator: Darline Fernando PAC Appt Request - New Social History Tobacco Use Types Packs/Day Years Used Date Smoking Tobacco: Never Assessed Comments Unknown Sex and Gender Information Value Date Recorded Sex Assigned at Female 03/25/2024 10:38 AM EDT Legal Sex Female 10:33 AM EDT Gender Identity Female 05/08/2024 3:54 PM EST Sexual Orientation Straight 05/08/2024 3: 54 PM EST documented as of this encounter Miscellaneous Notes * Telephone Encounter - Darline Eubanks - 01/26/2025 9:07 AM EDT New patient Dx states 14days/pac Has been r/s by clinic 2x 02/01/2025 Dx: hidradenitis suppurativa vs SMOLD of the L breast - please manage surgically Patient would like to be moved up if possible, due to being in pain. On wait list- just concerned if it is r/s again Pls call w/ sooner documented in this encounter Plan of Treatment Upcoming Encounters Date Type Department Care Team (Late st Contact Info) Description 03/09/2025 1:00 PM EDT Office Visit [facility] Dermatology Clinic 4th Floor [address] [facility], [place] [phone] High Frequency Mill Operator: Kelsy Castro MD [address] [place] [address] 03/13/2025 Hospital Encounter [facility] Operating Room [address] [place] [address] May Cortés MD [address] [place], [place] [phone] Scheduled Procedures Name Priority Associated Diagnoses Date/Ti me EXCISION, SKIN AND SUBCUTANE OUS TISSUE, WITH REPAIR Hidradenitis suppurativa of multiple sites documented as of this encounter Visit Diagnoses Not on filedocumented in this encounter Care Teams Bell Person Relationship Specialty Start Date End Date Linda Toney [address] [place] [address] PCP - General Internal Medicine 03/25/24 documented as of this encounter
--- OUTSIDE RECORDS SUMMARY | 2025-02-28 08:47 | XMS_ITS | Encounter Summary ---
Author Organization [facility] Address [address] [place] [address] Care Team Providers Care Mail Order Biller Name Role Phone Linda Toney Primary Care Provider [phone] Encounter Details Date Type Department Care Team (Late st Contact Info) Description 01/26/2025 myChart Message [facility] Dermatology Clinic 4th [address] [place] [phone] Manager Fitness: Gardenia Mascorro RN [facility] Social History Tobacco Use Types Packs/Day Years [...] Description 03/09/2025 1:00 PM EDT Office Visit [facility] Dermatology Clinic 4th [address] [place] [phone] Manager Fitness: Kelsy Castro MD [address] [place] [address] 03/13/2025 Hospital Encounter [facility] Operating Room [address] [place] [address] May Cortés MD [address] [place] [address] Scheduled Procedures Name Priority Associated Diagnoses Date/Ti me EXCISION, SKIN AND SUBCUTANE OUS TISSUE, WITH REPAIR Hidradenitis suppurativa of multiple sites documented as of this encounter Visit Diagnoses Not on filedocumented in this encounter Care Teams Mail Order Biller Relationship Specialty Start Date End Date Linda Toney [address] [place] [address] PCP - General Internal Medicine 03/25/24 documented as of this encounter
--- OUTSIDE RECORDS SUMMARY | 2025-02-28 08:47 | XMS_ITS | Clinical Summary ---
Author Organization [facility] Address [address] [place] [address] Phone Care Team Providers Care Drywall Contractor Name Role Phone Linda Toney MD Primary Care Provider [phone] Allergies Active Allergy Reactions Criticality Noted Date Comments Amoxicillin Hives,Rash Low 12/27/2015 Clindamycin Unknown 05/13/2024 Oxycodone Nausea And Vomiting 07/24/2017 GI upset Oxycodone-Acetaminophen Headaches,Hives, Lighthea dedness,Palpitations,Calin h Low 01/28/2023 Penicillin Hives 01/28/2023 Sulfamethoxazole-Trimethopr im Fatigue,Hives,Rash,Short ness Of Breath,Unknown High 12/27/2015 Medications norethindrone (MICRONOR) 0.35 mg tablet Take 1 tablet by mouth every morning. 023 Active propranoloL (INDERAL LA) 160 mg SR capsule Take 1 capsule by mouth every morning. 023 Active minocycline (MINOCIN) 50 MG capsule Take 50 mg by mouth daily. 024 Active infliximab (REMICADE IV) Inject 5 mg into the vein once every 6 weeks. Active DEXCOM G7 SENSOR DeviIndications: 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 1 each by Miscellaneous route Every 10 Days. 9 each 3 025 Active insulin pump cart,auto,BT,G6/ 7 (OMNIPOD 5 G6-G7 PODS, GEN 5,) Crtg Inject 1 each under the skin every other day. 180 each 3 025 Active JARDIANCE 10 mg tablet TAKE 1 TABLET BY MOUTH EVERY DAY 30 tablet 3 025 Active insulin aspart U-100 (NOVOLOG) 100 unit/mL injection vialIndications: 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, macular edema presence unspecified, unspecified laterality, unspecified proliferative retinopathy type Inject 100 Units under the skin continuous. via insulin pump 90 mL 2 025 Active insulin aspart U-100 (NOVOLOG) 100 unit/mL injection vialIndications: 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, macular edema presence unspecified, unspecified laterality, unspecified proliferative retinopathy type Inject 100 Units under the skin continuous. By insulin pump 90 mL 3 025 2024 Discontinued empagliflozin (JARDIANCE) 10 mg tablet Take 1 tablet (10 mg total) by mouth daily. 30 tablet 3 025 2024 Discontinued Active Problems Problem Noted Date Diagnosed Date Type 1 diabetes mellitus with hyperglycemia 08/07 Assessment & Plan (12/01/2024 1:02 PM EDT): Control is reasonable/good based upon the patient's insulin pump and sensor download. No frequent or severe hypoglycemia. She will have an occasional episode of hypoglycemia. She will correct and then is fine. Will maintain her current pump settings. Continue to work on eating healthy and being active. To call or message with any issues managing her glucose levels. Up to date with ophtho. Labs ordered Assessment & Plan (09/01/2024 6:04 PM EST): 39-year-old woman diagnosed with GDM in 2001 treated with metformin. metformin for few months then DKA and switched to basal/bolus insulin. MiniMed pump started in 2004. CGM added around 2005. Changed to OmniPod with Dexcom around 2021. Using OmniPod 5 with Dexcom currently. Diagnosed with left diabetic retinopathy in 07/2022, followed by retina specialist in [place]. Left eye ptosis and intermittent double vision since 2022- followed by Dr. Rock at [facility]. Right carotid stenosis. Questioning the type of her diabetes she had C-peptide measured in 07/2023 which was low normal at 1.4 while glucose level was 171. Her eulogio 65 and islet cell antibody were undetectable. Her control has improved but suboptimal. Last A1c 8.5% in 01/2024. Dexcom download shows 63% in range with average glucose 172. Rare hypoglycemia. She is having some issues with sensor sites. She may actually have type 2 diabetes considering the measurable C-peptide levels about 22 years after her diabetes diagnosis. -We discussed pros and cons of adding an SGLT2 inhibitor. Patient was interested to try, Rx on Jardiance 10 mg was sent. -Call if any signs of UTI/yeast infections/prolonged hyperglycemia, symptoms of DKA. -Try to consistently bolus for meals about 15 minutes before start of meal -Labs today Fatigue 02/06/2024 Assessment & Plan (02/06/2024 6:20 PM EDT): Patient reports feeling tired, but sleep study in March of last year was normal. No anemia suspected due to absence of menstrual bleeding (on Micronor control). -Order TSH to rule out thyroid dysfunction, as it is more common in patients with type 1 diabetes and has not been checked recently. -Order CBC to rule out anemia. Vitamin D deficiency, unspecified 08/02/2023 Assessment & Plan (02/06/2024 6:19 PM EDT): History of low vitamin D level. Last D level was slightly low at 21 in 07/2023 while not on vitamin D supplement. She was recommended to start 1000 IU D3 daily after these labs what she has not started yet. We discussed importance of adequate calcium and vitamin D intake, regular weightbearing exercises and fall prevention. -Start 1000 IU D3 daily. Monitor. Assessment & Plan (08/02/2023 4:56 PM EST): History of low vitamin D level. Patient currently is not on a supplement. Added vitamin D level to next labs. Insulin pump in place 01/28/2023 Assessment & Plan (12/01/2024 12:59 PM EDT): She is using the omnipod 5 and using the dexcom G6 and getting supplies from [employer] Assessment & Plan (05/19/2024 4:34 PM EST): She is using the omnipod 5 and using the dexcom G6 and getting supplies from [employer] Assessment & Plan (02/06/2024 6:02 PM EDT): She is using the omnipod 5 and getting supplies from [employer] and using the dexcom G6 and getting supplies from [employer] Assessment & Plan (11/06/2023 11:41 AM EDT): She is using the omnipod 5 and getting supplies from [employer] and using the dexcom G6 and getting supplies from [employer] Assessment & Plan (08/02/2023 4:45 PM EST): She is using the omnipod 5 and getting supplies from [employer] and using the dexcom G6 and getting supplies from [employer] Assessment & Plan (01/28/2023 3:39 PM EDT): She is using the omnipod 5 and getting supplies from [employer] and using the dexcom G6 and getting supplies from [employer] Type 1 diabetes mellitus with proliferative reti nopathy 07/07/2000 01/28/2023 Overview (08/02/2023): GDM 2001 treated with metformin. metformin for few months then DKA and switch to basal/bolus insulin. MiniMed pump 2004. CGM added around 2005. Changed to OmniPod with Dexcom around 2021. OmniPod 5 with Dexcom. Symptomatic PNP. Had nerve conduction studies in 2009. Left diabetic retinopathy Dx 07/2022 followed by retina specialist in [place]. Left eye ptosis and intermittent double vision since 2022-followed by Dr. Rock at [facility]. Right carotid stenosis. Assessment & Plan (05/19/2024 4:35 PM EST): Control is improving based upon the patient's dexcom G7 and omnipod downloads. No frequent or severe hypoglycemia. She went for a period of time where she didn't have her pump supplies due to issues with the insurance. She has had her supplies again for a couple weeks and her control is improving. Will maintain her settings. Continue to work on eating healthy and being active. To call or message with any issues managing her glucose levels. Up to date with sevenloado. Labs ordered Assessment & Plan (02/06/2024 6:22 PM EDT): A1c improved from 8.1 in July to 7.9 in November. Patient is on Lispro insulin via OmniPod 5 pump. Dexcom G6 download reviewed, average glucose 156, time in range 69%. No frequent or severe hypoglycemia. Highest blood sugars are after 6 PM related to evening meal. -Keep current pump settings. -Order A1c, kidney and liver function tests, urine microalbumin and lipid profile if has not been checked recently. -Refill Lispro insulin prescription, increase to 8 vials per 3 months. -We again reviewed her presentation of diabetes started with gestational diabetes in 2001 treated with metformin. metformin for few months then presented with DKA and was switched to basal/bolus insulin. She was 50 pounds heavier at the time of diagnosis then now. Her C-peptide level was measurable at 1.4 while fasting glucose 171 in 07/2023 after 20 years of diabetes and her eulogio 65 and islet cell antibodies were negative suggesting that she may actually have type 2 diabetes. This strong family history on the paternal side may also support this. We discussed using an SGLT2 inhibitor though it is not FDA approved in type 1 diabetes with increased risk of DKA. Since patient is using a continuous glucose monitor and self-management is good the risk of DKA is lowered in general. We will rediscuss using an SGLT2 inhibitor at the next visit if A1c remains over 7%. Assessment & Plan (11/06/2023 12:01 PM EDT): Control is reasonable/good based upon the patient's dexcom G6 and omnipod downloads. No frequent or severe hypoglycemia. Her control is doing well overall. Her glucose spikes are coming when she is not bolusing prior to eating. Will maintain her settings. She is having issues with the new dexcom adhesive causing skin reactions. Discussed different ways to try and help prevent this. Continue to work on eating healthy and being active. To call or message with any issues managing her glucose levels. Up to date with sevenloado. Labs ordered Assessment & Plan (08/02/2023 4:58 PM EST): 38-year-old woman with history of GDM in 2001 treated with metformin. metformin for few months then DKA and switch to basal/bolus insulin. Started on insulin pump in 2004. Improved but suboptimal control by Dexcom CGM download. Last A1c down to 7.7% in 04/2023. Needing about 100 units of insulin per day by OmniPod 5 pump. Despite using an insulin to carb ratio of 1:2 postprandial spikes remain. Symptomatic neuropathy on feet. Patient may add 600 mg alpha lipoid acid daily to decrease symptoms. Discussed importance of accuracy of carb counting. Make sure that enters or carbs consumed and bolus for them preferably about 15 minutes before start of meal. If no improvement in postprandial blood sugars, may change the insulin to carb ratio to 1-1.5 from current 1-2. Could also switch to a more rapid acting insulin like Fiasp or Lyumjev. Check labs soon. Will check B12 -not on supplement currently. We will also check C-peptide and eulogio 65 antibody. Assessment & Plan (01/28/2023 3:46 PM EDT): Control is reasonable based upon the patient's dexcom G6 and omnipod downloads. No frequent or severe hypoglycemia. She is not currently using automated mode, she is in manual mode. She had issues with highs when trying the automated mode. She is willing to try again. Will adjust her target glucose to 120 from 140 and adjust her correction glucose to correct anything above 120 from 160. Will also adjust her insulin sensitivity factor from 1:25 to 1:22 to help with the post correction highs. Continue to work on eating healthy and being active. To call or message with any issues managing her glucose levels. Up to date with ophtho. Scheduled to see podiatry. Labs ordered Encounters Date Type Department Care Team Description 02/25/2025 Refill [facility] [address] [place] [address] Nataliia Mortensen PA-C Medication Refill 01/31/2025 Refill [facility] [address] [place] [address] Karissa Boland MD Medication Refill 01/11/2025 Telephone [facility] [address] [place] [address] [place] [phone] Liz Raymond MA Medication Prior Authorization from Last 3 Months Social History Tobacco Use Types Packs/Day Years Used Date Smoking Tobacco: Former Cigarettes Smokeless Tobacco: Never Tobacco Cessation:Counseling Given: Not Answered Alcohol Use Standard Drinks/Week Comments Never 0 [...] Sign Reading Time Taken Comments Blood Pressure 106/70 11/11/2024 1:27 PM EDT Pulse 89 11/11/2024 1:27 PM EDT Temperature 36.3 C (97.3 F) 07/27/2023 9:44 AM EST Respiratory Rate - - Oxygen Saturation 99% 11/11/2024 1:27 PM EDT Inhaled Oxygen Concentration - - Weight 92.7 kg (204 lb 6.4 oz) 11/11/2024 1:27 P M EDT Height 170 cm (5' 6.93 ) 11/11/2024 1:27 PM EDT Body Mass Index 32.08 11/11/2024 1:27 PM EDT Plan of Treatment Upcoming Encounters Date Type Department Care Team (Late st Contact Info) Description 04/10/2025 10:20 AM EDT Office Visit [facility] [address] [place] [address] [place] [address] Karissa Boland MD [address] [place] [phone] 07/14/2025 8:00 AM EST Office Visit [facility] [address] [place] [address] Nataliia Mortensen PA-C [address] [place] [address] [email or web address] Health Maintenance Due Date Last Done Comments Adult Td,Tdap Booster 1984 DEPRESSION SCREENING 1996 SMOKING Hx and SMOKELESS TOBACCO SCREENING 01/04/1997 HIV ONE-TIME SCREENING (18-65 YEARS) 01/04/2002 PNEUMOCOCCAL VACCINES (0-49 years) (1 of 2 - PCV) 01/04/2003 PAP SMEAR 01/04/2005 DIABETIC EYE EXAM 01/28/2023 URINE MICROALBUMIN/CREATININE RATIO 01/28/2023 MAMMOGRAM 2024 COVID-19 VACCINE ( season) 2024 11/03/2020, 10/04/2020, 09/07/2020, Additional history exists LIPID PANEL 01/24/2025 01/25/2024 INFLUENZA VACCINE (#1) 2025 , 03/29/2020, 06/06/2019, Additional history exists HEMOGLOBIN A1C 04/30/2025 10/29/2024, 01/04, 11/06/2023, Additional history exists BLOOD PRESSURE 05/14/2025 11/11/2024 HEPATITIS C SCREENING Completed 05/13/2024 HEPATITIS A VACCINES Aged Out No long er eligible based on patient's age to complete this topic HIB VACCINES Aged Out No longer eligi ble based on patient's age to complete this topic MENINGOCOCCAL VACCINES (ACWY) Aged Out No longer eligible based on patient's age to complete this topic MENINGOCOCCAL VACCINES (B) Aged Out N o longer eligible based on patient's age to complete this topic Medical Devices Not on file Procedures Procedure Name Priority Date/Time Associated Diagnosis Comments HEMOGLOBIN A1C Routine 10/29/2024 10:35 AM EDT 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, macular edema presence unspecified, unspecified laterality, unspecified proliferative retinopathy type LIPID PANEL Routine 01/25/2024 2:58 PM EDT 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, macular edema presence unspecified, unspecified laterality, unspecified proliferative retinopathy type from Last 3 Months or Most Recently Relevant to Health Maintenance Results * (ABNORMAL) Hemoglobin A1c (10/29/2024 10:35 AM EDT) HEMOGLOBIN A1C 6.3(H) 4.3 - 5.8 % [facility] Blood 10/29/2024 10:3 5 AM EDT 10/29/2024 10:38 AM EDT us Nataliia Mortensen PA-C LAB BLOOD ORDERABL ES Final Result Performing Organization Address [facility]/ZIP Co de Phone Number [address] [address] * (ABNORMAL) Lipid panel (01/25/2024 2:58 PM EDT) HDL 41 mg/dL [facility] Comment: Interpretation <40 mg/dL: Low HDL cholesterol (major risk factor for CHD) Greater than or equal to 60 mg/dL: High HDL cholesterol ( negative risk factor for CHD) HDL - cholesterol is affected by a number of factors, e.g. smoking, excerise, hormones, sex and age. CHOLESTEROL 190 0 - 240 mg/dL [facility] TRIGLYCERIDES 209(H) 30 - 160 mg/dL [facility] LDL 107 50 - 129 mg/dL [facility] Comment: LDL levels in terms of risk for coronary heart disease: <100 mg/dL: Optimal 100-129 mg/dL: Near or above optimal 130-159 mg/dL: Borderline high 160-189 mg/dL: High >190 mg/dL: Very High CARDIAC RISK RATIO 4.6(H) 3.3 - 4.4 C [facility] Blood 01/25/2024 2:58 PM EDT 01/25/2024 3:00 PM EDT us Karissa Boland MD LAB BLOOD ORDERABLES Final Res ult [facility] [address] [place] [address] from Last 3 Months or Most Recently Relevant to Health Maintenance Insurance WELLSENSE NON NSPG PCP SILVER CLARITY CONNECTORCARE BURGOONENSE NON NSPG PCP SILVER CLARITY CONNECTORCARE WELLSENSE NON NSPG PCP SILVER CLARITY CONNECTORCARE BURGOONENSE NON NSPG PCP SILVER CLARITY CONNECTORCARE BURGOONENSE NON NSPG PCP SILVER CLARITY CONNECTORCARE BURGOONENSE NON NSPG PCP SILVER CLARITY CONNECTORCARE Siddharth [place] [id number] Care Teams Drywall Contractor Relationship Specialty Start Date End Date Linda Toney MD 1962 [facility] [address] [place] [address] PCP - General Internal Medicine 01/19/23 Additional Source Comments The information contained in this document represents components of the legal health record. It is not the complete legal health record.[facility]
--- OUTSIDE RECORDS SUMMARY | 2025-02-28 08:47 | XMS_ITS | Encounter Summary ---
Author Organization [facility] Address [address] [place] [address] Care Team Providers Care Staff Mine Warfare Officer Name Role Phone Linda Toney Primary Care Provider [phone] Encounter Details Date Type Department Care Team (Late st Contact Info) Description 09/06/2024 Orders Only [facility] [address] [place] [phone] Reba Leija, PharmD Social History Tobacco Use [...] Description 03/09/2025 1:00 PM EDT Office Visit [facility] 4th Floor [address] [facility], [place] [phone] Women'S Activities Adviser: Kelsy Castro MD [address] [place] [address] [phone] 03/13/2025 Hospital Encounter [facility] Operating Room [address] [place] [phone] May Cortés MD [address] [place] [address] [phone] Scheduled Procedures Name Priority Associated Diagnoses Date/Ti me EXCISION, SKIN AND SUBCUTANE OUS TISSUE, WITH REPAIR Hidradenitis suppurativa of multiple sites documented as of this encounter Visit Diagnoses Not on filedocumented in this encounter Care Teams Staff Mine Warfare Officer Relationship Specialty Start Date End Date Linda oTney [address] [place] [address] PCP - General Internal Medicine 03/25/24 documented as of this encounter
--- OUTSIDE RECORDS SUMMARY | 2025-02-28 08:47 | XMS_ITS | Patient Health Record ---
Author Organization [facility] Address [address] [place] [address] Care Team Providers Care Workers' Compensation Magistrate Name Role Phone Ariela(inactive) Raul SHAH Primary Care Provider U shantelle Henry Jr Chetan Unavailable Allergies Allergen (clinical drug ingredient) Drug/Non Drug Allergy documented on EMR Reaction Allergy Type Onset Date Status acetaminophen / oxycodone Percocet Unknown Drug Allergy Active amoxicillin Amoxicillin Unknown Drug Allergy Act kina Reason For Referral No Information Medications Medication SIG (Take, Route, Fr equency, Duration) Notes Start Date End Date Status Bentyl 10 MG 1-2 capsules Orally Q 4-6 hours prn abdominal cramps and diarrhea for 30 days 10/25/2011 Active Gabapentin 100mg Act kina HumaLOG Active Social History Tobacco Use: Social History Observation Description Date Details (start date - stop date) Current Smoker NA - NA Tobacco Use/Smoking Question Answer Notes Patient is a current smoker How often do you smoke cigarettes? every day How many cigarettes a day do you smoke? 6-10 Section Notes: Tobacco use is less than one half pack per day; alcohol use is rarely. Problems Problem Type SNOMED Code ICD Code Onset Dates Problem Status W/U Status Risk Notes Problem Periumbilical pain (897932062) Abdominal pain, periumbilic (789.05) Active confirmed Plan Of Treatment No Information Insurance Providers Payer Name Payer Address Payer Phone Subscriber Number Group Number Insured Name Patient Relationship to Insured Coverage Start Date Coverage End Date [facility] [employer] [facility] [address] [address] [place], [place] [id number] POOJA RAMIREZ Self - patient is the insured Medical (General) History Medical History History ICD Code diabetes mellitus type 1 neuropathy fatty liver Surgical History Surgery Date(Month/Year) cholecystectomy
--- OUTSIDE RECORDS SUMMARY | 2025-02-28 08:47 | XMS_ITS | Encounter Summary ---
Author Organization [facility] Address [address] [place] [address] Care Team Providers Care Optometry Assistant Name Role Phone Linda Toney Primary Care Provider [phone] Reason for Visit * Reason Onset Date Comments PAC Patient Request Call Back 01/26/2025 Encounter Details Date Type Department Care Team (Late Contact Info) Description 01/26/2025 Telephone [facility] [address] [place] [phone] Battery Loader: Karo Cain Telephone Intake, Staff PAC Patient Request Call Back Social History [...] encounter Miscellaneous Notes * Telephone Encounter - Thais Edouard - 01/26/2025 10:30 AM EDT Please see TE from 11/24/24 PT is calling to see if the PA has been sent/approved Her appointment is 01/30/25 Please follow up [phone] Thank you documented in this encounter Plan of Treatment Upcoming Encounters Date Type Department Care Team (Late Contact Info) Description 03/09/2025 1:00 PM EDT Office Visit [facility] [address] [place] [phone] Battery Loader: Kelsy Castro MD [address] [place] [address] 03/13/2025 Hospital Encounter [facility] Operating Room [address] [place] [address] May Cortés MD [address] [place] [address] Scheduled Procedures Name Priority Associated Diagnoses Date/Ti me EXCISION, SKIN AND SUBCUTANE OUS TISSUE, WITH REPAIR Hidradenitis suppurativa of multiple sites documented as of this encounter Visit Diagnoses Not on filedocumented in this encounter Care Teams Optometry Assistant Relationship Specialty Start Date End Date Linda Toney [address] [place] [address] PCP - General Internal Medicine 03/25/24 documented as of this encounter
== END 2025-02-28 09:58 | disposition home or self-care (01) ==
LOC: HO.HMCC 08:36
PROVIDERS: PCP Internal Medicine; Visit Provider Internal Medicine
DX: I49.8 Other specified cardiac arrhythmias (principal); E78.5 Hyperlipidemia, unspecified; E11.9 Type 2 diabetes mellitus without complications; Z00.00 Encounter for general adult medical examination without abnormal findings

== ENCOUNTER → 2025-02-28 13:03 | Outpatient (BNV) | payer OTHER, SELFPAY | PROVIDERS: PCP Internal Medicine; Visit Provider Radiology Diagnostic Radiology | DX: J34.89 Other specified disorders of nose and nasal sinuses (principal) | CPT/HCPCS: 70220 ==

== ENCOUNTER 2025-06-06 09:00 | Outpatient (AMB) | payer BC, SELFPAY ==
[2025-06-06 09:15] VITALS: BP 120/76; PULSE 76; RESP 16; TEMP 36.6; O2SAT 100; BMI 30.4
--- NOTE | 2025-06-06 09:15 | A.OFFPC_ITS ---
Vital Signs 06/06/25 09:15 Height 5 ft 7 in Weight 194 lb BMI 30.4 BP 120/76 Blood Pressure Location Lt brachial Position Sitting Respiration 16 Pulse 76 Pulse Source Pulse Oximeter Temp 97.9 F Temp Source Oral Pulse Oximetry (%) 100 Oxygen Delivery Method Room Air Intake Visit Reasons: Rectal bleeding Intake Note: Pt is here today for a sick visit. Pt c/o rectal bleeding for over a month. Allergies sulfamethoxazole (From Bactrim) Allergy (Mild, Verified 06/06/25 09:17) RASH trimethoprim (From Bactrim) Allergy (Mild, Verified 06/06/25 09:17) RASH oxycodone Allergy (Unknown, Verified 06/06/25 09:17) hives rash penicillin V Allergy (Unknown, Verified 06/06/25 09:17) hives, rash Sulfa (Sulfonamide Antibiotics) Allergy (Unknown, Verified 06/06/25 09:17) rash amoxicillin (Amoxicillin) Adverse Reaction (Mild, Verified 06/06/25 09:17) CANT FEEL LEGS Adhesive tape Allergy (Unknown, Uncoded 06/06/25 09:17) Rash Bactrim Allergy (Unknown, Uncoded 06/06/25 09:17) Anaphylaxis From PERCOCET Allergy (Unknown, Uncoded 06/06/25 09:17) RASH PCN Allergy (Unknown, Uncoded 06/06/25 09:17) Anaphylaxis Percocet Allergy (Unknown, Uncoded 06/06/25 09:17) Rash Medication List - Last Reconciled 06/06/25 by Linda Toney MD cholecalciferol (vitamin D3) 50 mcg PO DAILY empagliflozin (Jardiance) 10 mg PO DAILY infliximab (Remicade) IV insulin lispro subcut insulin pump cart,cont inf,BT (Omnipod Dash Pods (Gen 4) subcutaneous cartridge) As directed insulin pump cartridge As directed [MuSK antibody levels As directed] propranolol ER 160 mg PO DAILY pyridostigmine bromide 30 mg PO TID rosuvastatin 5 mg PO DAILY Tobacco use date assessed: 06/06/25 Dental Screening Dental Screen Date: 02/28/25 HPI Rectal bleeding HPI Details Patient presents complaining of hematochezia and bright red blood after having bowel movements for the last 2 weeks since she had plastic surgery for left axillary hidradenitis suppurativa. Patient denies change in bowel habits, constipation or diarrhea. Patient complains of intermittent left lower abdominal pain worse after eating. Patient reports decreased appetite and high blood glucose readings in upper 200s despite insulin pump. She denies fever or chills nausea or vomiting. [facility] Medical History Hypersomnia Loud snoring Diplopia Annual physical exam Normal Pap smear Hyperlipidemia POTS (postural orthostatic tachycardia syndrome) Migraine Hidradenitis suppurativa HTN (hypertension) MDD (major depressive disorder) Psoriasis IBS (irritable bowel syndrome) Palpitation Type 2 diabetes mellitus Surgical History Hx of cholecystectomy History of liver biopsy Family History Father Diabetes HTN (hypertension) Mother Multiple sclerosis Social History Household Members Other:: Student for respiratory therapy. Two children 11 and 18-year-old Housing: House Alcohol intake: current Alcohol intake frequency: does not drink Patient Tobacco Use Status: Former Tobacco user e-Cigarette/Vaping Use: Never Used service: No Current occupational status: unemployed Cognitive needs: No Hearing needs: No Vision needs: No Questionnaire Thrive Questionnaire Date Thrive assessed: 10/17/24 I am a: Patient What is your living situation today?: I have a steady place to live Within the past 12 months, did the food you bought not last and you didn't have the money to get more?: Never true Within the past 12 months, did you worry whether your food would run out before you got money to buy more?: Never true Do you have trouble paying for medicines?: Yes Do you have trouble getting transportation to medical appointments?: No Do you have trouble paying your heating and electricity bill?: No Do you have trouble taking care of your child, family member or friend?: No Do you have trouble with day-to-day activities such as bathing, preparing meals, shopping, managing finances, etc.?: No Are you currently unemployed and looking for a job?: No Are you interested in more education?: No Please select the resources that you would like help with: None Currently or been in a relationship where the following occur: No concerns reported THRIVE Score: 0 ROHIT-7 AMB Questionnaire ROHIT-7 Date ROHIT - 7 assessed: 10/19/24 Source: Developed by Drs. Arun Raphael, Galina Gil, Ang Smiley and colleagues, with an educational sharon from [employer]. Review of Systems Const All systems reviewed & are unremarkable except as noted in HPI and below Eyes Reports no additional complaints ENT Reports no additional complaints Card Reports no additional complaints Resp Reports no additional complaints GI Reports no additional complaints Physical exam (Primary Care) Vital Signs: Last Vital Signs Temp 97.9 F 06/06/25 09:15 Pulse 76 06/06/25 09:15 Resp 16 06/06/25 09:15 BP 120/76 06/06/25 09:15 Pulse Ox 100 06/06/25 09:15 Oxygen Delivery Method Room Air 06/06/25 09:15 BMI result Body Mass Index 30.4 Tobacco/Smoking Status: Tobacco use Status Tobacco use date assessed 06/06/25 06/06/25 09:19 Patient Tobacco Use Status Former Tobacco user 06/06/25 09:19 e-Cigarette/Vaping Use Never Used 06/06/25 09:19 Thrive Assessment: Date of Thrive Assessment Date Thrive assessed 10/17/24 06/06/25 09:19 Currently or been in a relationship where the following occur: No concerns reported Const General: no acute distress HENMT Head: Yes normal to inspection Resp Effort & Inspection: normal respiratory effort Auscultation: clear to auscultation bilaterally Cardio Rhythm: regular rhythm Heart sounds: S1 normal heart sound present and S2 normal heart sound present GI Inspection: Yes normal to inspection Palpation (GI): Soft to palpation and Tenderness to palpation present (GI) in the LLQ; with no rebound tenderness Auscultation: normal bowel sounds Rectal Exam - Female: visual inspection normal, normal sphincter tone and heme negative stool Coding Level of Care Code Est Pt Level 4 (55397) Diagnoses GI bleed K92.2 Type 2 diabetes mellitus E11.9 Assessment & Plan Assessment & Plan (1) GI bleed: Code(s): K92.2 - Gastrointestinal hemorrhage, unspecified Category: Medical Plan: Obtain CT of the abdomen and pelvis to rule out diverticulitis. CBC iron level comprehensive panel will be checked. Patient will be referred to GI. For any worsening of bleeding patient was advised to go to the ER (2) Type 2 diabetes mellitus: Comment: IDDM , Dr. Boland, on Insulin pump,last A1C 8.6 09/2020 Code(s): E11.9 - Type 2 diabetes mellitus without complications Category: Medical Plan: Continue insulin pump and Jardiance Orders: Orders CT abdomen pelvis w IV con Today K57.92 - Diverticulitis of intestine, part unspecified, without perforation or abscess without bleeding Comprehensive Met. Panel Today K92.2 - Gastrointestinal hemorrhage, unspecified Complete Blood Count Auto Diff Today K92.2 - Gastrointestinal hemorrhage, unspecified IRON PROFILE Today K92.2 - Gastrointestinal hemorrhage, unspecified Referrals Gastroenterology Referral K92.2 - Gastrointestinal hemorrhage, unspecified
--- OUTSIDE RECORDS SUMMARY | 2025-06-06 09:25 | XMS_ITS | Encounter Summary ---
Author Organization [facility] Address [address] [place] [address] Care Team Providers Care Soft Metals Hand Engraver Name Role Phone FengLinda Primary Care Provider [phone] Encounter Details Date Type Department Care Team (Late st Contact Info) Description 05/22/2025 Appbyme Message [facility] [address] [place] [phone] Application Support: Brittney Luna, Generic Provider [address] [place], [place] [id number] Weight Center Social History Tobacco Use Types Packs/Day Years Used Date Smoking Tobacco: Never Assessed Comments No Sex and Gender Information Value Date Recorded Sex Assigned at Female 03/25/2024 10:38 AM EDT Legal Sex Female 10:33 AM EDT Gender Identity Female 05/08/2024 3:54 PM EST Sexual Orientation Straight 05/08/2024 3: 54 PM EST documented as of this encounter Plan of Treatment Not on file documented as of this encounter Visit Diagnoses Not on filedocumented in this encounter Care Teams Soft Metals Hand Engraver Relationship Specialty Start Date End Date Linda Toney [address] [place] [address] PCP - General Internal Medicine 03/25/24 documented as of this encounter
--- OUTSIDE RECORDS SUMMARY | 2025-06-06 09:25 | XMS_ITS | Clinical Summary ---
Author Organization [facility] Address [address] [place] [address] Care Team Providers Care Long Term Care Administrator Name Role Phone Linda Toney Primary Care Provider [phone] Allergies Active Allergy Reactions Criticality Noted Date Comments Amoxicillin Hives,Itching,Rash Low 12/27/2015 Clindamycin Unknown 05/13/2024 Oxycodone Nausea And Vomiting 07/24/2017 GI upset Oxycodone-Acetaminophen Headache,Hives,L ighthead edness,Palpitations,Rash Low 01/28/2023 Penicillin Hives 01/28/2023 Sulfamethoxazole-Trimethopr im Dyspnea,Fatigue,Hives,Ra sh,Unknown High 12/27/2015 Medications camille peroxid/hydroco rt/ (CAMILLE PEROX-HC & CLEANSER NO.14 TOP) 09/16/2023 Active benzoyl peroxide 10% cleanser SMARTSIG:Top ical Daily 03/17/2024 Active blood-glucose meter,continuou s (Dexcom G7 Manager Data) misc by Other route once daily as needed. 05/10/2024 Active blood-glucose sensor (Dexcom G6 Sensor) device 1 each by Other route. 04/21/2024 Active cyclobenzaprine (FLEXERIL) 10 mg tablet SMARTSI Tablet(s) By Mouth Every Night 09/14/2023 Active insulin lispro protamin-lispro (HumaLOG Mix 50-50 Insuln U-100) 100 unit/mL (50-50) suspension Inject 2.35 Units under the skin continuously . 08/17/2003 Active Jardiance 10 mg SMARTSI Tablet(s) By Mouth Daily 04/08/2025 Active acetaminophen (TYLENOL) 325 mg tablet Take 2 tablets (650 mg total) by mouth every 6 hours. 05/05/2025 Active HYDROmorphone (DILAUDID) 2 mg tablet Take 1 tablet (2 mg total) by mouth every 4 hours as needed (breakthroug h pain) for up to 3 days. Max Daily Amount: 12 mg 8 tablet 05/05/2025 05/08/20 25 Hospital, Clinic, or Other Facility Administered Medication Ordered Dose Route Frequency Start Date End Date Status zinc oxide 20% ointment topical Once 05/23/2025 05/23/2025 E nded Active Problems Problem Noted Date Diagnosed Date [...] Dx 07/2022 followed by retina specialist in [place]. Left eye ptosis and intermittent double vision since 2022-[place] [facility] [place] Right carotid stenosis. Resolved Problems Problem Noted Date Diagnosed Date Resolved Date Disease due to severe acute respiratory syndrome coronavirus 2 (SARS-CoV-2) 02/22/202209/04 Overview (09/29/2024): Problem added by Discern Expert Encounters Date Type Department Care Team Description 05/31/2025 Documentation [facility] 4th Floor [address] [place] [phone] Stock Mixer: Gardenia Mascorro, RN 05/23/2025 2:00 PM EST Follow-Up [facility] [address] [place] [phone] Stock Mixer: Lucero Smith PA Surgery follow-up (Primary Dx) 05/22/2025 myChart Message [facility] [address] [place] [phone] Stock Mixer: Brittney Luna [facility] 05/22/2025 myChart Message [facility] Wound [address] [address] Stock Mixer: Angelica Paulson PA Picture 05/22/2025 Telephone [facility] Wound [address] [address] Stock Mixer: Brittney Richards Telephone Intake, Staff 05/18/2025 11:30 AM EST Follow-Up [facility] Wound [address] [address] Stock Mixer: Angelica Paulson PA Surgery follow-up (Primary Dx) 05/18/2025 Documentation [facility] 4th Floor [address] [place] [phone] Stock Mixer: Gardenia Mascorro, RN 05/16/2025 Documentation [facility] 4th Floor [address] [place] [phone] Stock Mixer: Gardenia Mascorro, RN 05/16/2025 myChart Message [facility] 4th Floor [address] [place] [phone] Stock Mixer: Gardenia Mascorro, clinical transformation specialist 05/05/2025 12:50 PM EDT Anesthesia Event [facility] Operating Room [address] [place] [address] Fco Odom MD Manning, Dana, CRNA 05/05/2025 12:15 PM EDT - 05/05/2025 1:45 PM EDT Surgery [facility] Operating Room [address] [place] [address] May Cortés MD EXCISION, SKIN AND SUBCUTANEOUS TISSUE, WITH REPAIR left breast [02860 (CPT )] 05/05/2025 9:23 AM EDT - 05/05/2025 3:23 PM EDT Hospital Encounter [facility] Operating Room [address] [place] [address] May Cortés MD Hidradenitis suppurativa of multiple sites Discharge Disposition: Home or Self Care (01) 05/03/2025 1:15 PM EDT Follow-Up [facility] [address] [place] [address] Stock Mixer: May Nguyen MD Hidradenitis suppurativa of multiple sites (Primary Dx) 05/02/2025 Telephone [facility] 4th Floor [address] [place] [phone] Stock Mixer: Allen Brooks [place] 05/02/2025 Orders Only [facility] 4th Floor [address] [place] [phone] Stock Mixer: Gabriela Garcia MD Hidradenitis suppurativa of multiple sites (Primary Dx) 04/21/2025 myChart Message [facility] 4th Floor [address] [place] [address] [place] [phone] Stock Mixer: Karo Gibson, Kelsy Wolf MD INFLECTRA from Last 3 Months Immunizations Immunization Administration [...] Sign Reading Time Taken Comments Blood Pressure 127/83 05/05/2025 2:45 PM EDT Pulse 85 05/05/2025 2:45 PM EDT Temperature 36.7 C (98.1 F) 05/05/2025 1:49 PM EDT Respiratory Rate 11 05/05/2025 2:45 PM EDT Oxygen Saturation 98% 05/05/2025 2:45 PM EDT Inhaled Oxygen Concentration - - Weight 90.5 kg (199 lb 8.3 oz) 05/05/2025 12:09 PM EDT Height 169.1 cm (5' 6.58 ) 05/05/2025 12:09 PM E DT Body Mass Index 31.65 05/05/2025 12:09 PM EDT Plan of Treatment Health Maintenance Due Date [...] Years) (1 of 2 - PCV) 01/04/2003 Alcohol/Substance Use Screening 07/06/2024 Depression Screening and Follow-Up 07/06/2024 Social Drivers of Health Chandni ual Screening 07/06/2024 Influenza Vaccine (#1) 2025 , 03/29/2020, 06/06/2019, Additional history exists COVID-19 Vaccine (5 - 2024-2 6 season) 2025 11/03/2020, 10/04/2020, 09/07/2020, Additional history exists Hemoglobin A1C 10/06/2025 04/07/2025, 10/05, 01/25/2024, Additional history exists Mammogram 2026 01/06/2024, 12/12/2021 Basic Metabolic Panel 04/07/2026 04/07/2025 , 10/29/2024, 01/25/2024 DTaP,Tdap,and Td Vaccines (2 - Td or Tdap) 01/14/2032 01/13/2022 HIV Screening Completed 05/13/2024 Hepatitis C Screening Completed 05/13/2024 Procedures * Due to [place] [employer] law, this organization might not be sharing negative HIV tests. Procedure Name Priority Date/Time Associated Diagnosis Comments TISSUE EXAM Routine 05/05/2025 1:23 PM EDT Hidradenitis suppurativa of multiple sites MO EXC SWEAT GLAND LESN AXILL,SIMPL 05/05/2025 12:25 PM EDT Hidradenitis suppurativa of multiple sites Special Needs HEPATITIS C ANTIBODY W/REFLEX TO HCV RNA, QUANTITATIVE PCR Routine 05/13/2024 9:42 AM EST High risk medication use HM MAMMOGRAPHY, BILATERAL 01/06/2024 from Last 3 Months or Most Recently Relevant to Health Maintenance Results * Due to [place] [employer] law, this organization might not be sharing negative HIV tests. * Tissue Exam (05/05/2025 1:23 PM EDT) Final Diagnosis Soft Tissue, Left Breast Wound, Excision: - Reactive hairbearing skin with marked mixed acute and chronic inflammation, granulation tissue formation, and giant cell reaction. - Soft tissue margin with focal acute inflammation. - Negative for dysplasia or carcinoma. [facility] MANUAL 05/09/2025 11:39 AM [facility] at 1139 EST Clinical History Pre-op diagnosis: Hidradenitis suppurativa of multiple sites [L73.2] [facility] MANUAL 05/09/2025 11:39 AM [facility] Gross Description 1. Breast, Left The specimen is received in formalin, labeled with the patient's name, medical record number, date of , and left breast wound . It consists of a 4.0 x 1.8 cm unoriented ovoid garrett-pink skin excision that is excised with depth of 1.3 cm. The skin surface is focally red and erythemic. The soft tissue margin is inked black and the specimen is serially sectioned. The soft tissue underlying the skin surface is pink-red, soft, edematous and blue-tinged due to possible injected dye. The remainder the cut surface is campos yellow and fatty. Medical Records Administrator sections are submitted as follows: 1A: Opposing ends, en face 1B-1D: Cross-sections of body [facility] MANUAL 05/09/2025 11:39 AM [facility] Gross Description User Grossing complete by Jazmin Doss on 05/05/2025 2:41 PM [facility] MANUAL 05/09/2025 11:39 AM [facility] Embedded Images [facility] MANUAL 05/09/2025 11:39 AM [facility] [employer] [facility] Resulting Agency Case was signed out at [facility], Department of Pathology, [employer] 3 CLIA [id number] [facility] MANUAL 05/09/2025 11:39 AM [facility] Report Header Surgical Pathology Report Case: [id number] Authorizing Provider: May Cortés MD Collected: 05/05/2025 1323 Ordering Location: [facility] Received: 05/05/2025 1414 [facility] Operating Room Pathologist: Sapna Guzman MD PhD Specimen: Breast, Left, Left Breast Wound 05/09/2025 11:39 AM EST [facility] Tissue Left breast structure / Unknown 05/05/2025 1:23 PM EDT 05/05/2025 2:14 PM EDT Comment:Pre-op diagnosis: Hidradenitis suppurativa of multiple sites [L73.2] us May Cortés MD LAB PATHOLOGY/CYTOLOGY ORDE DEJA Final Result [facility] [address] [place] [address], [facility] [address] [place] [address], * Hepatitis C Antibody w/Reflex to HCV RNA, Quantitative PCR (05/13/2024 9:42 AM EST) Hepatitis C Antibody NON-REACT RIVKA NON-REACT RIVKA 05/13/2024 7:42 PM EST [employer] Comment: HCV antibody was non-reactive. There is no laboratory evidence of HCV infection. In most cases, no further action is required. However, if recent HCV exposure is suspected, a test for HCV RNA (test code 05285) is suggested. For additional information please refer to http://education.Runnit/faq/IEN15b8 (This link is being provided for informational/ educational purposes only.) Blood Structure of peripheral vein / Unknown Venipuncture / Unknown 05/13/2024 9:42 AM EST 05/13/2024 9:42 AM EST Narrative [facility] 05/13/2024 7:42 PM EST [facility] Received Date: us Kelsy Gibson MD LAB BLOOD ORDERABLES Final R esult TEA [address], [place] [address], [place] [phone] [employer] Twitter Dashboard [facility] [address] [facility] 3rd Floor, [place] [address], [place] [phone] * HM Mammography, Bilateral (01/06/2024) Anatomical Region Laterality Modality Other 01/06/2024 us Onbase Scan [facility] Final Resu lt from Last 3 Months or Most Recently Relevant to Health Maintenance Insurance [facility] OUT OF STATE PPO Advance Directives * Full Code (Latest Code Status on File) Date Activated Date Inactivated Comments 05/05/2025 12:12 PM 05/05/2025 5:23 PM Care Teams Long Term Care Administrator Relationship Specialty Start Date End Date Linda Toney [address] [place] [address] PCP - General Internal Medicine 03/25/24
--- OUTSIDE RECORDS SUMMARY | 2025-06-06 09:25 | XMS_ITS | Encounter Summary ---
Author Organization [facility] Address [address] [place] [address] Care Team Providers Care Standards Analyst Name Role Phone Linda Toney Primary Care Provider [phone] Encounter Details Date Type Department Care Team (Late st Contact Info) Description 05/22/2025 myChart Message [facility] [address] [place] [address] [phone] Directional Driller: Angelica Paulson PA [address] [place] [address] [phone] Picture Social History Tobacco Use Types Packs/Day Years [...] on filedocumented in this encounter Care Teams Standards Analyst Relationship Specialty Start Date End Date Linda Toney [address] [place] [address] PCP - General Internal Medicine 03/25/24 documented as of this encounter
--- OUTSIDE RECORDS SUMMARY | 2025-06-06 09:25 | XMS_ITS | Clinical Summary ---
[facility] Address [address] [place] [address] Care Team Providers Care Jigsawyer Name Role Phone Raul Titus MD Primary Care Provider [phone] Surgical History Surgery Date Site/Laterality Comments CHOLECYSTECTOMY PROCEDURE:CHOLECYSTECTOMY DENTAL SURGERY PROCEDURE:DENTAL SURGERY INGUINAL HIDRADENITIS EXCISION 07/27/2017 Left PROCEDURE:INGUINAL HIDRADENITIS EXCISION;COMMENT:Procedure: EXCISION HIDRADENITIS INGUINAL LEFT; Surgeon: Josie Rivera MD; Location: [facility] MAIN OPERATING ROOM; Service: General; [...] Cervical Cancer Screening: P ap Smear 01/04/2005 HPV Vaccines (1 - 3-dose SCD M series) 01/04/2011 Depression Screening 07/06/2024 COVID-19 Vaccine ( - 2024-2 6 season) 2025 Influenza Vaccine (#1) 2025 RSV Immunization Adult Patie nts (1 - 1-dose 75+ series) 01/04/2059 HIB Vaccines Aged Out No longer eligi [...] age to complete this topic Care Teams Jigsawyer Relationship Specialty Start Date End Date Raul Titus MD [address] [place] [address] Dr [address] MAYRA José PCP - General 07/24/17
--- OUTSIDE RECORDS SUMMARY | 2025-06-06 09:25 | XMS_ITS | Encounter Summary ---
Author Organization [facility] Address [address] [place] [address] Care Team Providers Care Cosmetics Presser Name Role Phone Linda Toney Primary Care Provider [phone] Encounter Details Date Type Department Care Team (Late st Contact Info) Description 05/16/2025 myChart Message [facility] [address]th [address] [place] [address], [place] [address] Secretary: Gardenia Mascorro, special education bus driver Social History Tobacco Use Types Packs/Day Years [...] on filedocumented in this encounter Care Teams Cosmetics Presser Relationship Specialty Start Date End Date Linda Toney [address] [place] [address] PCP - General Internal Medicine 03/25/24 documented as of this encounter
--- OUTSIDE RECORDS SUMMARY | 2025-06-06 09:25 | XMS_ITS | Clinical Summary ---
Author Organization [facility] Address [address] [place] [address] Phone Care Team Providers Care Medical Staff Manager Name Role Phone Linda Toney MD Primary Care Provider [phone] Allergies Active Allergy Reactions Criticality Noted Date Comments Amoxicillin Hives,Rash Low 12/27/2015 Clindamycin Unknown 05/13/2024 Oxycodone Nausea And Vomiting 07/24/2017 GI upset Oxycodone-Acetaminophen Headaches,Hives, Lighthea dedness,Palpitations,Calin h Low 01/28/2023 Penicillin Hives 01/28/2023 Sulfamethoxazole-Trimethopr im Fatigue,Hives,Rash,Short ness Of Breath,Unknown High 12/27/2015 Medications propranoloL (INDERAL LA) 160 mg SR capsule [...] other day. 180 each 3 025 Active insulin aspart U-100 (NOVOLOG) 100 unit/mL injection vialIndications: 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, macular edema presence unspecified, unspecified laterality, unspecified proliferative retinopathy type Inject 100 Units under the skin continuous. via insulin pump 90 mL 2 Active rosuvastatin (CRESTOR) 5 MG tablet Take 1 tablet (5 mg total) by mouth daily. 30 tablet 2 Active levonorgestreL (MIRENA) 21 mcg/24hr (up to 8 yrs) 52 mg intrauterine device 1 Device by Intrauterine route. Active cholecalciferol (VITAMIN D3) 2,000 unit capsule Take 1 capsule (2,000 Units total) by mouth daily. 90 capsule 1 Active JARDIANCE 10 mg tablet TAKE 1 TABLET BY MOUTH EVERY DAY 30 tablet 3 Active JARDIANCE 10 mg tablet TAKE 1 TABLET BY MOUTH EVERY DAY 30 tablet 3 2024 Discontinued Active Problems Problem Noted Date Diagnosed Date Carotid stenosis, asymptomatic, right 04/10/2025 Assessment & Plan (04/13/2025 11:15 PM EDT): 0 to 49% stenosis of the right proximal ICA noted on carotid duplex in 02/2023. Recent LDL was over target at 96. We discussed pros and cons of adding a statin to lower LDL below 70 for primary CVD prevention. Patient is using an IUD for control. -Start Crestor 5 mg nightly -Repeat fasting lipids and LFTs in 3 months Type 1 diabetes mellitus with hyperglycemia 08/07 [...] in 07/2022, followed by retina specialist in [place]. Left eye ptosis and intermittent double vision since 2022- followed by Dr. Rock at [facility] [place] neuro. Right carotid stenosis. Questioning the type [...] D deficiency, unspecified 08/02/2023 Assessment & Plan (04/13/2025 11:16 PM EDT): History of low vitamin D level. Last D level was slightly low at 21 in 07/2023 while not on vitamin D supplement. She has not started any vitamin D supplement. -Add 2000 IU D3 daily -Repeat 25-OHD with next labs Assessment & Plan (02/06/2024 6:19 PM EDT): [...] pump in place 01/28/2023 Assessment & Plan (04/13/2025 10:58 PM EDT): Using OmniPod 5 with Dexcom G7 Assessment & Plan (12/01/2024 12:59 PM EDT): She is using the omnipod 5 and using the dexcom G6 and getting supplies from [employer] Assessment & Plan (05/19/2024 4:34 PM EST): She is using the omnipod 5 and using the dexcom G6 and getting supplies from [employer] Assessment & Plan (02/06/2024 6:02 PM EDT): She is using the omnipod 5 and getting supplies from [employer] and using the dexcom G6 and getting supplies from [employer] Assessment & Plan (11/06/2023 11:41 AM EDT): She is using the omnipod 5 and getting supplies from [employer] and using the dexcom G6 and getting supplies from [employer] Assessment & Plan (08/02/2023 4:45 PM EST): She is using the omnipod 5 and getting supplies from [employer] and using the dexcom G6 and getting supplies from [employer] Assessment & Plan (01/28/2023 3:39 PM EDT): She is using the omnipod 5 and getting supplies from [employer] and using the dexcom G6 and getting supplies from [employer] Type 1 diabetes mellitus with proliferative reti nopathy 07/07/2000 01/28/2023 Overview (04/13/2025): GDM 2002 treated with metformin. metformin for few months then DKA and switch to basal/bolus insulin. MiniMed pump 2004. CGM added around 2005. Changed to OmniPod with Dexcom around 2021. OmniPod 5 with Dexcom. Symptomatic PNP. Had nerve conduction studies in 2009. Left diabetic retinopathy Dx 07/2022 followed by retina specialist in [place]. Left eye ptosis and intermittent double vision since 2022-followed by Dr. Rock at [facility] neuro. Right carotid stenosis. C-peptide measured in 07/2023 which was low normal at 1.4 while glucose level was 171. Her eulogio 65 and islet cell antibody were undetectable. She may actually have type 2 diabetes considering the measurable C-peptide levels about 22 years after her diabetes diagnosis. Jardiance added in 08/2024 Assessment & Plan (04/13/2025 11:12 PM EDT): Improved control within the last year. She had negative EULOGIO 65 antibodies and a measurable, low normal C-peptide level in 07/2023 while glucose was 171- measured 22 years after her diabetes was diagnosed last raising question of type 2 diabetes. She was started on Jardiance in 08/2024 which patient feels that it helped with her control. A1c 7.2% recently while using the OmniPod 5 with Dexcom G7. She did have some issues filling her pump/sensor supplies within the last few months while she was between jobs. No frequent or severe hypoglycemia. Some dip in blood sugars postprandially. -Decrease meal boluses by using an insulin to carb ratio of 1:1.5 from current 1:1 -Call with blood sugar problems -Fasting labs in 3 months -Add Crestor, see below Assessment & Plan (05/19/2024 4:35 PM EST): [...] her glucose [facility]. [facility] Assessment & Plan (02/06/2024 6:22 [...] her glucose levels. Up to date with [facility]. 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, macular edema presence unspecified, unspecified laterality, unspecified proliferative retinopathy type (Primary Dx); Type 1 diabetes mellitus with hyperglycemia; Vitamin D deficiency, unspecified; Insulin pump in place; Carotid stenosis, asymptomatic, right 04/10/2025 Transcribe Orders [facility] [address] [place] [address] Nataliia Mortensen PA-C Type 1 diabetes mellitus with hyperglycemia (Primary Dx) 04/07/2025 4:17 PM EDT - 04/07/2025 11:59 PM EDT Hospital Encounter [facility] [address] [address] Nataliia Mortensen PA-C Discharge Disposition: Home or Self Care 04/05/2025 Telephone [facility] [address] [place] [address] Yesika Joiner MA 03/08/2025 Telephone [facility] [address] [place] [address] [place] [id number] Liz Raymond MA Medication Prior Authorization from [...] Sign Reading Time Taken Comments Blood Pressure 112/80 04/10/2025 10:43 AM EDT Pulse 85 04/10/2025 10:43 AM EDT Temperature 36.3 C (97.3 F) 07/27/2023 9:44 AM EST Respiratory Rate 20 04/10/2025 10:43 AM EDT Oxygen Saturation 98% 04/10/2025 10:43 AM EDT Inhaled Oxygen Concentration - - Weight 88 kg (194 lb) 04/10/2025 10:43 AM EDT Height 170 cm (5' 6.93 ) 11/11/2024 1:27 PM EDT Body Mass Index 30.45 11/11/2024 1:27 PM EDT Plan of Treatment Upcoming Encounters Date Type Department Care Team (Late st Contact Info) Description 07/14/2025 8:00 AM EST Office Visit [facility] [address] [place] [address] [place] [address] Nataliia Mortensen PA-C [address] [place] [phone] 10/18/2025 2:00 PM EDT Office Visit [facility] [address] [place] [address] [place] [address] Karissa Boland MD [address] [place] [address] Health Maintenance Due Date Last Done Comments Adult Td,Tdap Booster 1984 DEPRESSION SCREENING 1996 SMOKING Hx and SMOKELESS TOBACCO SCREENING 01/04/1997 HIV ONE-TIME SCREENING (18-65 YEARS) 01/04/2002 PNEUMOCOCCAL VACCINES (0-49 years) (1 of 2 - PCV) 01/04/2003 PAP SMEAR 01/04/2005 DIABETIC EYE EXAM 01/28/2023 URINE MICROALBUMIN/CREATININE RATIO 01/28/2023 INFLUENZA VACCINE (#1) 2025 , 03/29/2020, 06/06/2019, Additional history exists COVID-19 VACCINE ( season) 2025 11/03/2020, 10/04/2020, 09/07/2020, Additional history exists HEMOGLOBIN A1C 10/06/2025 04/07/2025, 04/2 12/2024, 01/25/2024, Additional history exists BLOOD PRESSURE 10/09/2025 04/10/2025 MAMMOGRAM 2026 01/06/2024, 12/12/2021 LIPID PANEL 04/07/2026 04/07/2025, 01/25/2024 HEPATITIS C SCREENING Completed 05/13/2024 HEPATITIS A [...] Date/Time Associated Diagnosis Comments HEMOGLOBIN A1C Routine 04/07/2025 4:27 PM EDT Type 1 diabetes mellitus with hyperglycemia BASIC METABOLIC PANEL (BMP) Routine 04/07/2025 4:27 PM EDT Type 1 diabetes mellitus with hyperglycemia ALANINE AMINOTRANSFERASE (ALT) Routine 04/07/2025 4:27 PM EDT Type 1 diabetes mellitus with hyperglycemia ASPARTATE AMINOTRANSFERASE (AST) Routine 04/07/2025 4:27 PM EDT Type 1 diabetes mellitus with hyperglycemia LIPID PANEL Routine 04/07/2025 4:27 PM EDT Type 1 diabetes mellitus with hyperglycemia TSH WITH REFLEX Routine 04/07/2025 4:27 PM EDT Type 1 diabetes mellitus with hyperglycemia from Last 3 Months Results * TSH with reflex (04/07/2025 4:27 PM EDT) TSH 0.81 0.27 - 4.20 uIU/mL [facility] Blood 04/07/2025 4:27 PM EDT 04/07/2025 6:27 PM EDT Nataliia Mortensen PA-C LAB BLOOD BKR ORDE DEJA Final Result Performing Organization Address [facility]/ZIP Co de Phone Number [address] [address] * Alanine aminotransferase (ALT) (04/07/2025 4:27 PM EDT) ALT 29 0 - 40 U/L [facility] Blood 04/07/2025 4:27 PM EDT 04/07/2025 6:27 PM EDT Nataliia Mortensen PA-C LAB BLOOD BKR ORDE DEJA Final Result Performing Organization Address [facility]/ZIP Co de Phone Number [address] [address] * Aspartate aminotransferase (AST) (04/07/2025 4:27 PM EDT) AST 28 0 - 37 U/L [facility] Blood 04/07/2025 4:27 PM EDT 04/07/2025 6:27 PM EDT Nataliia Mortensen PA-C LAB BLOOD BKR ORDE RABMIKE Final Result Performing Organization Address City/[facility]/ZIP Co de Phone Number [address] [address] * (ABNORMAL) Hemoglobin A1c (04/07/2025 4:27 PM EDT) HEMOGLOBIN A1C 7.2(H) 4.3 - 5.8 % [facility] Blood 04/07/2025 4:27 PM EDT 04/07/2025 4:30 PM EDT us Nataliia Mortensen PA-C LAB BLOOD BKR DALL[place] VITALEMIKE Final Result Performing Organization Address [facility] Co de Phone Number [address] [address] * (ABNORMAL) Lipid panel (04/07/2025 4:27 PM EDT) HDL 35 mg/dL [facility] Comment: Interpretation <40 mg/dL: Low HDL cholesterol (major risk factor for CHD) Greater than or equal to 60 mg/dL: High HDL cholesterol ( negative risk factor for CHD) HDL - cholesterol is affected by a number of factors, e.g. smoking, excerise, hormones, sex and age. CHOLESTEROL 183 0 - 240 mg/dL [facility] TRIGLYCERIDES 260(H) 30 - 160 mg/dL [facility] LDL 96 50 - 129 mg/dL [facility] Comment: LDL levels in terms of risk for coronary heart disease: <100 mg/dL: Optimal 100-129 mg/dL: Near or above optimal 130-159 mg/dL: Borderline high 160-189 mg/dL: High >190 mg/dL: Very High CARDIAC RISK RATIO 5.2(H) 3.3 - 4.4 C [facility] Blood 04/07/2025 4:27 PM EDT 04/07/2025 4:31 PM EDT Nataliia Mortensen PA-C LAB BLOOD BKR ORDDominga DEJA Final Result Performing Organization Address [facility]/ZIP Co de Phone Number [address] [address] * (ABNORMAL) Basic metabolic panel (04/07/2025 4:27 PM EDT) SODIUM 138 133 - 146 mmol/L [facility] CHLORIDE 105 96 - 108 mmol/L [facility] POTASSIUM 3.4 3.3 - 5.1 mmol/L [facility] Comment:Specimen slightly he molyzed, result may be falsely elevated. CO2 22 21 - 35 mmol/L [facility] BUN 13 6 - 19 mg/dL [facility] CREATININE 0.70 0.5 - 1.5 mg/dL [facility] GLUCOSE 106(H) 70 - 99 mg/dL [facility] CALCIUM 9.2 8.4 - 10.3 mg/dL [facility] EGFR 111 >59 mL/min/1.7 3m2 [facility] Comment:Estimated glomerular filtration rate calculated using the CKD-EPI refit equation. ANION GAP 14 10 - 20 mmol/L [facility] Blood 04/07/2025 4:27 PM EDT 04/07/2025 6:27 PM EDT us Nataliia Mortensen PA-C LAB BLOOD BKR [place] SHORT Final Result [facility] [address] [place], [place] [id number] from Last [address] [place] [address] [place] [address] NON NSPG PCP [facility] NON NSPG PCP [employer] [facility] NON NSPG PCP [employer] NON NSPG PCP S[employer] [facility] NON NSPG PCP [employer] [facility] Member Subscriber Plan / Payer (Ef fective 2025-Present) Name:Ebony Varghese Relation to Subscriber:Self Name:Ebony Varghese Payer ID:[id number] Type:HMO Address: [id number] [place] [address] [facility] NON NSP PCP [facility] Member Subscriber Plan / Payer (Ef fective 2025-Present) Name:Ebony Vagrhese Relation to Subscriber:Self Name:Ebony Varghese Payer ID:[id number] Type:HMO Address: [id number] [place] [address] Care Teams Medical Staff Manager Relationship Specialty Start Date End Date Linda Toney MD [address] [place] [address] PCP - General Internal Medicine 01/19/23 Additional Source Comments The information contained in this document represents components of the legal health record. It is not the complete legal health record.[facility]
--- OUTSIDE RECORDS SUMMARY | 2025-06-06 09:25 | XMS_ITS | Clinical Summary ---
Author Organization [facility] Address [address] [place] [address] Care Team Providers Care Cloth Beamer Name Role Phone Raul Titus Primary Care [...] age to complete this topic Care Teams Cloth Beamer Relationship Specialty Start Date End Date Raul Titus DO [address] [place] [address] PCP - General 07/24/17
--- OUTSIDE RECORDS SUMMARY | 2025-06-06 09:25 | XMS_ITS | Encounter Summary ---
Author Organization [facility] Address [address] [place] [address] Care Team Providers Care Director Food And Beverage Name Role Phone Linda Toney Primary Care Provider [phone] Encounter Details Date Type Department Care Team (Late st Contact Info) Description 12/28/2024 Telephone [facility] Financial Clearance Department [address] [place] [address] Linda Toney [address] [place] [address] Social History Tobacco Use Types Packs/Day Years [...] documented in this encounter Plan of Treatment Not on file documented as of this encounter Visit Diagnoses Not on filedocumented in this encounter Care Teams Director Food And Beverage Relationship Specialty Start Date End Date Linda Toney [address] [place] [address] PCP - General Internal Medicine 03/25/24 documented as of this encounter
--- OUTSIDE RECORDS SUMMARY | 2025-06-06 09:25 | XMS_ITS | Encounter Summary ---
Author Organization [facility] Address [address] [place] [address] Care Team Providers Care Laboratory Machinist Name Role Phone Linda Toney Primary Care Provider Encounter Details Date Type Department Care Team (Late st Contact Info) Description 02/10/2025 [employer] Message [facility] Operating Room [address] [place] [address] Mychart, Generic Provider [address] [place], [place] [id number] Questionnaire Submission Social History Tobacco Use Types [...] on filedocumented in this encounter Care Teams Laboratory Machinist Relationship Specialty Start Date End Date Linda Toney [address] [place] [address] PCP - General Internal Medicine 03/25/24 documented as of this encounter
--- OUTSIDE RECORDS SUMMARY | 2025-06-06 09:25 | XMS_ITS | Encounter Summary ---
Author Organization [facility] Address [address] [place] [address] Care Team Providers Care Maintenance Chief Name Role Phone Linda Toney Primary Care Provider [phone] Encounter Details Date Type Department Care Team (Late st Contact Info) Description 05/31/2025 Documentation [facility] 4th Floor [address] [facility], [place] [id number] Engineer/Conductor: Gardenia Mascorro RN Social History Tobacco Use Types Packs/Day Years Used Date Smoking Tobacco: Never Assessed Comments No Sex and Gender Information Value Date Recorded Sex Assigned at Female 03/25/2024 10:38 AM EDT Legal Sex Female 10:33 AM EDT Gender Identity Female 05/08/2024 3:54 PM EST Sexual Orientation Straight 05/08/2024 3: 54 PM EST documented as of this encounter Progress Notes * Gardenia Ch RN - 05/31/2025 1:01 PM EST LOMN sent to provider for signature via [employer] to be sent for expedited appeal to insurance revised and forwarded to for signature last seen patient in September and last note April . documented in this encounter Plan of Treatment Not on file documented as of this encounter Visit Diagnoses Not on filedocumented in this encounter Care Teams Maintenance Chief Relationship Specialty Start Date End Date Linda Toney [address] [place] [address] PCP - General Internal Medicine 03/25/24 documented as of this encounter
--- OUTSIDE RECORDS SUMMARY | 2025-06-06 09:25 | XMS_ITS | Encounter Summary ---
Author Organization [facility] Address [address] [place] [address] Care Team Providers Care Prior Authorization Technician Name Role Phone Lnida Toney Primary Care Provider [phone] Encounter Details Date Type Department Care Team (Late st Contact Info) Description 09/06/2024 Orders Only [facility] [address] [place] [address] Reba Leija, PharmD Social History Tobacco Use [...] on filedocumented in this encounter Care Teams Prior Authorization Technician Relationship Specialty Start Date End Date Linda Toney [address] [place] [address] PCP - General Internal Medicine 03/25/24 documented as of this encounter
== END 2025-06-06 12:44 | disposition home or self-care (01) ==
LOC: HO.HMCC 09:01
PROVIDERS: PCP Internal Medicine; Visit Provider Internal Medicine
DX: K92.2 Gastrointestinal hemorrhage, unspecified (principal); E11.9 Type 2 diabetes mellitus without complications

== ENCOUNTER 2025-06-06 09:00 | Outpatient (REF) | payer BC, SELFPAY ==
[2025-06-06 13:51] LABS: MANUAL DIFF FLAG NO
[2025-06-06 13:59] LABS: Hematocrit 44.2 % (37.0-47.0); Hemoglobin 14.7 g/dl (12.0-16.0); Imm Gran Abs Auto 0.08 X10*3/uL (0.00-0.03); Imm Gran Pct Auto 0.8 % (0.0-0.4); Lymphocytes Absolute Auto 2.6 X10*3/uL (1.2-4.9); Mean Corpuscular HGB Conc 33.3 g/dl (31.0-35.0); Mean Corpuscular Hemoglobin 29.8 pg (27.0-33.0); Mean Corpuscular Volume 89.5 fL (80.0-98.0); NRBC Abs Auto 0.000 X10*3/uL (0.0-0.012); NRBC Pct Auto 0.0 /100WBC (0.0-0.2); Platelet Count 302 X10*3/uL (160-400); Red Blood Count 4.94 X10*6/uL (4.20-5.50); White Blood Count 9.5 X10*3/uL (4.8-10.8)
[2025-06-06 14:14] LABS: Alanine Aminotransferase 28 U/L (0-31); Albumin Level 4.5 g/dL (3.5-5.0); Alkaline Phosphatase 88 U/L (39-117); Anion Gap 13 (12-20); Aspartate Amino Transferase 28 U/L (5-31); Blood Urea Nitrogen 17 mg/dL (9-16); Calcium 10.7 mg/dL (8.4-10.2); Carbon Dioxide 23 mmol/L (22-29); Chloride 105 mmol/L (96-108); Estimated Glomerular Filt Rate > 60; Iron 66 mcg/dL (30-160); Percent Iron Saturation 23 % (15-50); Potassium 3.7 mmol/L (3.3-5.1); Sodium 137 mmol/L (135-145); Total Iron Binding Capacity 282 mcg/dL (228-428); Total Protein 8.6 g/dL (6.5-8.0); Unsaturated Iron Binding 216 ug/dL
== END 2025-06-06 09:01 | disposition home or self-care (01) ==
LOC: HO.HMGCLDS 09:00
PROVIDERS: PCP Internal Medicine; Visit Provider Internal Medicine
DX: K92.2 Gastrointestinal hemorrhage, unspecified (principal); E11.9 Type 2 diabetes mellitus without complications
CPT/HCPCS: 36415; 80053; 83540; 85025

== ENCOUNTER 2025-06-27 12:29 | Outpatient (REF) | payer BC, SELFPAY ==
--- OUTSIDE RECORDS SUMMARY | 2025-06-23 04:00 | XMS_ITS ---
Author Organization [facility] Address [address] [place] [address] Care Team Providers Care Salary Manager Name Role Phone Linda Toney MD Primary Care Provider Cheatn Graff Jr Unavailable Allergies Allergen (clinical drug ingredient) Drug/Non Drug Allergy documented on EMR Reaction Allergy Type Onset Date Status amoxicillin Amoxicillin Unknown Drug Allergy Act kina acetaminophen / oxycodone Percocet Unknown Drug Allergy Active REASON FOR VISIT pateint presents today for Gastrointestinal hemorrage Medications Medication SIG (Take, Route, Frequency, Duration) Notes Start Date End Date Status Rosuvastatin Calcium 5 MG Tablet 1 tablet Orally Once a day Active NovoLOG 100 UNIT/ML Solution as directed Injection Active Vitamin D3 Active Propranolol HCl Acti ve Jardiance 10 MG Tablet 1 tablet Orally O nce a day Active Immunizations Vaccine Route Administration Date Status Comme nts Influenza Unknown 06/23/2025 Refused Social History Tobacco Use: Social History Observation Description Date Details (start date - stop date) Current Smoker NA - NA Social History Drug/Alcohol: Social Info Question Answer Notes AUDIT-C (Standard) Did you have a drink containing alcohol in the past year? No Points 0 Interpretation Negative Tobacco Use: Social Info Question Answer Notes Tobacco Use/Smoking Patient is a current smoker How many cigarettes a day do you smoke? 6-10 How often do you smoke cigarettes? every day Additional Details Category Social Info Options Details Miscellaneous: Marital status: Occupation: customer service Section Notes: Tobacco use is less than one half pack per day; alcohol use is rarely. Vital Signs Temperature 97.8 degrees Fahrenheit 06/23/20 25 Blood pressure systolic 001 mm Hg 06/23/20 25 Blood pressure diastolic 01 mm Hg 025 Height 66.5 in 06/23/2025 Weight 192.2 lbs 06/23/2025 BMI 30.55 kg/m2 06/23/2025 Encounters Encounter Location Date Provider Diagnosis [facility] [address] [place] [address] 06/23/2025 Chetan Henry Jr Rectal bleeding K62.5 Assessments Encounter Date Diagnosis (ICD Code) Assessment Notes Treatment Notes Treatment Clinical Notes Section Notes 06/23/2025 Rectal bleeding (ICD-10 - K62.5) We discussed the causes of rectal bleeding today. We discussed the differential diagnosis including anorectal sources for blood loss such as hemorrhoids, AVMs, and rectal tumors as well as other causes including diverticular disease, and colon cancer. We recommended further evaluation with colonoscopy. We discussed risks and benefits of the procedure today. She understands these and agrees to proceed. She will stop Jardiance 3 days before the procedure. She has an automated insulin pump and will continue to use her OmniPod as directed. Plan Of Treatment Future Test Test Name Order Date COLONOSCOPY 06/23/2025 Next Appt Details Provider Name:Chetan Jack yadav Jr, 07/21/2025 12:30:00 PM, [address] [place] [address] , [place], [place], [id number], History and Physical Notes * HPI (History of Present Illness) Category Sub-Category Detail Notes Category Not es New symptom(s) The patient is a pleasant 40-year-old woman seen today in consultation. She was previously seen with GI problems and underwent upper endoscopy and colonoscopy which both were normal in 2011. Biopsies of the duodenum antrum and EG junction as well as the terminal ileum and colon were normal at that time. We reviewed this today. She has a history of hidradenitis suppurativa and underwent surgery under her left breast in April of this year. Since that time she has had constipation. This got somewhat better over time but for 2 weeks after she developed symptoms she noted blood in her stool. This was around Thanksgiving. She treated herself with reduction in diet to mostly liquids and is gradually adding things back. She has had no further bleeding since the 2-week period has ended. She has no complaints of abdominal or rectal pain. Weight and appetite have been stable. Examination Category Sub-Category Detail Notes Category Not es General Examination GENERAL APPEARANCE: in no acute di stress HEAD: normocephalic EYES: sclera non-icteric NECK/THYROID: no lymphadenopathy HEART: S1, S2 normal, no mu rmurs CHEST: normal shape and exp ansion LUNGS: clear to auscultatio n bilaterally ABDOMEN: soft, nontender, non distended, bowel sounds present, no organomegaly SKIN: anicteric EXTREMITIES: no clubbing, cyanosi s, or edema PSYCH: cognitive function i ntact ORAL CAVITY: mucosa moist Progress Notes * VITOR RAMIREZEDOB:[birth year] (40 yo F)Acc No.[id number]:06/23/2025 Progress Notes Patient: POOJA YU Provider: Sharon Henry MD :1985 A ge:40 Y S ex:Female Date:06/23/2025 Address:[address] [place], [place] [id number] Pcp:Linda Toney MD Subjective: * Chief Complaints: * 1 . pateint presents today for Gastrointestinal hemorrage. * HPI: N ew symptom(s): The patient is a pleasant 40-year-old woman seen today in consultation. She was previously seen with GI problems and underwent upper endoscopy and colonoscopy which both were normal in 2011. Biopsies of the duodenum antrum and EG junction as well as the terminal ileum and colon were normal at that time. We reviewed this today. She has a history of hidradenitis suppurativa and underwent surgery under her left breast in April of this year. Since that time she has had constipation. This got somewhat better over time but for 2 weeks after she developed symptoms she noted blood in her stool. This was around . She treated herself with reduction in diet to mostly liquids and is gradually adding things back. She has had no further bleeding since the 2-week period has ended. She has no complaints of abdominal or rectal pain. Weight and appetite have been stable. * ROS: G eneral/Constitutional: Change in appetite d enies. F atigue d enies. ? E NT: Patient denies d ifficulty swallowing. R espiratory: Patient denies s hortness of breath. C ardiovascular: Patient denies c hest pain. G astrointestinal: Comments S [facility] for details. G enitourinary: Difficulty urinating d enies. I ncontinence d enies. M usculoskeletal: Patient denies m uscle aches. S kin: Patient denies p ruritis. N eurologic: Patient denies l ow back pain. P sychiatric: Patient denies m ental or physical abuse. * Medical History: * Surgical History: * Hospitalization/Major Diagno stic Procedure: * Family History: F ather: diagnosed with HTN (hypertension), Heart disease, Diabetes. M other: diagnosed with HTN (hypertension), Heart disease. F amily History Verified.. denies family hx of liver and colon cancer. * Social History: T obacco Use: T obacco Use/Smoking P atient is a c urrent smoker, H ow many cigarettes a day do you smoke? 6 -10, H ow often do you smoke cigarettes? e very day. M iscellaneous: M arital status: . Occupation: customer service. D rug/Alcohol: A MIREYA-C (Standard) D id you have a drink containing alcohol in the past year? N o,?Points 0 , I nterpretation N egative. Social History Verified. T obacco use is less than one half pack per day; alcohol use is rarely. * Medications: T aking Rosuvastatin Calcium 5 MG Tablet 1 tablet Orally Once a day , Taking Vitamin D3 , Taking NovoLOG 100 UNIT/ML Solution as directed Injection , Taking Jardiance 10 MG Tablet 1 tablet Orally Once a day , Taking Propranolol HCl , Discontinued HumaLOG , Discontinued Gabapentin 100mg , Discontinued Bentyl 10 MG Capsule 1-2 capsules Orally Q 4-6 hours prn abdominal cramps and diarrhea , Medication List reviewed and reconciled with the patient * Allergies: A moxicillin, Percocet. Allergies Verified. Objective: * Vitals: W t: 192.2 lbs, Ht: 66.5 in, BMI:30.55Index, BP: 001/01 mm Hg, Temp: 97.8 F, Ht- cm: 168.91 cm, Wt-k.18 kg. * Examination: G eneral Examination: GENERAL APPEARANCE: i n no acute distress. HEAD: n ormocephalic. EYES: s clera non-icteric. ORAL CAVITY: m ucosa moist. NECK/THYROID: n o lymphadenopathy. SKIN: a nicteric. HEART: S 1, S2 normal, no murmurs. LUNGS: c lear to auscultation bilaterally. CHEST: n ormal shape and expansion. ABDOMEN: s oft, nontender, nondistended, bowel sounds present, no organomegaly . EXTREMITIES: n o clubbing, cyanosis, or edema. PSYCH: c ognitive function intact. Assessment: * Assessment: 1. R ectal bleeding - K62.5 (Primary) We discussed the causes of r ectal bleeding today. We discussed the differential diagnosis including anorectal sources for blood loss such as hemorrhoids, AVMs, and rectal tumors as well as other causes including diverticular disease, and colon cancer. We recommended further evaluation with colonoscopy. We discussed risks and benefits of the procedure today. She understands these and agrees to proceed. She will stop Jardiance 3 days before the procedure. She has an automated insulin pump and will continue to use her OmniPod as directed. Plan: * Treatment: * Immunizations: Influenza (Not administered - Refused: Patient decision) * Procedure Codes: 1 036F TOBACCO NON-USER, G8785 BP SCR NOT PRFRM REC REASON NOS * Preventive Medicine: Counseling: C are goal follow-up plan: A jane Normal BMI Follow-up D ietary management education, guidance, and counseling, B MN management provided Y es. Billing Information: * Procedure Codes: 1036F TOBACCO NON-USER. G8785 BP SCR NOT PRFRM REC REASON NOS. * Sign off status: Completed true * Provider: Sharon Henry MD Date: 08/24/2024 Generated for Kerline arenas/Yenifer/Yeitting on: 08/28/2024 01:31 PM EST
--- NOTE | ~2025-06-27 | CT_ITS ---
EXAMINATION: CT ABDOMEN PELVIS WITH IV CONTRAST HISTORY: K57.92 - Diverticulitis of intestine, part unspecified, without perforation... COMPARISON: Comparison is made with the prior examination dated 09/13/2018. TECHNIQUE: CT scan of the abdomen and pelvis was performed following administration of 85 mL Omnipaque 350 using standard departmental protocol. Coronal and sagittal reformatted images were generated and reviewed. The patient received oral contrast material. This CT exam was performed with one or more of the following dose reduction techniques: automated exposure control, adjustment of the mA and/or kV according to patient size, use of iterative reconstruction technique. DLP: 499 mGy-cm FINDINGS: LOWER CHEST: The visualized lung bases are clear. There is no pleural effusion. CARDIOVASCULATURE: The heart is normal in size. There is no pericardial effusion. LIVER: The liver is normal in size and contour. No liver mass is identified. The hepatic and portal veins are patent. GALLBLADDER / BILE DUCTS: The gallbladder is surgically absent. There is no intra or extrahepatic biliary ductal dilatation. SPLEEN: The spleen is normal in size. No focal splenic lesion is identified. PANCREAS: The pancreas is unremarkable in appearance. ADRENAL GLANDS: Within normal limits. KIDNEYS/RETROPERITONEUM: No renal calculi are identified. There is no hydronephrosis. No renal masses are identified. LYMPH NODES: No abdominal or pelvic lymphadenopathy. VASCULATURE: The abdominal aorta is normal in caliber. MESENTERY/PERITONEUM: No free fluid. No masses. There is no free intraperitoneal gas. STOMACH: The stomach is unremarkable. SMALL BOWEL: The small bowel is normal in caliber. COLON: There is a large amount of stool throughout the colon. APPENDIX: Normal. URINARY BLADDER/PELVIC ORGANS: The urinary bladder is unremarkable. An IUD is seen in the endometrial cavity of the uterus. BONES / SOFT TISSUES: No suspicious bony or soft tissue abnormalities. CT/CT abdomen pelvis w IV con IMPRESSION: Large amount of stool throughout the colon. No CT evidence of diverticulitis. Electronically signed by: Arun Mcneil MD 06/27/2025 03:21 PM [facility]
--- OUTSIDE RECORDS SUMMARY | 2025-06-27 13:32 | XMS_ITS | Encounter Summary ---
Author Organization [facility] Address [address] [place] [address] Care Team Providers Care Cop Name Role Phone Linda Toney Primary Care Provider [phone] Encounter Details Date Type Department Care Team (Late st Contact Info) Description 12/28/2024 Telephone [facility] Financial Clearance Department [address] [place] [phone] Linda Toney [address] [place] [address] Social History Tobacco Use Types Packs/Day Years [...] on filedocumented in this encounter Care Teams Cop Relationship Specialty Start Date End Date Linda Toney [address] [place] [address] PCP - General Internal Medicine 03/25/24 documented as of this encounter
--- OUTSIDE RECORDS SUMMARY | 2025-06-27 13:32 | XMS_ITS | Patient Health Record ---
Author Organization [facility] Address [address] [place] [address] Care Team Providers Care Project Controls Scheduler Name Role Phone AMY OHARA MD Primary Care Provider TANIA Esquivel Unavailable [phone] Allergies Allergen (clinical drug ingredient) Drug/Non Drug Allergy documented on EMR Reaction Allergy Type Onset Date Status sulfamethoxazole / trimethoprim Bactrim hives Drug Allergy Active acetaminophen / oxycodone Percocet rash Drug Allergy Active Penicillin hives Drug Allergy Active Reason For Referral No Information Medications Medication SIG (Take, Route, Frequency, Duration) Notes Start Date End Date Status GlucaGen HypoKit 1 MG Solution Reconstituted 0.5 mg intramuscularly prn severe hypoglycemia 09/20/2018 Active Levemir 100 UNIT/ML Solution 16 units -80% of basal rate subcutaneously once daily at bed time prn pump failure Active HumaLOG 100 UNIT/ML Solution up to 70 units per day subcutaneously continuosly via pump Active BD ULTRA-FINE NEEDLE INSULIN SYRINGES 1/2 CC, 6 MM, 31 G TO INJECT INSULIN IN CASE OF PUMP FAILURE 05/22/2015 Active Ketostix TEST URINE KETONES WHEN BG>240 REPEATEDLY NEEDED 2 X/ DAY 12/17/2015 Active YING MICROLET2 LANCETS TO TEST BLOOD GLUCOSE UP TO 8X A DAY 09/18/2017 Active Norethindrone 0.35 MG Tablet 1 tablet Orally Once a day; Duration: 28 day(s) Active Dexcom G6 Sensor - Miscellaneous as directed 07/30/2022 Active OmniPod Dash 5 Pack Pods - Change pod every 2 days 05/01/2020 Active Dexcom G6 Transmitter TO MONITOR BLOOD GLUCOSE TO CHANGE TRANSMITTER EVERY 90 DAYS 05/21/2020 Active YING CONTOUR NEXT TEST STRIPS TO CHECK BLOOD GLUCOSE UP TO 8X A DAY *Please review for potential replacement for e-prescription and drug interaction check* 09/18/2017 Active Propranolol HCl ER 160 MG Capsule Extended Release 24 Hour 1 cap(s) orally once a day Active CIMZIA 200MG/ML PREFILLED SYRINGES 200 MG KIT DIRECTED SUBCUTANEOUSLY EVERY 2 WEEKS *Please review for potential replacement for e-prescription and drug interaction check* Active OMNIPOD STARTER KIT - 05/01/2020 Active Social History Tobacco Use: Social History Observation Description Date Details (start date - stop date) Former Smoker NA - NA Social History Tobacco Use: Social Info Question Answer Notes Smoking Are you a: former smoker Additional Details Category Social Info Options Details 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 and c hildren Past year's travels: None alcohol use: no drug use: no Coffee/Tea/Soda: no Marital Status experience no Living with , son, an d daughter smokers in household no pt former s moker Problems Problem Type SNOMED Code ICD Code Onset Dates Problem Status W/U Status Risk Notes Problem Thyroid function tests abnormal (336021884) Abnormal thyroid function test (R94.6) Active confirmed Problem Vitamin D deficiency (96544891) Vitamin D deficiency, unspecified (E55.9) Active confirmed Problem Polyneuropathy due to diabetes mellitus type I (382585802) Type 1 diabetes mellitus with diabetic polyneuropathy (E10.42) Active confirmed Problem Long-term current use of insulin (731695326) FDC (current) use of insulin (Z79.4) Active confirmed Problem Type 1 diabetes mellitus affecting in first trimester, antepartum (O24.011) Active confirmed Problem Type 1 diabetes mellitus affecting in second trimester, antepartum (O24.012) Active confirmed Plan Of Treatment Future Test Test Name Order Date GLYCOHEMOGLOBIN (HBA1C) 10/11/2021 COMP. METABOLIC 10/11/2021 LIPID PROFILE 07/30/2022 CBC W/ AUTOMATED DIFF 07/30/2022 COMP. METABOLIC 07/30/2022 Urine Microalbumin(Creat/MALB Ratio) 25 OH Vitamin D 07/30/2022 TSH WITH REFLEX TO FT4 07/30/2022 A1C diagnostic(BRL) 07/30/2022 Insurance Providers Payer Name Payer Address Payer Phone Subscriber Number Group Number Insured Name Patient Relationship to Insured Coverage Start Date Coverage End Date [facility] [employer] [address] [address] [place] [address] [id number] POOJA RAMIREZ Self - patient is the insured Medical (General) History Medical History History ICD Code depression diabetes Dx 2002 during 1st PG- on glyburide during PG then on insulin. Minimed pump for yrs- pt stopped in 2013-no DKA off DM Rx for> 1 yr. ROHIT 65 Ab min. elevated, C-peptide mid nl w/ BG 270 in 05/20. T1 DM PNP LE-burning. B12 low nl in 2015. Symp toms resolved on B12 fatty liver disease migraine hypercholesterolemia GERD hypertension psoraisis pneumonia hydronitis HS psoriasis Hx high TSH in 2006-resolved spont. nl T PO Surgical History Surgery Date(Month/Year) liver biopsy 2003 emergency at 33 wks 02/18/22 Revomed abscess 07/2017 gallbladder removal 2009 Hospitalization History Reason Date(Month/Year) hydronitis 03/20/17 [facility] 6 days 02/18/22
--- OUTSIDE RECORDS SUMMARY | 2025-06-27 13:32 | XMS_ITS | Encounter Summary ---
Author Organization [facility] Address [address] [place] [phone] Phone Care Team Providers Care Tray Line Supervisor Name Role Phone Linda Toney MD Primary Care Provider [phone] Reason for Visit * Reason Onset Date Comments Medication Prior Authorization 03/01/2025 Encounter Details Date Type Department Care Team (Late st Contact Info) Description 03/01/2025 Telephone [facility] [address] [place] [address] Yesika Joiner MA [address] [place] [phone] [email or web address] Medication Prior Authorization Social History Tobacco Use Types Packs/Day Years [...] Progress Notes * Yesika Joiner MA - 03/01/2025 9:28 AM EDT EPA initiated for insulin pump cart,auto,BT,G6/7 (OMNIPOD 5 G6-G7 PODS, GEN 5,) Crtg documented in this encounter Plan of Treatment Upcoming Encounters Date Type Department Care Team (Late st Contact Info) Description 07/14/2025 8:00 AM EST Office Visit [facility] Endocrinology [address] [address] Nataliia Mortensen PA-C [address] [place] [phone] 10/18/2025 2:00 PM EDT Office Visit [facility] Endocrinology [address] [address] Karissa Boland MD [address] [place] [phone] documented as of this encounter Visit Diagnoses Not on filedocumented in this encounter Care Teams Tray Line Supervisor Relationship Specialty Start Date End Date Linda Toney MD [address] [place] [address] PCP - General Internal Medicine 01/19/23 documented as of this encounter Additional Source Comments The information contained in this document represents components of the legal health record. It is not the complete legal health record.[facility]
--- OUTSIDE RECORDS SUMMARY | 2025-06-27 13:32 | XMS_ITS | Encounter Summary ---
Author Organization [facility] Address [address] [place] [address] Care Team Providers Care Asset Protection Officer Name Role Phone Linda Toney Primary Care Provider [phone] Encounter Details Date Type Department Care Team (Late st Contact Info) Description 09/06/2024 Orders Only [facility] [address] [place] [phone] Reba Leija, PharmD Social History Tobacco Use [...] on filedocumented in this encounter Care Teams Asset Protection Officer Relationship Specialty Start Date End Date Linda Toney [address] [place] [address] PCP - General Internal Medicine 03/25/24 documented as of this encounter
--- OUTSIDE RECORDS SUMMARY | 2025-06-27 13:32 | XMS_ITS | Clinical Summary ---
Author Organization [facility] Address [address] [place] [address] Care Team Providers Care Entry Level Sales Consultant Name Role Phone Linda Toney Primary Care Provider [phone] Allergies Active Allergy Reactions Criticality Noted Date Comments Amoxicillin Hives,Itching,Rash Low 12/27/2015 Clindamycin Unknown 05/13/2024 Oxycodone Nausea And Vomiting 07/24/2017 GI upset Oxycodone-Acetaminophen Headache,Hives,L ighthead edness,Palpitations,Rash Low 01/28/2023 Penicillin Hives 01/28/2023 Sulfamethoxazole-Trimethopr im Dyspnea,Fatigue,Hives,Ra sh,Unknown High 12/27/2015 Medications camille peroxid/hydroco rt/ (CAMILLE PEROX-HC & CLEANSER NO.14 TOP) 09/16/2023 Active benzoyl peroxide 10% cleanser SMARTSIG:Top ical Daily 03/17/2024 Active blood-glucose meter,continuou s (Dexcom G7 Taper/Finisher) misc by Other route once daily as [...] by mouth every 6 hours. 05/05/2025 Active Active Problems Problem Noted Date Diagnosed [...] Dx 07/2022 followed by retina specialist in [place]. Left eye ptosis and intermittent double vision since 2022-followed by Dr. Rock at [facility]. Right carotid stenosis. Resolved Problems Problem Noted Date Diagnosed Date Resolved Date Disease due to severe acute respiratory syndrome coronavirus 2 (SARS-CoV-2) 02/22/202209/04 Overview (09/29/2024): Problem added by Discern Expert Encounters Date Type Department Care Team Description 06/23/2025 Telephone [facility] Dermatology Clinic 4th [address] [place] [address], [place] [address] Book Store Associate: Kelsy Castro MD 06/22/2025 Documentation [facility]ology [facility] 4th Floor [address] [facility], [place] [address] Book Store Associate: Gardenia Mascorro RN 05/31/2025 Documentation [facility] 4th [address] [place] [phone] Book Store Associate: Gardenia Mascorro, AN 05/23/2025 2:00 PM EST Follow-Up [facility] Wound [address] [address] Book Store Associate: Lucero Smith PA Surgery follow-up (Primary Dx) 05/22/2025 myChart Message [facility] Weight Center [address] [place] [address] Book Store Associate: Brittney Luna [facility] 05/22/2025 myChart Message [facility] Wound [address] [address] Book Store Associate: nAgelica Paulosn PA Picture 05/22/2025 Telephone [facility] Wound [address] [address] Book Store Associate: Brittney Richards Telephone Intake, Staff 05/18/2025 11:30 AM EST Follow-Up [facility] Wound [address] [address] Book Store Associate: Angelica Paulson PA Surgery follow-up (Primary Dx) 05/18/2025 Documentation [facility] D[facility]atology [facility] 4th Floor [address] [place] [phone] Book Store Associate: Gardenia Mascorro, AN 05/16/2025 Documentation [facility] 4th [address] [place] [phone] Book Store Associate: Gardenia Mascorro, RN 05/16/2025 myChart Message [facility] 4th Floor [address] [place] [phone] Book Store Associate: Gardenia Mascorro RN Infusion 05/05/2025 12:50 PM EDT Anesthesia Event [facility] Operating Room [address] [place] [address] Fco Odom MD Manning, Dana, CRNA 05/05/2025 12:15 PM EDT - 05/05/2025 1:45 PM EDT Surgery [facility] Operating Room [address] [place] [address] May Cortés MD EXCISION, SKIN AND SUBCUTANEOUS TISSUE, WITH REPAIR left breast [[id number] (CPT )] 05/05/2025 9:23 AM EDT - 05/05/2025 3:23 PM EDT Hospital Encounter [facility] Operating Room [address] [place] [address] May Cortés MD Hidradenitis suppurativa of multiple sites Discharge Disposition: Home or Self Care (01) 05/03/2025 1:15 PM EDT Follow-Up [facility] Plastic Cosmetic Surgery [address] [place] [address] Book Store Associate: May Nguyen MD Hidradenitis suppurativa of multiple sites (Primary Dx) 05/02/2025 Telephone [facility]ology [facility] [address] [phone] Book Store Associate: Allen Brooks MA 05/02/2025 Orders Only [facility] 4th [address] [place] [phone] Book Store Associate: Gabriela Garcia MD Hidradenitis suppurativa of multiple sites (Primary Dx) 04/21/2025 myChart Message [facility]ology [facility] 4th Floor [address] [facility], [place] [address] Book Store Associate: Karo Gibson, Kelsy Wolf MD INFLECTRA from [...] 03/29/2020, 06/06/2019, Additional history exists COVID-19 Vaccine ( - 2024-2 6 season) 2025 11/03/2020, 10/04/2020, 09/07/2020, Additional history exists Hemoglobin A1C 10/06/2025 04/07/2025, 10/05, 01/25/2024, Additional history exists Mammogram 2026 01/06/2024, 12/12/2021 Basic Metabolic Panel 04/07/2026 04/07/2025 , 10/29/2024, 01/25/2024 DTaP,Tdap,and Td Vaccines (2 - Td or Tdap) 01/14/2032 01/13/2022 HIV Screening Completed 05/13/2024 Hepatitis C Screening Completed 05/13/2024 Procedures * Due to [place] [employer] law, this organization might not be sharing negative HIV tests. Procedure Name Priority Date/Time Associated Diagnosis Comments TISSUE EXAM Routine 05/05/2025 1:23 PM EDT Hidradenitis suppurativa of multiple sites SD EXC SWEAT GLAND LESN AXILL,SIMPL 05/05/2025 12:25 PM EDT Hidradenitis suppurativa of multiple sites Special Needs HEPATITIS C ANTIBODY W/REFLEX TO HCV RNA, QUANTITATIVE PCR Routine 05/13/2024 9:42 AM EST High risk medication use HM MAMMOGRAPHY, BILATERAL 01/06/2024 from Last 3 Months or Most Recently Relevant to Health Maintenance Results * Due to [place] [employer] law, this organization might not be sharing negative HIV tests. * Tissue Exam (05/05/2025 1:23 PM EDT) Final Diagnosis Soft Tissue, Left Breast Wound, Excision: - Reactive hairbearing skin with marked mixed acute and chronic inflammation, granulation tissue formation, and giant cell reaction. - Soft tissue margin with focal acute inflammation. - Negative for dysplasia or carcinoma. [facility] 05/09/2025 11:39 AM EST [facility] at 1139 EST Clinical History Pre-op diagnosis: Hidradenitis suppurativa of multiple sites [L73.2] [facility] 05/09/2025 11:39 AM [facility] Gross Description 1. Breast, [...] cut surface is campos yellow and fatty. Baggageman sections are submitted as follows: 1A: Opposing ends, en face 1B-1D: Cross-sections of body [facility] 05/09/2025 11:39 AM [facility] PATHOLOG[facility] Gross Description User Grossing complete by Jazmin Doss on 05/05/2025 2:41 PM [facility] 05/09/2025 11:39 AM [facility] Embedded Images [facility] 05/09/2025 11:[address] [facility] [employer] [facility] ANATOMIC PATHOLOGY LABORATORY Resulting Agency Case was signed out at [facility], Department of Pathology, [employer] 3 CLIA [id number] [facility] 05/09/2025 11:39 AM EST [facility] Report Header Surgical Pathology Report Case: [id number] Authorizing Provider: May Cortés MD Collected: 05/05/2025 1323 Ordering Location: [facility] Received: 05/05/2025 1414 [facility] Operating Room Pathologist: Sapna Guzman MD PhD Specimen: Breast, Left, Left Breast Wound 05/09/2025 11:39 AM EST [facility] Tissue Left breast structure / Unknown 05/05/2025 1:23 PM EDT 05/05/2025 2:14 PM EDT Comment:Pre-op diagnosis: Hidradenitis suppurativa of multiple sites [L73.2] May Cortés MD LAB PATHOLOGY/CYTOLOGY ORDE RABMIKE Final Result [facility] [address] [place] [address], [facility] ANAT[facility]OLOG[facility] LAB[facility] [address] [place] [address], * Hepatitis C Antibody w/Reflex to HCV RNA, Quantitative PCR (05/13/2024 9:42 AM EST) Hepatitis C Antibody NON-REACT RIVKA NON-REACT RIVKA 05/13/2024 7:42 PM EST [facility] [employer] Comment: HCV antibody was non-reactive. There is no laboratory evidence of HCV infection. In most cases, no further action is required. However, if recent HCV exposure is suspected, a test for HCV RNA (test code 76992) is suggested. For additional information please refer to http://education.ipvive.Wellkeeper/faq/RFY70z7 (This link is being provided for informational/ educational purposes only.) Blood Structure of peripheral vein / Unknown Venipuncture / Unknown 05/13/2024 9:42 AM EST 05/13/2024 9:42 AM EST Narrative [facility] 05/13/2024 7:42 PM EST [facility] Received Date: us Kelsy Gibson MD LAB BLOOD ORDERABLES Final R esult [facility] [address], [place] [address], [place] [phone] [email or web address] [facility] [address] [place] [address], [place] [address], [place] [phone] * HM Mammography, Bilateral (01/06/2024) Anatomical Region Laterality Modality Other 01/06/2024 us Onbase Scan [facility] MAINTENANCE Final Resu lt from Last 3 Months or Most Recently Relevant to Health Maintenance Insurance BCBS OUT OF STATE PPO Advance Directives * Full Code (Latest Code Status on File) Date Activated Date Inactivated Comments 05/05/2025 12:12 PM 05/05/2025 5:23 PM Care Teams Entry Level Sales Consultant Relationship Specialty Start Date End Date Linda Toney [address] [place] [address] PCP - General Internal Medicine 03/25/24
--- OUTSIDE RECORDS SUMMARY | 2025-06-27 13:32 | XMS_ITS | Encounter Summary ---
Author Organization [facility] Address [address] [place] [address] Care Team Providers Care Tool Planer Set Up Operator Name Role Phone Linda Toney Primary Care Provider [phone] Encounter Details Date Type Department Care Team (Late st Contact Info) Description 06/23/2025 Telephone [facility] Dermatology Clinic 4th Floor [address] [facility], [place] [address] County Manager: Kelsy Castro MD [address] [place] [phone] Social History Tobacco Use Types Packs/Day Years Used Date Smoking Tobacco: Never Assessed Comments No Sex and Gender Information Value Date Recorded Sex Assigned at Female 03/25/2024 10:38 AM EDT Legal Sex Female 10:33 AM EDT Gender Identity Female 05/08/2024 3:54 PM EST Sexual Orientation Straight 05/08/2024 3: 54 PM EST documented as of this encounter Miscellaneous Notes * Telephone Encounter - Kelsy Gibson MD - 06/23/2025 12:25 PM EST I The we are having issues getting infliximab covered for you as I am sure you are aware. We have been through several rounds of arguments with insurance and they have denied the medication even after appeal. My office staff that things up for a appeal of the appeal and a auto service representative from your insurance is supposed to call me on my personal cell phone today. But I have not yet heard from them.So I want to start talking about a Plan B. 1 great thing about clinical trials is we can avoid all these insurance hassles. I have 1 that might be a good option for you I am going to have my researchstaff reach out and schedule a screening visit. At that visit we will tell you about the trial see i f you qualify and you can take it or leave it. If you opt not to do it I will help you figure out another option under insurance coverage. Expect to hear from my research staff today about scheduling Happy holidays! Dr. Gibson documented in this encounter Plan of Treatment Not on file documented as of this encounter Visit Diagnoses Not on filedocumented in this encounter Care Teams Tool Planer Set Up Operator Relationship Specialty Start Date End Date Linda Toney [address] [place] [address] PCP - General Internal Medicine 03/25/24 documented as of this encounter
--- OUTSIDE RECORDS SUMMARY | 2025-06-27 13:32 | XMS_ITS | Patient Health Record ---
Author Organization [facility] Address [address] [place] [address] Care Team Providers Care Stock Room Manager Name Role Phone Linda Toney MD Primary Care Provider Chetan Graff Jr Unavailable [phone] Allergies Allergen (clinical drug ingredient) Drug/Non Drug Allergy documented on EMR Reaction Allergy Type Onset Date Status amoxicillin Amoxicillin Unknown Drug Allergy Act kina acetaminophen / oxycodone Percocet Unknown Drug Allergy Active Reason For Referral No [...] nts Influenza Unknown 06/23/2025 Refused Social History Social History Drug/Alcohol: Social Info Question Answer Notes AUDIT-C (Standard) Did you have a drink containing alcohol in the past year? No Points 0 Interpretation Negative Additional Details Category Social Info Options Details Miscellaneous: Marital status: Occupation: customer service Section Notes: Tobacco use is less than one half pack per day; alcohol use is rarely. Tobacco use is less than one half pack per day; alcohol use is rarely. Problems Problem Type SNOMED Code ICD Code Onset Dates Problem Status W/U Status Risk Notes Problem Periumbilical pain (429608680) Abdominal pain, periumbilic (789.05) Active confirmed Vital Signs Temperature 97.8 degrees Fahrenheit 06/23/2025 Blood pressure diastolic 01 mm Hg 06/23/2025 Height 66.5 in 06/23/2025 Blood pressure systolic 001 mm Hg 06/23/2025 Weight 192.2 lbs 06/23/2025 BMI 30.55 kg/m2 06/23/2025 Encounters Encounter Location Date Provider Diagnosis [facility] [address] [place] [address] 06/23/2025 Chetan Henry Jr Rectal bleeding K62.5 [...] COLONOSCOPY 06/23/2025 Next Appt Details Provider Name:Chetan Santiago Brooks leif Burton, 07/21/2025 12:30:00 PM, [address] [place] [address] , [place], [place], [phone], Insurance Providers Payer Name Payer Address Payer Phone Subscriber Number Group Number Insured Name Patient Relationship to Insured Coverage Start Date Coverage End Date [facility] [address] [place] [address] [id number] POOJA YEAGER Self - patient is the insured Medical (General) History Medical History History ICD Code diabetes mellitus type 1 neuropathy fatty liver hypercholesterolemia HS EGD/colonoscopy 2011, normal including biopsies of the duodenum antrum EG junction, terminal ileum and colon Surgical History Surgery Date(Month/Year) cholecystectomy Surgery for hidradenitis suppurativa
--- OUTSIDE RECORDS SUMMARY | 2025-06-27 13:32 | XMS_ITS | Encounter Summary ---
Author Organization [facility] Address [address] [place] [address] Phone Care Team Providers Care Dry Food Products Mixer Name Role Phone Linda Toney MD Primary Care Provider [phone] Reason for Visit * Reason Onset Date Comments Medication Prior Authorization 02/28/2025 Encounter Details Date Type Department Care Team (Late st Contact Info) Description 02/28/2025 Telephone [facility] Endocrinology Clinic [address] [place] [address] Yesika Joiner MA [address] [place] [address] [email or web address] Medication Prior Authorization Social History Tobacco Use [...] Progress Notes * Yesika Joiner MA - 03/02/2025 12:05 PM EDT Images from the original note were not included. Prior auth for insulin pump cart,auto,BT,G6/7 (OMNIPOD 5 G6-G7 PODS, GEN 5,) Crtg APPROVED Authorized from March 02, 2025 to March 02, 2026 * Yesika Joiner MA - 02/28/2025 8:57 AM EDT EPA initiated for insulin aspart U-100 (NOVOLOG) 100 unit/mL injection vial documented in this encounter Plan of Treatment Upcoming Encounters Date Type Department Care Team (Late st Contact Info) Description 07/14/2025 8:00 AM EST Office Visit [facility] Endocrinology Clinic [address] [place] [address] Nataliia Mortensen PA-C [address] [place] [address] 10/18/2025 2:00 PM EDT Office Visit [facility] Endocrinology Clinic [address] [place] [address] [place] [address] Karissa Boland MD [address] [place] [address] documented as of this encounter Visit Diagnoses Not on filedocumented in this encounter Care Teams Dry Food Products Mixer Relationship Specialty Start Date End Date Linda Toney MD [address] [place] [address] PCP - General Internal Medicine 7/17/23 documented as of this encounter Additional Source Comments The information contained in this document represents components of the legal health record. It is not the complete legal health record.[facility]
--- OUTSIDE RECORDS SUMMARY | 2025-06-27 13:32 | XMS_ITS | Clinical Summary ---
Author Organization [facility] Address [address] [place] [address] Care Team Providers Care Rough Rice Grader Name Role Phone Raul Titus MD Primary Care Provider [phone] Surgical History Surgery Date Site/Laterality Comments CHOLECYSTECTOMY PROCEDURE:CHOLECYSTECTOMY DENTAL SURGERY PROCEDURE:DENTAL SURGERY INGUINAL HIDRADENITIS EXCISION 07/27/2017 Left PROCEDURE:INGUINAL HIDRADENITIS EXCISION;COMMENT:Procedure: EXCISION HIDRADENITIS INGUINAL LEFT; Surgeon: Josie Rivera MD; Location: [facility] MAIN OPERATING ROOM; Service: General; [...] on file Sexual Orientation Not on file Plan of Treatment Health Maintenance Due Date [...] age to complete this topic Care Teams Rough Rice Grader Relationship Specialty Start Date End Date Raul Titus MD [address] [place] [address] [address] MAYRA José PCP - General 07/24/17
--- OUTSIDE RECORDS SUMMARY | 2025-06-27 13:32 | XMS_ITS | Encounter Summary ---
Author Organization [facility] Address [address] [place] [address] Care Team Providers Care Orthopedic Rn Name Role Phone Linda Toney Primary Care Provider [phone] Encounter Details Date Type Department Care Team (Late st Contact Info) Description 05/22/2025 myChart Message [facility] W[facility] [address] [place] [address] [phone] Store Product Demonstrator: Angelica Paulson PA [address] [place] [address] [phone] Picture Social History Tobacco Use Types Packs/Day [...] on filedocumented in this encounter Care Teams Orthopedic Rn Relationship Specialty Start Date End Date Linda Toney [address] [place] [address] PCP - General Internal Medicine 03/25/24 documented as of this encounter
--- OUTSIDE RECORDS SUMMARY | 2025-06-27 13:32 | XMS_ITS | Encounter Summary ---
Author Organization [facility] Address [address] [place] [address] Care Team Providers Care Sas Programmer Analyst Name Role Phone Linda Toney Primary Care Provider [phone] Encounter Details Date Type Department Care Team (Late st Contact Info) Description 06/22/2025 Documentation [facility] Dermatology Clinic 4th Floor [address] [facility], Fourth [place] [phone] Parking Meter Servicer: Gardenia Mascorro, AN Social History Tobacco Use Types Packs/Day Years Used Date Smoking Tobacco: Never Assessed Comments No Sex and Gender Information Value Date Recorded Sex Assigned at Female 03/25/2024 10:38 AM EDT Legal Sex Female 10:33 AM EDT Gender Identity Female 05/08/2024 3:54 PM EST Sexual Orientation Straight 05/08/2024 3: 54 PM EST documented as of this encounter Progress Notes * Gardenia Ch RN - 06/22/2025 2:40 PM EST Forms were sent to the provider and the patient to complete to begin an external review the patientmust request this review on behalf of herself from the insurance and sign the form to authorize theoffice to speak on her behalf the provider must sign the form and indicate the reason for the external request based on the upheld denial the form sent via VIPerks to both parties to complete . Patient advised to call the company to expedite the process for review which the patient has the option to attend the meeting about the the review and can be scheduled within 45 days if patient chooses that option . Otherwise the form will be mailed and will take several weeks documented in this encounter Plan of Treatment Not on file documented as of this encounter Visit Diagnoses Not on filedocumented in this encounter Care Teams Sas Programmer Analyst Relationship Specialty Start Date End Date Linda Toney [address] [place] [address] PCP - General Internal Medicine 03/25/24 documented as of this encounter
--- OUTSIDE RECORDS SUMMARY | 2025-06-27 13:32 | XMS_ITS | Encounter Summary ---
Author Organization [facility] Address [address] [place] [address] Care Team Providers Care Paste Up Copy Camera Operator Name Role Phone Linda Toney Primary Care Provider [phone] Encounter Details Date Type Department Care Team (Late st Contact Info) Description 02/10/2025 Spotlight At Nighthart Message [facility] Operating Room [address] [place] [address] Mychart, Generic Provider [address] [place], [place] [phone] Questionnaire Submission Social History Tobacco Use Types [...] on filedocumented in this encounter Care Teams Paste Up Copy Camera Operator Relationship Specialty Start Date End Date Linda Toney [address] [place] [address] PCP - General Internal Medicine 03/25/24 documented as of this encounter
--- OUTSIDE RECORDS SUMMARY | 2025-06-27 13:32 | XMS_ITS | Encounter Summary ---
Author Organization [facility] Address [address] [place] [address] Phone Care Team Providers Care Sanitation Lead Name Role Phone Linda Toney MD Primary Care Provider [phone] Reason for Visit * Reason Onset Date Comments Medication Prior Authorization 04/05/2025 Encounter Details Date Type Department Care Team (Late st Contact Info) Description 04/05/2025 Telephone [facility] Endocrinology Clinic [address] [place] [address] Yesika Joiner MA [address] [place] [address] [email or web address] Medication Prior Authorization Social History Tobacco Use [...] Progress Notes * Yesika Joiner MA - 04/05/2025 9:33 AM EDT Images from the original note were not included. Prior auth for Dexcom G7 Sensors APPROVED * Yesika Joiner MA - 04/05/2025 9:30 AM EDT Prior auth for Dexcom G7 Sensors [facility] Ebony Varghese ([place]: [id number]) documented in this encounter Plan of Treatment Upcoming Encounters Date Type Department Care Team (Late st Contact Info) Description 07/14/2025 8:00 AM EST Office Visit [facility] Endocrinology [address] [address] Nataliia Mortensen PA-C [address] [place] [address] 10/18/2025 2:00 PM EDT Office Visit [facility] Endocrinology [address] [address] Karissa Boland MD [address] [place] [address] documented as of this encounter Visit Diagnoses Not on filedocumented in this encounter Care Teams Sanitation Lead Relationship Specialty Start Date End Date Linda Toney MD [address] [place] [address] PCP - General Internal Medicine 01/19/23 documented as of this encounter Additional Source Comments The information contained in this document represents components of the legal health record. It is not the complete legal health record.[facility]
--- OUTSIDE RECORDS SUMMARY | 2025-06-27 13:32 | XMS_ITS | Clinical Summary ---
Author Organization [facility] Address [address] [place] [address] Phone Care Team Providers Care Signal Intelligence Analyst Name Role Phone Linda Toney MD Primary Care Provider Allergies Active Allergy Reactions [...] in 07/2022, followed by retina specialist in [place]. Left eye ptosis and intermittent double vision since 2022- followed by Dr. Rock at [facility]. Right carotid stenosis. Questioning the type [...] Dx 07/2022 followed by retina specialist in [place]. Left eye ptosis and intermittent double vision since 2022-followed by Dr. Rock at [facility]. Right carotid stenosis. C-peptide measured in [...] her glucose levels. [facility] ordered Assessment & Plan (02/06/2024 6:22 [...] her glucose levels. Up to date with [facility]. Labs ordered Assessment & Plan (08/02/2023 4:58 [...] Type Department Care Team Description 05/31/2025 Refill [facility] [address] [place] [address] Nataliia Mortensen PA-C Medication Refill 04/10/2025 11:43 AM EDT - 04/10/2025 11:59 PM EDT Hospital Encounter [facility] [address] [place] [address] Nataliia Mortensen PA-C Discharge Disposition: Home or Self Care 04/10/2025 10:20 AM EDT Office Visit [facility] [address] [place] [address] Karissa Boland MD 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, macular edema presence unspecified, unspecified laterality, unspecified proliferative retinopathy type (Primary Dx); Type 1 diabetes mellitus with hyperglycemia; Vitamin D deficiency, unspecified; Insulin pump in place; Carotid stenosis, asymptomatic, right 04/10/2025 Transcribe Orders [facility] [address] [place] [address] Nataliia Mortensen PA-C Type 1 diabetes mellitus with hyperglycemia (Primary Dx) 04/07/2025 4:17 PM EDT - 04/07/2025 11:59 PM EDT Hospital Encounter [facility] [address] [place] [id number] Nataliia Mortensen PA-C Discharge Disposition: Home or Self Care 04/05/2025 Telephone [facility] Endocrinology [facility] [address] [place] [address] Yesika Joiner MA Medication Prior Authorization from Last 3 [...] Description 07/14/2025 8:00 AM EST Office Visit [facility] Endocrinology [address] [place] [address] Nataliia Mortensen PA-C [address] [place] [address] 10/18/2025 2:00 PM EDT Office Visit [facility] Endocrinology [address] [place] [address] Karissa Boland MD [address] [place] [address] [email or web address] Health Maintenance Due Date Last Done Comments [...] EDT) TSH 0.81 0.27 - 4.20 uIU/mL [facility] Blood 04/07/2025 4:27 PM EDT 04/07/2025 6:27 PM EDT Nataliia Fitzpatrickpayton Mortensen PA-C LAB BLOOD LEENAR [place] SHORT Final Result Performing Organization Address City/[facility]/ZIP Co de Phone Number [address] [address] * Alanine aminotransferase (ALT) (04/07/2025 4:27 PM EDT) ALT 29 0 - 40 U/L [facility] Blood 04/07/2025 4:27 PM EDT 04/07/2025 6:27 PM EDT Nataliia Fitzpatrickpayton Mortensen PA-C LAB BLOOD ELVIRA SHORT Final Result Performing Organization Address [facility] Co de Phone Number [address] [address] * Aspartate aminotransferase (AST) (04/07/2025 4:27 PM EDT) AST 28 0 - 37 U/L [facility] Blood 04/07/2025 4:27 PM EDT 04/07/2025 6:27 PM EDT Nataliia Fitzpatrickpayton Mortensen PA-C LAB BLOOD ELVIRA SHORT Final Result Performing Organization Address City/[facility]/ZIP Co de Phone Number [address] [address] * (ABNORMAL) Hemoglobin A1c (04/07/2025 4:27 PM EDT) HEMOGLOBIN A1C 7.2(H) 4.3 - 5.8 % [facility] Blood 04/07/2025 4:27 PM EDT 04/07/2025 4:30 PM EDT us Nataliia Mortensen PA-C LAB BLOOD LEENAR [place] VITALEMIKE Final Result Performing Organization Address [facility] Co de Phone Number [address] [address] * (ABNORMAL) Lipid panel (04/07/2025 4:27 PM EDT) HDL 35 mg/dL [facility] Comment: Interpretation <40 mg/dL: Low HDL cholesterol (major risk factor for CHD) Greater than or equal to 60 mg/dL: High HDL cholesterol ( negative risk factor for CHD) HDL - cholesterol is affected by a number of factors, e.g. smoking, excerise, hormones, sex and age. CHOLESTEROL 183 0 - 240 mg/dL [facility] TRIGLYCERIDES 260(H) 30 - 160 mg/dL [facility] LDL 96 50 - 129 mg/dL [facility] Comment: LDL levels in terms of risk for coronary heart disease: <100 mg/dL: Optimal 100-129 mg/dL: Near or above optimal 130-159 mg/dL: Borderline high 160-189 mg/dL: High >190 mg/dL: Very High CARDIAC RISK RATIO 5.2(H) 3.3 - 4.4 [facility] Blood 04/07/2025 4:27 PM EDT 04/07/2025 4:31 PM EDT us Nataliia Mortensen PA-C LAB BLOOD LEENAR [place] VITALEMIKE Final Result Performing Organization Address [facility]/ZIP Co de Phone Number [address] [address] * (ABNORMAL) Basic metabolic panel (04/07/2025 4:27 PM EDT) SODIUM 138 133 - 146 mmol/L [facility] CHLORIDE 105 96 - 108 mmol/L [facility] POTASSIUM 3.4 3.3 - 5.1 mmol/L [facility] Comment:Specimen slightly he molyzed, result may be falsely elevated. CO2 22 21 - 35 mmol/L [facility] BUN 13 6 - 19 mg/dL [facility] CREATININE 0.70 0.5 - 1.5 mg/dL [facility] GLUCOSE 106(H) 70 - 99 mg/dL [facility] CALCIUM 9.2 8.4 - 10.3 mg/dL [facility] EGFR 111 >59 mL/min/1.7 3m2 [facility] Comment:Estimated glomerular filtration rate calculated using the CKD-EPI refit equation. ANION GAP 14 10 - 20 mmol/L [facility] Blood 04/07/2025 4:27 PM EDT 04/07/2025 6:27 PM EDT us Nataliia Mortensen PA-C LAB BLOOD BKR [place] SHORT Final Result [facility] [address] [place], [place] [id number] from Last [address] [place] [address] [place] [address] PPO [facility] OUT OF STATE PPO [facility] OUT OF [facility] PPO [place] [place] OUT OF STATE PPO [place] OUT OF STATE PPO Care Teams Signal Intelligence Analyst Relationship Specialty Start Date End Date Linda Toney MD [address] [place] [address] PCP - General Internal Medicine 01/19/23 Additional Source Comments The information contained in this document represents components of the legal health record. It is not the complete legal health record.[facility]
--- OUTSIDE RECORDS SUMMARY | 2025-06-27 13:32 | XMS_ITS | Clinical Summary ---
Author Organization [facility] Prior to 12/03/[address] [place] [address] Care Team Providers Care Carpet Yarn Winder Operator Name Role Phone ArielaRaul Primary Care Provider [phone] Allergies Active Allergy Reactions Criticality Noted Date [...] age to complete this topic Care Teams Carpet Yarn Winder Operator Relationship Specialty Start Date End Date Raul Titus DO [address] [place] [address] PCP - General 07/24/17
--- OUTSIDE RECORDS SUMMARY | 2025-06-27 13:32 | XMS_ITS | Encounter Summary ---
Author Organization [facility] Address [address] [place] [address] Care Team Providers Care Dredgemaster Name Role Phone FengLinda Primary Care Provider [phone] Encounter Details Date Type Department Care Team (Late st Contact Info) Description 05/22/2025 LSAT [place] Message [facility] [address] [place] [id number] Hr Payroll Coordinator: Brittney Luna, Generic Provider [address] [place], [place] [id number] [facility] Social History Tobacco Use Types [...] on filedocumented in this encounter Care Teams Dredgemaster Relationship Specialty Start Date End Date Linda Toney [address] [place] [address] PCP - General Internal Medicine 03/25/24 documented as of this encounter
[2025-06-27] MEDS: iohexoL 350 MG/ML 100 ML INFUS..BTL IV (15:08)
[2025-06-27] MEDS: Barium Sulfate Oral (Vanilla) 450 ML ORAL.SUSP 900 ML PO (15:09)
== END 2025-06-27 12:30 ==
LOC: HO.CT 12:29
PROVIDERS: PCP Internal Medicine; Visit Provider Internal Medicine
DX: K57.92 Diverticulitis of intestine, part unspecified, without perforation or abscess without bleeding (principal)
CPT/HCPCS: 74177; Q9967

== ENCOUNTER → 2025-06-27 12:32 | Outpatient (BNV) | payer BC, SELFPAY | PROVIDERS: PCP Internal Medicine; Visit Provider Radiology Diagnostic Radiology | DX: K57.92 Diverticulitis of intestine, part unspecified, without perforation or abscess without bleeding (principal) | CPT/HCPCS: 74177 ==